=== PATIENT | female | born 1950 | race Caucasian/White ===

== ENCOUNTER 2023-02-14 08:48 | Outpatient (OUT) | payer MEDICARE, SELFPAY ==
[2023-02-14 09:42] LABS: Basophils Absolute Auto 0.1 10^3/uL (0.0-0.1); Basophils Percent Auto 0.6 % (0.2-2.0); Eosinophils Absolute Auto 0.3 10^3/uL (0.0-0.7); Eosinophils Percent Auto 3.2 % (0.9-7.0); Hematocrit 39.9 % (36.0-48.0); Hemoglobin 12.3 g/dL (12.0-16.0); Immature Granulocytes Abs Auto 0.12 10^3/uL (0.00-0.03); Immature Granulocytes Pct Auto 1.1 % (0.0-0.5); Lymphocytes Absolute Auto 2.1 10^3/uL (1.2-3.8); Lymphocytes Percent Auto 19.8 % (20.5-60.0); Mean Corpuscular HGB Conc 30.8 g/dL (29.9-35.2); Mean Corpuscular Volume 87.7 fL (81.0-99.0); Mean Platelet Volume 9.2 fL (9.5-13.5); Monocytes Percent Auto 9.7 % (1.7-12.0); Neutrophils Percent Auto 65.6 % (43.0-75.0); Platelet Count 302 10^3/uL (150-450); Red Blood Count 4.55 10^6/uL (4.20-5.40); Red Cell Distribution Width 14.4 % (11.0-15.0); White Blood Count 10.6 10^3/uL (4.0-11.0)
[2023-02-14 09:51] LABS: Estimated Average Glucose 117 mg/dL; Glycohemoglobin A1C 5.7 % (4.5-6.2)
[2023-02-14 10:31] LABS: Alanine Aminotransferase 22 U/L (14-59); Albumin Level 3.4 g/dL (3.4-5.0); Alkaline Phosphatase 57 U/L (46-116); Anion Gap 12.5; Aspartate Amino Transferase 16 U/L (15-37); BUN Creatinine Ratio 20.4; Bilirubin Total 0.2 mg/dL (0.2-1.0); Calcium 9.9 mg/dL (8.5-10.1); Chloride 100 mmol/L (98-107); Chol HDL Ratio 2.1; Cholesterol 283 mg/dL (<=200); Estimated GFR (African America >60 (>=60); Estimated GFR (Non-African Ame 59 (>=60); Free T3 2.28 pg/mL (2.18-3.98); Globulin 3.5 g/dL; Glucose 88 mg/dL (74-106); HDL Cholesterol 134 mg/dL (40-60); Potassium 3.5 mmol/L (3.5-5.1); Sodium 140 mmol/L (136-145); Total Protein 6.9 g/dL (6.4-8.2); Triglycerides 190 mg/dL (<=150)
== END 2023-02-14 08:49 | disposition home or self-care (01) ==
PROVIDERS: PCP Family Medicine; Visit Provider Family Medicine
DX: E55.9 Vitamin D deficiency, unspecified (principal); R73.9 Hyperglycemia, unspecified; E03.9 Hypothyroidism, unspecified; G47.00 Insomnia, unspecified; R03.0 Elevated blood-pressure reading, without diagnosis of hypertension; J44.9 Chronic obstructive pulmonary disease, unspecified
CPT/HCPCS: 36415; 80053; 80061; 83036; 84436; 84443; 84481; 85025

== ENCOUNTER 2023-06-13 12:41 | Day surgery (SDC) | payer OTHER, SELFPAY ==
[2023-06-13] VITALS (15 sets, daily range): BP systolic 105–158; BP diastolic 64–84; PULSE 87–120; TEMP 36.3–36.6; O2SAT 95–100; BMI 21.1; BMI 21.3
--- NOTE | 2023-06-13 | HP_ITS ---
Date: 06/13/2023 CHIEF COMPLAINT: Food impaction. HISTORY OF PRESENT ILLNESS: Patient is a 72-year-old female with history of COPD, hypothyroidism, macular degeneration, depression, gastroesophageal reflux disease, who presented to the emergency room this afternoon with complaint of food impaction. She reports that she was eating chicken late yesterday afternoon and felt that it lodged in her upper esophagus. She has had this happen several other times in the past, but always was able to bring it up or swallow it down. She did try multiple tricks and was unable to get it to dislodge. She is unable to eat or drink and has been spitting up some of her saliva as well. In the emergency room, she had normal laboratory evaluation. Did have Glucagon with no results. She did have a normal EGD approximately two years ago, which was done for gastroesophageal reflux disease. She does take PPIs intermittently, just [id number]. She denies aspirin, nonsteroidal anti-inflammatory drugs. Only abdominal surgery has been a cholecystectomy. PAST SURGICAL HISTORY: Significant for the cholecystectomy, bilateral cataract extraction, previous EGD and colonoscopy in 2021. SOCIAL HISTORY: She is a former smoker. Rare alcohol use. No illicit drug use. FAMILY HISTORY: Noncontributory. ALLERGIES: Patient has no known drug allergies. HOME MEDICATIONS: Include albuterol inhaler, amitriptyline and levothyroxine, as well as [id number] proton pump inhibitor. REVIEW OF SYSTEMS: Ten system review of systems is negative for recent weight loss or weight gain. She denies increased fatigue or light-headedness. Has had no earache or tinnitus. No sinus congestion. No sore throat or hoarseness. No chest pain, palpitations or syncope. No chronic cough, shortness of breath or hemoptysis. No abdominal pain, nausea or vomiting. No diarrhea, constipation or decreased caliber of the stool. No melena, hematochezia or bright red blood per rectum. No dysuria, frequency, urgency or hematuria. No headaches, seizures or tremors. No easy bruising or bleeding. No heat or cold intolerance. No polydipsia, polyphagia or polyuria. PHYSICAL EXAM: VITAL SIGNS: Patient is afebrile. Blood pressure is 136/74. Heart rate is 104 and regular. Respiratory rate is 16. O2 saturation is 96% on room air. GENERAL: In general, she is an elderly, white female in no acute distress. HEENT: Normocephalic, atraumatic. Sclerae anicteric. Conjunctiva not injected. Oral mucosa is moist without lesions. NECK: Supple. No adenopathy, thyromegaly or JVD. LUNGS: Clear bilaterally. CARDIAC EXAM: Regular rhythm and rate without appreciable murmurs, rubs or gallops. ABDOMEN: Soft, non-tender, non-distended. There are normal bowel sounds. No masses, hepatosplenomegaly or hernias. No CVA tenderness. SKIN: Warm and dry without lesions, rashes or ulcers. NEURO EXAM: Non-focal. Non-lateralizing. Patient is awake, alert, oriented with appropriate affect. MUSCULOSKELETAL EXAM: Reveals normal muscle strength, mass and tone. ASSESSMENT: A 72-year-old female with evidence of food impaction, long history of gastroesophageal reflux disease. PLAN: The plan is to proceed with EGD under general anesthesia for possible reduction or removal of food bolus. Indications, risks, benefits, alternatives of proceeding were explained extensively to the patient, including risks of bleeding, aspiration, esophageal/gastric/duodenal perforation or anesthetic complications. All of her questions were answered. Informed consent was obtained. CC: Patient?s family physician GLORIA
--- NOTE | 2023-06-13 | OP_ITS ---
OPERATION DATE: 06/13/2023 PREOPERATIVE DIAGNOSIS: Food impaction. POSTOPERATIVE DIAGNOSIS: Food impaction in the upper esophagus and small hiatal hernia. PROCEDURE: EGD with removal and reduction of food bolus. SURGEON: Italo Mark M.D. ANESTHESIA: General endotracheal. ESTIMATED BLOOD LOSS: Zero. INDICATIONS AND CONSENT: Patient is a 72-year-old female with an approximately 24 hour history of a food impaction of the upper esophagus. She was unable to eat or drink or swallow most of her saliva. Indications, risks, benefits, alternatives of proceeding with EGD with removal/reduction of food bolus were explained extensively to the patient, including the risks of bleeding, aspiration, esophageal/gastric/duodenal perforation or anesthetic complications. All of her questions were answered. Informed consent was obtained. PROCEDURE: Patient brought to the operating room, placed in the supine position. General anesthesia was induced. She was then placed in the left lateral decubitus position. Bite block was placed in the patient?s mouth. Scope was inserted into the oropharynx. Under direct visualization, it was advanced. In the upper esophagus, right at the area of the cricopharyngeus, there was noted to be a food bolus consisting of chicken that was obstructing the esophagus. With the graspers, I was able to break up several chunks of the chicken and pull this out through the scope. This allowed it to then be dislodged and went down the esophagus into the stomach. The scope was advanced. There was no irritation of bleeding. There was some liquid within the stomach, no other food, no other gastric mucosal abnormalities. The scope was retroflexed. There was noted to be a sliding type, small hiatal hernia. The GE junction was noted at approximately 37 cm. There was some mild distal esophagitis without Mendiola?s changes. Within the upper esophagus, there was noted to be an inlet patch, as well as some irritation from where the food bolus was sitting, but no ulceration or bleeding. The scope was then withdrawn. Patient tolerated procedure well, was extubated, sent to recovery room in good condition. CC: Masoud Taylor M.D. [facility]ITALLouie
--- NOTE | 2023-06-13 13:04 | ED.GENADUL1 ---
HPI HPI - General Adult General Chief complaint: Skin/Abscess/Foreign Body Stated complaint: DIFFICULTY SWALLOWING Time Seen by Provider: 06/13/23 13:04 Source: patient Mode of arrival: walk-in Limitations: no limitations History of Present Illness HPI narrative: This patient is here for probable esophageal foreign body. She states that she was eating some boiled chicken last night and a piece of chicken got stuck. She has not been able to eat or drink anything since that time. She says it happened several times previously but it always passed without therapeutic intervention. She said that Dr. Sims did an upper endoscopy on her several years ago and it was normal. Related Data Home Medications ?Medication ?Instructions ?Recorded ?Confirmed albuterol sulfate 90 mcg/actuation inhalation 06/13/23 aerosol inhaler amitriptyline 150 mg tablet mg 06/13/23 fluticasone 100 mcg-salmeterol 50 inhalation 06/13/23 mcg/dose blistr powdr for inhalation levothyroxine 88 mcg tablet mcg 06/13/23 Allergies Allergy/AdvReac Type Severity Reaction Status Date / Time No Known Drug Allergies Allergy Verified 06/13/23 12:45 Opioid HPI Opioid Management Most Recent Opioid Data: No Data to Display Exam Narrative Exam Narrative: Patient well-hydrated well-nourished comes to us with basin for salivary secretions. Her voice is normal. There is no stridor there is no respiratory distress she is not particularly anxious. Skin is warm and dry mucous membranes are moist and pink she does not appear when I asked her to drink an ounce of water she immediately regurgitates it. Her lungs are clear with no wheeze rales or rhonchi. Heart sounds are normal. Skin and integument are normal. Constitutional Vital Signs, click to edit/add: Last Vital Signs Temp 97.8 F 06/13/23 12:45 Pulse 120 H 06/13/23 12:45 Resp 18 06/13/23 12:45 BP 158/74 H 06/13/23 12:45 Pulse Ox 98 06/13/23 12:45 O2 Del Method Room Air 06/13/23 12:45 Course Vital Signs Vital signs: Vital Signs Temperature 97.8 F 06/13/23 12:45 Pulse Rate 120 H 06/13/23 12:45 Respiratory Rate 18 06/13/23 12:45 Blood Pressure 158/74 H 06/13/23 12:45 Pulse Oximetry 98 06/13/23 12:45 Oxygen Delivery Method Room Air 06/13/23 12:45 Temperature 97.8 F 06/13/23 12:45 Pulse Rate 120 H 06/13/23 12:45 Respiratory Rate 18 06/13/23 12:45 Blood Pressure 158/74 H 06/13/23 12:45 Pulse Oximetry 98 06/13/23 12:45 Oxygen Delivery Method Room Air 06/13/23 12:45 Medical Decision Making MDM Narrative Medical decision making narrative: Patient has a piece of esophageal foreign body which is probably food product from yesterday. She has passed the spontaneously in the past but did not have any success today before she arrived here and the glucagon was not helpful. We will page Dr. Sims on-call surgery Lab Data Labs: Lab Results 06/13/23 Range/Units 13:15 WBC 8.3 (4.0-11.0) 10^3/uL RBC 4.74 (4.20-5.40) 10^6/uL Hgb 12.6 (12.0-16.0) g/dL Hct 40.5 (36.0-48.0) % MCV 85.4 (81.0-99.0) fL MCH 26.6 L (26.7-34.0) pg MCHC 31.1 (29.9-35.2) g/dL RDW 14.0 (11.0-15.0) % Plt Count 294 (150-450) 10^3/uL MPV 9.5 (9.5-13.5) fL Neut % (Auto) 74.4 (43.0-75.0) % Lymph % (Auto) 12.0 L (20.5-60.0) % [place] % (Auto) 9.4 (1.7-12.0) % Eos % (Auto) 3.5 (0.9-7.0) % Baso % (Auto) 0.5 (0.2-2.0) % Neut # (Auto) 6.2 (1.4-6.5) 10^3/uL Lymph # (Auto) 1.0 L (1.2-3.8) 10^3/uL [place] # (Auto) 0.8 (0.3-0.8) 10^3/uL Eos # (Auto) 0.3 (0.0-0.7) 10^3/uL Baso # (Auto) 0.0 (0.0-0.1) 10^3/uL Abs Immat Gran (auto) 0.02 (0.00-0.03) 10^3/uL Imm/Tot Granulo (auto) 0.2 (0.0-0.5) % Discharge Plan Discharge Chief Complaint: Skin/Abscess/Foreign Body Clinical Impression: Acute esophageal obstruction Patient Disposition: Admitted as Observation Time of Disposition Decision: 13:39 Prescriptions / Home Meds: No Action levothyroxine 88 mcg tablet fluticasone propion-salmeterol 100-50 mcg/dose blister with device INHALATION albuterol sulfate 90 mcg/actuation HFA aerosol inhaler INHALATION amitriptyline 150 mg tablet Print Language: Italian Referrals: Masoud Taylro MD [Primary Care Provider] - 1 week
--- NOTE | 2023-06-13 13:08 | ECG_ITS ---
[facility] Test Date: 2023-06-13 Pat Name: JESSICA KIRKPATRICK Department: Room: - Gender: Female Investigative Agent: : [id number] Requested By: SUMANTH PEARCE Order Number: [id number] Reading MD: ROSEY AGUILLON Measurements Intervals [place] Rate: 105 P: 61 WI: 132 QRS: 53 QRSD: 72 T: 58 QT: 336 QTc: 397 Interpretive Statements 1120 Sinus tachycardia 9140 abnormal rhythm ECG No previous ECG available for comparison Electronically Signed On 06-18-2023 22:29:18 EDT by ROSEY AGUILLON
[2023-06-13] MEDS: GLUCAGON 1 MG/ML VIAL IV (13:15)
[2023-06-13 13:23] LABS: Basophils Percent Auto 0.5 % (0.2-2.0); Eosinophils Absolute Auto 0.3 10^3/uL (0.0-0.7); Eosinophils Percent Auto 3.5 % (0.9-7.0); Hematocrit 40.5 % (36.0-48.0); Hemoglobin 12.6 g/dL (12.0-16.0); Immature Granulocytes Abs Auto 0.02 10^3/uL (0.00-0.03); Immature Granulocytes Pct Auto 0.2 % (0.0-0.5); Mean Corpuscular HGB Conc 31.1 g/dL (29.9-35.2); Mean Corpuscular Hemoglobin 26.6 pg (26.7-34.0); Mean Corpuscular Volume 85.4 fL (81.0-99.0); Mean Platelet Volume 9.5 fL (9.5-13.5); Monocytes Absolute Auto 0.8 10^3/uL (0.3-0.8); Monocytes Percent Auto 9.4 % (1.7-12.0); Neutrophils Absolute Auto 6.2 10^3/uL (1.4-6.5); Neutrophils Percent Auto 74.4 % (43.0-75.0); Platelet Count 294 10^3/uL (150-450); Red Blood Count 4.74 10^6/uL (4.20-5.40); White Blood Count 8.3 10^3/uL (4.0-11.0)
[2023-06-13 13:40] LABS: Alanine Aminotransferase 19 U/L (14-59); Albumin Level 3.7 g/dL (3.4-5.0); Alkaline Phosphatase 94 U/L (46-116); Aspartate Amino Transferase 20 U/L (15-37); BUN Creatinine Ratio 20.3; Bilirubin Total 0.4 mg/dL (0.2-1.0); Calcium 9.8 mg/dL (8.5-10.1); Carbon Dioxide 25.4 mmol/L (21.0-32.0); Chloride 104 mmol/L (98-107); Estimated GFR (African America >60 (>=60); Estimated GFR (Non-African Ame >60 (>=60); Globulin 3.7 g/dL; Glucose 93 mg/dL (74-106); Potassium 3.4 mmol/L (3.5-5.1); Sodium 143 mmol/L (136-145); Total Protein 7.4 g/dL (6.4-8.2)
--- OUTSIDE RECORDS SUMMARY | 2023-06-13 17:02 | XMS_ITS | CCD ---
Author Organization [facility] Care Team Providers Care Rfid Manager Name Role Phone Sumanth Taylor Primary Care Physician RAMSES ., DR JULIO Admitting Unavailable HOY ., DR JULIO Attending Unavailable HOY ., DR JULIO Primary Care Unavailable HOY ., DR JULIO Consulting Unavailable HOY ., DR JULIO Admitting Unavailable HOY ., DR JULIO Attending Unavailable HOY ., DR JULIO Primary Care Unavailable HOY ., DR JULIO Consulting Unavailable HOY ., DR JULIO Admitting Unavailable HOY ., DR JULIO Attending Unavailable HOY ., DR JULIO Primary Care Unavailable HOY ., DR JULIO Consulting Unavailable ZIEBER, DR YENY Ferrera Consulting Unavailable NILL ., DR DAVID Admitting Unavailable NILL ., DR DAVID Attending Unavailable HOY ., DR JULIO Primary Care Unavailable ZIEBER, DR YENY Ferrera Consulting Unavailable NILL ., DR DAVID Consulting Unavailable AGUBOSIM, PRIYANK Consulting Unavailable MARK, EUSEBIO Consulting Unavailable HOY ., DR JULIO Admitting Unavailable HOY ., DR JULIO Attending Unavailable HOY ., DR JULIO Primary Care Unavailable HOY ., DR JULIO Consulting Unavailable HOY ., DR SUMANTH Tinsleyitting Unavailable HOY ., DR JULIO Attending Unavailable HOY ., DR JULIO Primary Care Unavailable HOY ., DR JULIO Consulting Unavailable Medications Current Medications Medication Drug Class(es) Dates Sig (Normalized) Sig (Original) albuterol HFA 90 mcg/inh MDI (1 source) Start: 06-19-2021 take 2 puff(s) by inhalation four times daily as needed for wheezing albuterol HFA 90 mcg/inh MDI 2 puff(s), Inhalation, QID as needed for wheezing, Refill(s) 0 Start Date: 06/19/21 Status: Ordered amitriptyline hydrochloride 100 mg oral tablet (1 source) Tricyclic Antidepressant Start: 06-19-2021 take 1 tablet by mouth once daily at bedtime amitriptyline 100 mg oral tablet 100 mg = 1 tab(s), Oral, Once a day (at bedtime), Refills(s) 0 Start Date: 06/19/21 Status: Ordered cholecalciferol 0.05 mg oral capsule (1 source) Vitamin D Start: 06-19-2021 take 1 tablet by mouth once daily Vitamin D3 2000 intl units oral Tab = 1 tab(s), Oral, Daily, tab(s), Refills(s) 0 Start Date: 06/19/21 Status: Ordered ferrous sulfate 325 mg delayed release oral tablet (1 source) Start: 06-21-2021 take 1 tablet by mouth twice daily ferrous sulfate 325 mg oral enteric coated tablet 325 mg = 1 tab(s), Oral, BID, Refills(s) 0 Start Date: 06/21/21 Status: Ordered levothyroxine sodium 0.088 mg oral tablet (1 source) l-Thyroxine Start: 06-19-2021 take 1 tablet by mouth once daily levothyroxine 88 mcg (0.088 mg) Tab 88 mcg = 1 tab(s), Oral, Daily, Refills(s) 0 Start Date: 06/19/21 Status: Ordered omeprazole 20 mg Cap-DR (1 source) Start: 06-19-2021 take 1 capsule by mouth once daily omeprazole 20 mg Cap-DR 20 mg = 1 cap(s), Oral, Daily, Refills(s) 0 Start Date: 06/19/21 Status: Ordered Symbicort 80/4.5 inhalation aerosol with adapter (1 source) Start: 06-19-2021 take 2 puff(s) by inhalation twice daily Symbicort 80/4.5 inhalation aerosol with adapter 2 puff(s), Inhalation, BID, Refill(s) 0 Start Date: 06/19/21 Status: Ordered Problems Active Problems Problem Classification Problem Date Documented Da te Episodic/Chronic Asthma (1 source) Asthma 06-19-2021 Chronic Chronic obstructive pulmonary disease and bronchiectasis (2 sources) Chronic obstructive lung disease; Translations: [Chronic obstructive pulmonary disease, unspecified] Onset: 2 06-19-2021 Chronic Deficiency and other anemia (2 sources) Iron deficiency anemia; Translations: [Iron deficiency anemia, unspecified] Onset: 2 Episodic Disorders of lipid metabolism (1 source) Hyperlipidemia, unspecified; Translations: [HYPERLIPIDEMIA UNSPECIFIED] Onset: 2 Chronic Diverticulosis and diverticulitis (5 sources) Diverticulosis of intestine, part unspecified, without perforation or abscess without bleeding; Translations: [Diverticulosis of large intestine without perforation or abscess without bleeding] Onset: 2 Chronic Esophageal disorders (3 sources) Gastroesophageal reflux disease without esophagitis; Translations: [Gastro-esophageal reflux disease without esophagitis] Onset: 2 Chronic Gastroduodenal ulcer (except hemorrhage) (1 source) Peptic ulcer 06-19-2021 Chronic Menopausal disorders (4 sources) Other primary ovarian failure; Translations: [OTHER PRIMARY OVARIAN FAILURE] Onset: 3 Chronic Mood disorders (1 source) Depressive disorder 06-19-2021 Chronic Nutritional deficiencies (2 sources) Vitamin D deficiency; Translations: [Vitamin D deficiency, unspecified] Onset: 2 06-19-2021 Chronic Osteoporosis (6 sources) Osteoporosis; Translations: [Age-related osteoporosis without current pathological fracture] Onset: 3 06-19-2021 Chronic Other gastrointestinal disorders (1 source) Irritable bowel syndrome 06-19-2021 Chronic Other gastrointestinal disorders (1 source) Altered bowel function; Translations: [Change in bowel habit] Onset: 2 Episodic Other gastrointestinal disorders (1 source) Alteration in bowel elimination 06-21-2021 Episodic Other liver diseases (1 source) Abnormal liver function 06-19-2021 Chronic Spondylosis; intervertebral disc disorders; other back problems (1 source) Low back pain 06-19-2021 Episodic Substance-related disorders (1 source) Nicotine dependence 06-19-2021 Chronic Thyroid disorders (2 sources) Hypothyroidism; Translations: [Hypothyroidism, unspecified] Onset: 2 06-19-2021 Chronic Unclassified (1 source) Body mass index 20-24 - normal 06-21-2021 Past or Other Problems Problem Classification Problem Date Documented Da te Episodic/Chronic Deficiency and other anemia (1 source) Anemia, unspecified; Translations: [ANEMIA UNSPECIFIED] Onset: 11-01-2021 Episodic Deficiency and other anemia (4 sources) Iron deficiency anemia, unspecified; Translations: [IRON DEFICIENCY ANEMIA UNSPECIFIED] Onset: 08-02-2021 Episodic Diabetes mellitus without complication (6 sources) Hyperglycemia; Translations: [Hyperglycemia, unspecified] Onset: 06-13-2021 06-19-2021 Episodic Gastroduodenal ulcer (except hemorrhage) (3 sources) H/O: peptic ulcer; Translations: [Personal history of peptic ulcer disease] Onset: 06-21-2021 Episodic Malaise and fatigue (1 source) Other fatigue; Translations: [OTHER FATIGUE] Onset: 06-16-2021 Episodic Other gastrointestinal disorders (1 source) Change in bowel habit; Translations: [CHANGE IN BOWEL HABIT] Onset: 08-04-2021 Episodic Other screening for suspected conditions (not mental disorders or infectious disease) (5 sources) Encounter for screening for malignant neoplasm of rectum; Translations: [ENC SCREEN MALIG NEOPLASM RECTUM] Onset: 06-14-2021 Episodic Residual codes; unclassified (1 source) Acquired absence of other specified parts of digestive tract; Translations: [ACQ ABSENCE OTH PART DIGESTV TRACT] Onset: 08-04-2021 Episodic Screening and history of mental health and substance abuse codes (1 source) Personal history of nicotine dependence; Translations: [PERSONAL HISTORY OF NICOTINE DEPEND] Onset: 08-04-2021 Episodic Results Test Name Value Interpretation Reference Range Facility CALCIUMon 04-23-2022 Calcium [Mass/Vol] 8.8 mg/dL Normal 8.5-10.1 [facility] Comment on above: Performed By: #### T 4, CMP, FT3, TSH, LIPID #### [facility] [address] [address] [address] Juan M Soria CREATININEon 04-23-2022 Creatinine [Mass/Vol] 0.77 mg/dL Normal 0.55-1.02 [facility] Comment on above: Performed By: #### T 4, CMP, FT3, TSH, LIPID #### [facility] [address] [address] [address] Juan M Soria EGFR-AF PALESTINIAN >60 Normal >=60 [facility] Comment on above: Performed By: #### T 4, CMP, FT3, TSH, LIPID #### [facility] [address] [address] [address] Juan M Soria EGFR-NON AF PALESTINIAN >60 Normal >=60 [facility] Comment on above: Performed By: #### T 4, CMP, FT3, TSH, LIPID #### [facility] [address] [address] [address] Juan M Soria XR DEXA BONE DENSITYon 04-17 XR DEXA BONE DENSITY EXAMINATION: XR DEX A BONE DENSITY, 04/17/2022 10:19 AM EST HISTORY: Primary ovarian failure COMPARISON: DEXA bone densitometry 06/11/2016 TECHNIQUE: Dual-energy X-ray absorptiometry (DEXA) bone density study performed for the axial skeleton. FINDINGS: SPINE ANALYSIS: Average bone mineral density is 1.009 g/cm2. T-score (standard deviation relative to young adult mean): -1.4 . -5.5% change since prior study. HIP ANALYSIS: Lowest bone mineral density is within the left femoral trochanter, 0.537 g/cm2. T-score (standard deviation relative to young adult mean): -2.7 . -6.1% change since prior study. IMPRESSION: World [employer] Organization Classification: Osteoporosis - High Fracture Risk Electronically authenticated by: YENY PEARCE Date: 2022-04-17 12:02 Normal [facility] CBC AUTO DIFFon 10-31-2021 BASO # 0.1 103/ul Normal 0.0-0.1 [facility] Comment on above: Performed By: #### C BC #### [facility] [address] [address] [address] Juan M Soria Basophils/100 WBC (Bld) 0.8 % Normal 0.2-2.0 [facility] Comment on above: Performed By: #### C BC #### [facility] [address] [address] [address] Juan M Soria EO # 0.2 103/ul Normal 0.0-0.7 [facility] Comment on above: Performed By: #### C BC #### [facility] [address] [address] [address] Juan M Soria Eosinophils/100 WBC (Bld) 3.6 % Normal 0.9-7.0 [facility] Comment on above: Performed By: #### C BC #### [facility] [address] [place] [address] Dr. Juan M Soria Erythrocyte distribution width (RBC) [Ratio] 14.9 % Normal 11.0-15.0 [facility] Comment on above: Performed By: #### C BC #### [facility] [address] [place] [address] Dr. Juan M Soria Hematocrit (Bld) [Volume fraction] 39.7 % Normal 36.0-48.0 [facility] Comment on above: Performed By: #### C BC #### [facility] [address] [place] [address] Dr. Juan M Soria Hemoglobin (Bld) [Mass/Vol] 12.7 g/dL Normal 12.0-16.0 [facility] Comment on above: Performed By: #### C BC #### [facility] [address] [place] [address] Dr. Juan M Soria IG # 0.01 10e3/ul Normal 0.00-0.03 [facility] Comment on above: Performed By: #### C BC #### [facility] [address] [place] [address] Dr. Juan M Soria IG % 0.2 % Normal 0.0-0.5 [facility] Comment on above: Performed By: #### C BC #### [facility] [address] [place] [address] Dr. Juan M Soria LYMPH # 1.2 103/ul Normal 1.2-3.8 [facility] Comment on above: Performed By: #### C BC #### [facility] [address] [place] [address] Dr. Juan M Soria Lymphocytes/100 WBC (Bld) 19.8 % Critically low 20.5-60.0 [facility] Comment on above: Performed By: #### C BC #### [facility] [address] [place] [address] Dr. Juan M Soria MANUAL DIFF REQ NO Normal [facility] Comment on above: Performed By: #### C BC #### [facility] [address] [place] [address] Dr. Juan M Soria MCH (RBC) [Entitic mass] 27.0 pg Normal 26.7-34.0 [facility] Comment on above: Performed By: #### C BC #### [facility] [address] [place] [address] Dr. Juan M Soria MCHC (RBC) [Mass/Vol] 32.0 g/dL Normal 29.9-35.2 [facility] Comment on above: Performed By: #### C BC #### [facility] [address] [place] [address] Dr. Juan M Soria MCV (RBC) [Entitic vol] 84.3 fL Normal 81.0-99.0 [facility] Comment on above: Performed By: #### C BC #### [facility] [address] [place] [address] Dr. Juan M Soria MONO # 0.5 103/ul Normal 0.3-0.8 [facility] Comment on above: Performed By: #### C BC #### [facility] [address] [place] [address] Dr. Juan M Soria Monocytes/100 WBC (Bld) 8.1 % Normal 1.7-12.0 [facility] Comment on above: Performed By: #### C BC #### [facility] [address] [place] [address] Dr. Juan M Soria NEUT # 4.0 103/ul Normal 1.4-6.5 [facility] Comment on above: Performed By: #### C BC #### [facility] [address] [place] [address] Dr. Juan M Soria Neutrophils/100 WBC (Bld) 67.5 % Normal 43.0-75.0 [facility] Comment on above: Performed By: #### C BC #### [facility] [address] [place] [address] Dr. Juan M Soria Platelet mean volume (Bld) [Entitic vol] 9.3 fL Critically low 9.5-13.5 [facility] Comment on above: Performed By: #### C BC #### [facility] [address] [address] [address] Juan M Soria PLT 245 103/ul Normal 150-450 [facility] Comment on above: Performed By: #### C BC #### [facility] [address] [address] [address] Juan M Soria RBC 4.71 106/ul Normal 4.20-5.40 [facility] Comment on above: Performed By: #### C BC #### [facility] [address] [address] [address] Juan M Soria WBC 5.9 103/ul Normal 4.0-11.0 [facility] Comment on above: Performed By: #### C BC #### [facility] [address] [place] [address] Dr. Juan M Soria FERRITINon 10-31-2021 Ferritin [Mass/Vol] 47.0 ng/mL Normal 8.0-252.0 [facility] Comment on above: Performed By: #### T 4, CMP, FT3, TSH, LIPID #### [facility] [address] [address] [address] Juan M Soria IRONon 10-31-2021 Iron [Mass/Vol] 81.0 ug/dL Normal 50.0-170.0 [facility] Comment on above: Performed By: #### I CORINA, FERR #### [facility] [address] [place] [address] Dr. Juan M Soria Outside Colonoscopyon 2021 Outside Colonoscopy [id number] 00CD:127 Normal [facility] RAD - MISCon 08-04-2021 RAD - MISC [id number] 00CD:127 Normal [facility] Reminderson 08-04-2021 Reminders - From: Mica Paredes LPN To: [facility] - Clinical; Sent: 08/04/2021 08:26:24 EDT Show up: 07/03/2031 07:00:00 EDT Subject: colonoscopy recall Due Date/Time: 08/03/2031 07:00:00 EDT Reminder/Recall Patient is due for screening colonoscopy 08/03/2031. Normal [facility] XR COLONon 08-02-2021 XR COLON EXAMINATION: XR COLO N AIR CONTR., XR COLON HISTORY: Iron deficiency anemia COMPARISON: No relevant comparison available. FLUOROSCOPY TIME: Fluoro time measures 3.9 minutes and 22 images were obtained. TECHNIQUE: An air contrast barium enema examination was performed in the usual manner. No salesperson meats abdominal radiograph was performed. Standard level fluoroscopic mode of operation utilized. FINDINGS: COLON: Small diverticula scattered along the length of colon, most frequent involving the sigmoid colon. No mass, stricture, or appreciable mucosal irregularity. OTHER: Negative. IMPRESSION: 1. Long, redundant colon without appreciable mass, stricture, or suspicious findings. 2. Mild diverticulosis. Electronically authenticated by: YENY PEARCE Date: 2021-08-02 15:06 Normal [facility] Consent for Procedure/Surger yon 06-22-2021 Consent for Procedure/Surgery [id number]:127 Normal [facility] Ambulatory Visit Summaryon 0 06-21-2021 Ambulatory Visit Summary JESSICA KIRKPATRICK :1950 Visit Date:06/21/2021 Ambulatory Visit Instructions Your Care Team Attending Physician - HERBERT CONKLIN, Joann Ferrera Primary Care Physician - Sumanth Taylor MD Referring Physician - Sumanth Taylor MD This Is Your Medications List Contact prescribing physician if questions or concerns albuterol (albuterol HFA 90 mcg/inh MDI) amitriptyline (amitriptyline 100 mg oral tablet) budesonide-formoterol (Symbicort 80/4.5 inhalation aerosol with adapter) cholecalciferol (Vitamin D3 2000 intl units oral Tab) ferrous sulfate (ferrous sulfate 325 mg oral enteric coated tablet) levothyroxine (levothyroxine 88 mcg (0.088 mg) Tab) omeprazole (omeprazole 20 mg Cap-DR) Procedures Performed Cholecystectomy, Closed fracture of left little finger, History of - L cataract extraction, History of - R cataract extraction, Kyphoplasty of fracture of spine using fluoroscopic guidance. Discharge Vitals Heart Rate (Peripheral) 96 Respiratory Rate 16 Blood Pressure 120/66 Height 154.9 cm Height 154.9 cm Weight 54.9 kg Weight 54.9 kg BMI 22.88 Medications What How Much When Instructions Unchanged albuterol (albuterol HFA 90 mcg/ inh MDI) 2 Puffs Inhalation 4 times a day as needed for as needed for wheezing Contact prescribing physician if questions or concerns Unchanged amitriptyline (amitriptyline 100 mg oral tablet) 1 Tablets By Mouth Once a day (at bedtime) Contact prescribing physician if questions or concerns Unchanged budesonide-formoterol (Symbicort 80/ 4.5 inhalation aerosol with adapter) 2 Puffs Inhalation 2 times a day Contact prescribing physician if questions or concerns Unchanged cholecalciferol (Vitamin D3 2000 intl units oral Tab) 1 Tablets By Mouth Every day Contact prescribing physician if questions or concerns Unchanged ferrous sulfate (ferrous sulfate 325 mg oral enteric coated tablet) 1 Tablets By Mouth 2 times a day Contact prescribing physician if questions or concerns Unchanged levothyroxine (levothyroxine 88 mcg (0.088 mg) Tab) 1 Tablets By Mouth Every day Contact prescribing physician if questions or concerns Unchanged omeprazole (omeprazole 20 mg Cap-DR) 1 Capsules By Mouth Every day Contact prescribing physician if questions or concerns Allergies No Known Allergies No Known Medication Allergies Problems Ongoing - Any problem that you are currently receiving treatment for. Abnormal liver function Asthma BMI 22.0-22.9, adult Chronic obstructive pulmonary disease Depression GERD (gastroesophageal reflux disease) Hyperglycemia Hypothyroidism IBS (irritable bowel syndrome) Low back pain syndrome Nicotine addiction Osteoporosis PUD (peptic ulcer disease) Vitamin D deficiency Normal [facility] Physician Referralon 022 Physician Referral [id number]:127 Normal [facility] OCC BLD IMMUNO SCREENon OCCULT BLOOD Negative Normal NEGATIVE [facility] Comment on above: Performed By: #### T 4, CMP, FT3, TSH, LIPID #### [facility] [address] [place] [address] Dr. Juan M Soria CBC AUTO DIFFon 06-13-2021 BASO # 0.0 103/ul Normal 0.0-0.1 [facility] Comment on above: Performed By: #### T 4, CMP, FT3, TSH, LIPID #### [facility] [address] [place] [address] Dr. Juan M Soria Basophils/100 WBC (Bld) 0.6 % Normal 0.2-2.0 [facility] Comment on above: Performed By: #### T 4, CMP, FT3, TSH, LIPID #### [facility] [address] [place] [address] Dr. Juan M Soria EO # 0.3 103/ul Normal 0.0-0.7 [facility] Comment on above: Performed By: #### T 4, CMP, FT3, TSH, LIPID #### [facility] [address] [place] [address] Dr. Juan M Soria Eosinophils/100 WBC (Bld) 3.8 % Normal 0.9-7.0 [facility] Comment on above: Performed By: #### T 4, CMP, FT3, TSH, LIPID #### [facility] [address] [place] [address] Dr. Juan M Soria Erythrocyte distribution width (RBC) [Ratio] 16.6 % Critically high 11.0-15.0 [facility] Comment on above: Performed By: #### T 4, CMP, FT3, TSH, LIPID #### [facility] [address] [place] [address] Dr. Juan M Soria Hematocrit (Bld) [Volume fraction] 30.7 % Critically low 36.0-48.0 [facility] Comment on above: Performed By: #### T 4, CMP, FT3, TSH, LIPID #### [facility] [address] [place] [address] Dr. Juan M Soria Hemoglobin (Bld) [Mass/Vol] 9.1 g/dL Critically low 12.0-16.0 [facility] Comment on above: Performed By: #### T 4, CMP, FT3, TSH, LIPID #### [facility] [address] [address] [address] Juan M Soria IG # 0.03 10e3/ul Normal 0.00-0.03 [facility] Comment on above: Performed By: #### T 4, CMP, FT3, TSH, LIPID #### [facility] [address] [place] [address] Dr. Juan M Soria IG % 0.5 % Normal 0.0-0.5 [facility] Comment on above: Performed By: #### T 4, CMP, FT3, TSH, LIPID #### [facility] [address] [place] [address] Dr. Juan M Soria LYMPH # 1.1 103/ul Critically low 1.2-3.8 [facility] Comment on above: Performed By: #### T 4, CMP, FT3, TSH, LIPID #### [facility] [address] [place] [address] Dr. Juan M Soria Lymphocytes/100 WBC (Bld) 16.8 % Critically low 20.5-60.0 [facility] Comment on above: Performed By: #### T 4, CMP, FT3, TSH, LIPID #### [facility] [address] [place] [address] Dr. Juan M Soria MANUAL DIFF REQ NO Normal [facility] Comment on above: Performed By: #### T 4, CMP, FT3, TSH, LIPID #### [facility] [address] [place] [address] Dr. Juan M Soria MCH (RBC) [Entitic mass] 22.4 pg Critically low 26.7-34.0 [facility] Comment on above: Performed By: #### T 4, CMP, FT3, TSH, LIPID #### [facility] [address] [place] [address] Dr. Juan M Soria MCHC (RBC) [Mass/Vol] 29.6 g/dL Critically low 29.9-35.2 [facility] Comment on above: Performed By: #### T 4, CMP, FT3, TSH, LIPID #### [facility] [address] [place] [address] Dr. Juan M Soria MCV (RBC) [Entitic vol] 75.4 fL Critically low 81.0-99.0 [facility] Comment on above: Performed By: #### T 4, CMP, FT3, TSH, LIPID #### [facility] [address] [place] [address] Dr. Juan M Soria MONO # 0.4 103/ul Normal 0.3-0.8 [facility] Comment on above: Performed By: #### T 4, CMP, FT3, TSH, LIPID #### [facility] [address] [place] [address] Dr. Juan M Soria Monocytes/100 WBC (Bld) 5.9 % Normal 1.7-12.0 [facility] Comment on above: Performed By: #### T 4, CMP, FT3, TSH, LIPID #### [facility] [address] [place] [address] Dr. Juan M Soria NEUT # 4.8 103/ul Normal 1.4-6.5 [facility] Comment on above: Performed By: #### T 4, CMP, FT3, TSH, LIPID #### [facility] [address] [place] [address] Dr. Juan M Soria Neutrophils/100 WBC (Bld) 72.4 % Normal 43.0-75.0 [facility] Comment on above: Performed By: #### T 4, CMP, FT3, TSH, LIPID #### [facility] [address] [place] [address] Dr. Juan M Soria Platelet mean volume (Bld) [Entitic vol] 9.1 fL Critically low 9.5-13.5 [facility] Comment on above: Performed By: #### T 4, CMP, FT3, TSH, LIPID #### [facility] [address] [place] [address] Dr. Juan M Soria PLT 289 103/ul Normal 150-450 [facility] Comment on above: Performed By: #### T 4, CMP, FT3, TSH, LIPID #### [facility] [address] [place] [address] Dr. Juan M Soria RBC 4.07 106/ul Critically low 4.20-5.40 [facility] Comment on above: Performed By: #### T 4, CMP, FT3, TSH, LIPID #### [facility] [address] [address] [address] Juan M Soria WBC 6.7 103/ul Normal 4.0-11.0 [facility] Comment on above: Performed By: #### T 4, CMP, FT3, TSH, LIPID #### [facility] [address] [address] [address] Juan M Soria FREE T3on 06-13-2021 FREE T3 2.54 pg/mlL Normal 2.18-3.98 [facility] Comment on above: Performed By: #### T 4, CMP, FT3, TSH, LIPID #### [facility] [address] [place] [address] Dr. Juan M Soria GLYCOHEMOGLOBIN A1Con 2021 ADA RECOMMENDATION SEE BELOW Normal [facility] Comment on above: Result Comment: ADA RECOMMENDED LIMIT 4.0 - 6.0 ADA THERAPEUTIC TARGET < 7.0 ACTION SUGGESTED > 7.0 Performed By: #### T 4, CMP, FT3, TSH, LIPID #### [facility] [address] [place] [address] Dr. Juan M Soria Glucose [Mass/Vol] 123 mg/dL Normal [facility] Comment on above: Performed By: #### T 4, CMP, FT3, TSH, LIPID #### [facility] [address] [place] [address] Dr. Juan M Soria HbA1c (Bld) [Mass fraction] 5.9 % Normal 4.5-6.2 [facility] Comment on above: Performed By: #### T 4, CMP, FT3, TSH, LIPID #### [facility] [address] [place] [address] Dr. Juan M Soria LIPID PROFILEon 06-13-2021 CHOL-HDL RATIO NORM SEE BELOW Normal [facility] Comment on above: Result Comment: 3.3 - 4.4 LOW RISK 4.4 - 7.1 AVERAGE RISK 7.1 - 11.0 MODERATE RISK >11.0 HIGH RISK Performed By: #### T 4, CMP, FT3, TSH, LIPID #### [facility] [address] [address] [address] Juan M Soria Cholesterol [Mass/Vol] 249 mg/dL Critically high <=200 [facility] Comment on above: Performed By: #### T 4, CMP, FT3, TSH, LIPID #### [facility] [address] [address] [address] Juna M Soria Cholesterol in HDL [Mass/Vol] 132 mg/dL Critically high 40-60 [facility] Comment on above: Performed By: #### T 4, CMP, FT3, TSH, LIPID #### [facility] [address] [place] [address] Dr. Juan M Soria Cholesterol in LDL [Mass/Vol] 108.4 mg/dL Normal [facility] Comment on above: Performed By: #### T 4, CMP, FT3, TSH, LIPID #### [facility] [address] [place] [address] Dr. Juan M Soria Cholesterol.total/Cho lesterol in HDL [Mass ratio] 1.9 {ratio} Normal [facility] Comment on above: Performed By: #### T 4, CMP, FT3, TSH, LIPID #### [facility] [address] [place] [address] Dr. Juan M Soria HDL NORMAL > or = 60 mg/dl - LO W CARDIOVASCULAR RISK <40 mg/dl - HIGH CARDIOVASCULAR RISK Normal [facility] Comment on above: Performed By: #### T 4, CMP, FT3, TSH, LIPID #### [facility] [address] [place] [address] Dr. Juan M Soria LDL CALC NORMAL SEE BELOW Normal [facility] Comment on above: Result Comment: <100 mg/dl OPTIMAL 100 - 129 mg/dl NEAR OR ABOVE OPTIMAL 130 - 159 mg/dl BORDERLINE HIGH 160 - 189 mg/dl HIGH >190 mg/dl VERY HIGH Performed By: #### T 4, CMP, FT3, TSH, LIPID #### [facility] [address] [place] [address] Dr. Juan M Soria Triglyceride [Mass/Vol] 43 mg/dL Normal <=150 [facility] Comment on above: Performed By: #### T 4, CMP, FT3, TSH, LIPID #### [facility] [address] [address] [address] Juan M Soria VLDL CALC 8.6 mg/dL Normal [facility] Comment on above: Performed By: #### T 4, CMP, FT3, TSH, LIPID #### [facility] [address] [address] [address] Juan M Soria PROF 14(COMP METB)on 022 Albumin [Mass/Vol] 3.6 g/dL Normal 3.4-5.0 [facility] Comment on above: Performed By: #### T 4, CMP, FT3, TSH, LIPID #### [facility] [address] [place] [address] Dr. Juan M Soria Albumin/Globulin [Mass ratio] 0.9 {ratio} Normal [facility] Comment on above: Performed By: #### T 4, CMP, FT3, TSH, LIPID #### [facility] [address] [address] [address] Juan M Soria ALP [Catalytic activity/Vol] 106 U/L Normal 46-116 [facility] Comment on above: Performed By: #### T 4, CMP, FT3, TSH, LIPID #### [facility] [address] [address] [address] Juan M Soria ALT [Catalytic activity/Vol] 24 U/L Normal 14-59 [facility] Comment on above: Performed By: #### T 4, CMP, FT3, TSH, LIPID #### [facility] [address] [address] [address] Juan M Soria Anion gap [Moles/Vol] 10.9 mmol/L Normal [facility] Comment on above: Performed By: #### T 4, CMP, FT3, TSH, LIPID #### [facility] [address] [address] [address] Juan M Soria AST [Catalytic activity/Vol] 18 U/L Normal 15-37 [facility] Comment on above: Performed By: #### T 4, CMP, FT3, TSH, LIPID #### [facility] [address] [address] [address] Juan M Soria Bilirubin [Mass/Vol] 0.2 mg/dL Normal 0.2-1.0 [facility] Comment on above: Performed By: #### T 4, CMP, FT3, TSH, LIPID #### [facility] [address] [place] [address] Dr. Juan M Soria Calcium [Mass/Vol] 8.7 mg/dL Normal 8.5-10.1 [facility] Comment on above: Performed By: #### T 4, CMP, FT3, TSH, LIPID #### [facility] [address] [place] [address] Dr. Juan M Soria Chloride [Moles/Vol] 101 mmol/L Normal 98-107 [facility] Comment on above: Performed By: #### T 4, CMP, FT3, TSH, LIPID #### [facility] [address] [place] [address] Dr. Juan M Soria CO2 [Moles/Vol] 25.9 mmol/L Normal 21.0-32.0 [facility] Comment on above: Performed By: #### T 4, CMP, FT3, TSH, LIPID #### [facility] [address] [place] [address] Dr. Juan M Soria Creatinine [Mass/Vol] 0.83 mg/dL Normal 0.55-1.02 [facility] Comment on above: Performed By: #### T 4, CMP, FT3, TSH, LIPID #### [facility] [address] [place] [address] Dr. Juan M Soria EGFR-AF PALESTINIAN >60 Normal >=60 [facility] Comment on above: Performed By: #### T 4, CMP, FT3, TSH, LIPID #### [facility] [address] [place] [address] Dr. Juan M Soria EGFR-NON AF PALESTINIAN >60 Normal >=60 [facility] Comment on above: Performed By: #### T 4, CMP, FT3, TSH, LIPID #### [facility] [address] [place] [address] Dr. Juan M Soria Globulin (S) [Mass/Vol] 4.2 g/dL Normal [facility] Comment on above: Performed By: #### T 4, CMP, FT3, TSH, LIPID #### [facility] [address] [place] [address] Dr. Juan M Soria Glucose [Mass/Vol] 92 mg/dL Normal 74-106 [facility] Comment on above: Performed By: #### T 4, CMP, FT3, TSH, LIPID #### [facility] [address] [place] [address] Dr. Juan M Soria Potassium [Moles/Vol] 3.8 mmol/L Normal 3.5-5.1 [facility] Comment on above: Performed By: #### T 4, CMP, FT3, TSH, LIPID #### [facility] [address] [place] [address] Dr. Juan M Soria Protein [Mass/Vol] 7.8 g/dL Normal 6.1-8.2 [facility] Comment on above: Performed By: #### T 4, CMP, FT3, TSH, LIPID #### [facility] [address] [place] [address] Dr. Juan M Soria Sodium [Moles/Vol] 134 mmol/L Critically low 136-145 [facility] Comment on above: Performed By: #### T 4, CMP, FT3, TSH, LIPID #### [facility] [address] [place] [address] Dr. Juan M Soria Urea nitrogen [Mass/Vol] 10.0 mg/dL Normal 7.0-18.0 [facility] Comment on above: Performed By: #### T 4, CMP, FT3, TSH, LIPID #### [facility] [address] [place] [address] Dr. Juan M Soria Urea nitrogen/Creatinine [Mass ratio] 12.0 mg/mg Normal [facility] Comment on above: Performed By: #### T 4, CMP, FT3, TSH, LIPID #### [facility] [address] [place] [address] Dr. Juan M Soria T4on 06-13-2021 T4 [Mass/Vol] 10.10 ug/dL Normal 4.80-13.90 [facility] Comment on above: Performed By: #### T 4, CMP, FT3, TSH, LIPID #### [facility] [address] [place] [address] Dr. Juan M Soria TSHon 06-13-2021 TSH Qn m[IU]/L Critically low 0.470-4.680 [facility] Comment on above: Performed By: #### T 4, CMP, FT3, TSH, LIPID #### [facility] [address] [place] [address] Dr. Juan M Soria TSH RANGE SEE BELOW Normal [facility] Comment on above: Result Comment: <0.3 4 UIU/ml HYPERTHYROID 0.34-5.60 UIU/ml EUTHYROID >5.60 UIU/ml HYPOTHYROID Performed By: #### T 4, CMP, FT3, TSH, LIPID #### [facility] [address] [place] [address] Dr. Juan M Soria VITAMIN D 25 OHon 06-13-2021 VIT D 25-OH 42.1 ng/mL Normal [facility] Comment on above: Performed By: #### T 4, CMP, FT3, TSH, LIPID #### [facility] [address] [place] [address] Dr. Juan M Soria VIT D RANGES SEE BELOW Normal [facility] Comment on above: Result Comment: <20 ng/mL Vit D deficient 20 - <30 ng/mL Vit D insufficient 30 - 100 ng/mL Vit D sufficient >100 ng/mL Potential Toxicity Performed By: #### T 4, CMP, FT3, TSH, LIPID #### [facility] [address] [place] [address] Dr. Juan M Soria Vital Signs Date Time Vital Sign Value Performing Clinician Amy swanson 06-21-2021 15:25-0400 Blood Pressure Location Joann MARK [facility] [place] 06-21-2021 15:25-0400 Diastolic blood pressure 66 mm[Hg] Joann BERUMENL [facility] 06-21-2021 15:25-0400 Heart rate 96 /min Joann NILL [facility] [place] 06-21-2021 15:25-0400 Respiratory rate 16 /min Joann BERUMENL [facility] 06-21-2021 15:25-0400 Systolic blood pressure 120 mm[Hg] Joann BERUMENL [facility] Encounters Encounter Date Encounter Type Care Provider Facility Start: 04-23-2022 End: 04-23-[address] SUMANTH TAYLOR . Facility:[facility] Start: 04-17-2022 End: 04-18-[address] SUMANTH TAYLOR . Facility:[facility] Start: 10-31-2021 End: 11-01-[address] SUMANTH TAYLOR . Facility:[facility] Start: 08-02-2021 End: 08-02-[address] JOANN MARK . Facility:[facility] Start: 06-21-2021 End: 06-21-2021 Patient encounter procedure Joann Maisha JAMAICASrikanth [facility] Start: 06-15-2021 End: 06-15-[address] SUMANTH TAYLOR . Facility:[facility] Start: 06-13-2021 End: 06-14-[address] SUMANTH TAYLOR . Facility:[facility] Procedures Date Procedure Procedure Detail Performing Clinician Cholecystectomy Joann BERUMENSrikanth Closed fracture of p halanx of left little finger (disorder) Joann JAMAICAL H/O: L cataract extraction M cinthia JAMAICAL H/O: R cataract extraction M cinthia NILL Kyphoplasty of fract ure of spine using fluoroscopic guidance Joann MARK Payers Date Payer Category Payer Medicare [id number] 1959 Unknown [id number] 1950 Unknown [id number] 2.16.84 [id number] 1950 Unknown [id number] 2.16.84 [id number] 1950 Unknown [id number] 2.16.84 [id number] 1950 Unknown [id number] 2.16.84 [id number] 1950 Unknown [id number] 2.16.84 [id number] 1950 Unknown [id number] 2.16.84 [id number] Social History Date Type Detail Facility Start: 06-21-2021 Tobacco smoking status Ex-smoker (fi nding) [facility] [place] [facility] Tobacco smoking status Smokeless tobacco user within last 30 days [facility] Sex Assigned At Female Gen[facility] [place] [facility] Clinical Note 08-02-2021 Note Date & Type Note Facility 08-02-2021 Note OPERATIVE NOTE OPERATION DATE: 08/02/2021 PREOPERATIVE DIAGNOSIS: Iron deficiency anemia, gastroesophageal reflux disease, change in bowel habits, history of peptic ulcer disease. POSTOPERATIVE DIAGNOSIS: Normal EGD and colonoscopy to 60 cm with severe diverticulosis. SURGEON: Joann Mark M.D. ANESTHESIA: Monitored anesthesia care. ESTIMATED BLOOD LOSS: Zero. INDICATIONS AND CONSENT: Patient is a 70-year-old female with history of bowel changes, mild iron deficiency anemia, as well as history of GERD and history of peptic ulcer disease. Indications, risks, benefits, alternatives of proceeding with EGD and colonoscopy were explained extensively to the patient, including the risks of bleeding, aspiration, esophageal/gastric/duodenal or colonic perforation or anesthetic complications. All of her questions were answered. Informed consent was obtained. PROCEDURE: Patient was brought to the operating room, placed in the left lateral decubitus position. Monitored anesthesia care was provided. A bite block was placed in the patient's mouth. Scope was inserted into the oropharynx. Under direct visualization, it was advanced into the esophagus, past the cricopharyngeus, down into the stomach. The stomach was insufflated with air. The pylorus was traversed down to the descending portion of the duodenum. There was no evidence of blood, mass or ulceration. There was no scarring within the pyloric channel. Scope was pulled back into the stomach and retroflexed. There was no significant hiatal hernia, no gastric mucosal abnormalities. The GE junction was noted at approximately 35 cm. There was no distal esophagitis or Mendiola's changes. Remainder of the esophagus was unremarkable. The scope was then withdrawn. The patient was then positioned for colonoscopy. Rectal exam was performed which showed no masses or blood. Scope was inserted into the anal canal. Under direct visualization was advanced. With the aid of abdominal compression and positional changes, it was only able to be advanced to 60 cm. There was noted to be severe diverticulosis as well as a tight band at 60 cm that could not be navigated. Upon withdrawal of the scope, mucosal surfaces were carefully examined. There were no mass lesions or inflammatory changes. No polyps noted. The scope was retroflexed in the anal canal. There was noted to be no significant hemorrhoidal disease. The scope was then withdrawn. Patient tolerated procedure well, was sent to recovery room in good condition. Will be sent for barium enema for further evaluation. Follow up colonoscopy will be determined by barium enema results. CC: Sumanth Taylor M.D. [facility] Signed and Approved by: DR JOANN MARK . 08/03/2021 14:01:00 [facility] Clinical Note 06-21-2021 Note Date & Type Note Facility 06-21-2021 Note Chief Complaint consultation for anemia HPI Staff 70 year old female presents on consultation from Dr. Taylor for anemia. Labs completed 06/13 with HGB 9.1 and HCT 30.7. Denies abdominal or rectal pain. No rectal bleeding. Reports one week history of dark stools. Chronic constipation. Denies nausea or vomiting. No unexplained weight loss. Denies dizziness, lightheadedness or SOB. Last colonoscopy greater than 10 years ago, reported normal per patient. No known family history of colon cancer. History of Present Illness 70 yo female with h/o COPD, asthma, hypothyroidism, GERD, depression, osteoporosis; referred for iron-deficiency anemia; reports dark/black stools, formed for several months, prior to starting Iron therapy; hb 9.1; no abdominal pain, no N/V; no hematochezia or rectal bleeding; some abdominal bloating; patient reports remote h/o ulcer disease; remote EGD and colonoscopy over 25 years ago; only abdominal operation cholecystectomy; h/o asa and ibuprofen use for arthritis; no SBE prophylaxis; no fmhx of GI malignancy or IBD; h/o smoking, quit 2 years ago. Review of Systems PHQ Score Initial Depression Screen Score: 0 ROS - Provider Constitutional: no fever, no sweats, no weight loss. Eyes: no glasses, no blurred vision, no visual loss. ENMT: no dentures, no hoarseness, no swallowing difficulties, no hearing loss, no ear infection(s), no nose bleeds. Cardiovascular: normal blood pressure, no chest pain, regular heartbeat, no heart murmur. Respiratory: no shortness of breath, no cough, no asthma, no wheezing. Gastrointestinal: no nausea, no vomiting, no diarrhea, no constipation, no blood in stool, no change in bowel habits, no abdominal pain, no hepatitis. Genitourinary: no kidney stones, no urine infection, no dysuria. Musculoskeletal: no pain, no weakness. Skin: no changing moles, no rash, no skin lumps. Neurologic: no seizures, no epilepsy, no headache. Psychiatric: no emotional or psychiatric problem. Heme/Lymph: no bleeding problems, no anemia, no blood clots, no transfusions. Allergy/Immunologic: no swollen lymph nodes/glands, no IV drug abuse. Other: Additional ROS info: Except as noted in the above Review of Systems and in the History of Present Illness, all other systems have been reviewed and are negative or noncontributory. Physical Exam Vitals & Measurements HR: 96(Peripheral) RR: 16 BP: 120/66 HT: 154.9 cm HT: 154.9 cm WT: 54.9 kg WT: 54.9 kg BMI: 22.88 HEENT: normal conjunctiva, sclera clear, no scleral icterus, EOM intact, PERRLA, oral mucosa moist without lesions. Neck: trachea midline, no mass, symmetric, no thyromegaly or nodules, no adenopathy Respiratory: lungs CTA, respirations non labored. Cardiovascular: regular rate and rhythm, increased rate, no murmur, no pedal edema or varicosities. Gastrointestinal: soft, non distended, no tenderness, no masses, no palpable hernias, diastasis recti no, no hepatosplenomegaly; normal bs Lymphatic: no cervical adenopathy, Musculoskeletal: normal gait, digits and nails without infection, nodes, cyanosis, clubbing. kyphosis Skin: no rashes, no lesions, no ulcers, no subcutaneous nodules, induration. Psychiatric/Neuro: oriented to time, place, person, judgement normal, affect appropriate for age, insight intact, no focal deficits. Tests: labs reviewed,review of old records completed, Discussed surgical options, risks, and possible complications with patient. Assessment/Plan 1. Change in bowel habits (R19.4: Change in bowel habit) plan EGD and colonoscopy under anesthesia, informed consent obtained. 2. Iron deficiency anemia (D50.9: Iron deficiency anemia, unspecified) see # 1 3. GERD (gastroesophageal reflux disease) (K21.9: Gastro-esophageal reflux disease without esophagitis) see # 1 4. History of peptic ulcer disease (Z87.11: Personal history of peptic ulcer disease) see # 1 Follow-up No qualifying data available Problem List/Past Medical History Ongoing Abnormal liver function Asthma BMI 22.0-22.9, adult Change in bowel habits Chronic obstructive pulmonary disease Depression GERD (gastroesophageal reflux disease) History of peptic ulcer disease Hyperglycemia Hypothyroidism IBS (irritable bowel syndrome) Iron deficiency anemia Low back pain syndrome Nicotine addiction Osteoporosis PUD (peptic ulcer disease) Vitamin D deficiency Historical No qualifying data Procedure/Surgical History Cholecystectomy, Closed fracture of left little finger, History of - L cataract extraction, History of - R cataract extraction, Kyphoplasty of fracture of spine using fluoroscopic guidance. Medications albuterol HFA 90 mcg/inh MDI, 2 puff(s), Inhalation, QID, PRN amitriptyline 100 mg oral tablet, 100 mg= 1 tab(s), Oral, Once a day (at bedtime) ferrous sulfate 325 mg oral enteric coated tablet, 325 mg= 1 tab(s), Oral, BID levothyroxine 88 mcg (0.088 mg) Tab, 88 mcg= 1 tab(s), Oral, Daily omeprazole 20 mg Cap-D (more content not included)... [facility] Comment on above: Result Comment: Elec tronically Signed By: HERBERT CONKLIN, Joann Mittal\Date and Time Signed: 06/21/21 17:29 EDT Evaluation + Plan note Note Date & Type Note Facility Evaluation + Plan note No data available for this section [facility] [place] [facility] Discharge instructions Note Date & Type Note Facility Hospital Discharge instructions No data available for this section [facility] [place] Summary Purpose Family History No Family History Records FoundNo Family History Records Found Advance Directives No Advanced Directives Records FoundNo Advanced Directives Records Found Additional Source Comments INFORMATION SOURCE (unrecogn ized section and content) DATE CREATED AUTHOR 08/10/2021 [facility] DATE CREATED AUTHOR AUTHOR'S ORGANIZ ATION 04/23/2022 [facility]ORDS PERTAINING TO PATIENTS WHO ARE OR HAVE BEEN ENROLLED IN A CHEMICAL DEPENDENCY/SUBSTANCEABUSE PROGRAM, SOME INFORMATION MAY BE OMITTED. This clinical summary was aggregated from multiple sources. Caution should be exercised in using it in the provision of clinical care. This summary normalizes information from multiple sources, and as a consequence, information in this document may materially change the coding, format and clinical context of patient data. In addition, data may be omitted in some cases. CLINICAL DECISIONS SHOULD BE BASED ON THE PRIMARY CLINICAL RECORDS. [employer] [facility]. provides no warranty or guarantee of the accuracy or completeness of information in this document.
--- NOTE | 2023-06-17 09:21 | SWNOTE1 ---
SW was consulted in regards to inhaler and pt needs assistance with paying for it. Pt was not admitted to floor and SW did not see pt.
== END 2023-06-13 18:05 | disposition home or self-care (01) ==
LOC: ER 13:56 → SURGOUT 16:58
PROVIDERS: Emergency Provider Emergency Medicine Emergency Medical Services; PCP Family Medicine; Visit Provider Surgery
PROC: (CPT 731; principal; 2023-06-13 16:00)
DX: T18.128A Food in esophagus causing other injury, initial encounter (principal); W44.F3XA Food entering into or through a natural orifice, initial encounter; J44.9 Chronic obstructive pulmonary disease, unspecified; E03.9 Hypothyroidism, unspecified; Z90.49 Acquired absence of other specified parts of digestive tract; Z98.42 Cataract extraction status, left eye; Z98.41 Cataract extraction status, right eye; Z87.891 Personal history of nicotine dependence; K21.00 Gastro-esophageal reflux disease with esophagitis, without bleeding; K44.9 Diaphragmatic hernia without obstruction or gangrene
CPT/HCPCS: 43247; 36415; 80053; 85025; 93005; 96374; 99285; J1094; J1610; J2704

== ENCOUNTER 2023-10-05 06:44 | Outpatient (OUT) | payer OTHER, SELFPAY ==
--- OUTSIDE RECORDS SUMMARY | 2023-10-05 06:50 | XMS_ITS | CCD ---
Author Organization [facility] Care Team Providers Care Maxillofacial Surgeon Name Role Phone Sumanth Pearce Primary Care Physician RAMSES ., DR JULIO [...] Unavailable HOY ., DR JULIO Consulting Unavailable NILL, Joann R Attending Unavailable NILL, Joann Ferrera Attending Unavailable Allergies Allergy Classification Reported Allergen(s) Allergy Type Date of Onset Reaction(s) Facility Unclassified (1 source) No Known Medication Allergies; Translations: [No Known Medication Allergies] Propensity to adverse reactions (disorder) [facility] Medications Current Medications Medication Drug Class(es) Dates Sig (Normalized) Sig (Original) albuterol HFA 90 mcg/inh MDI (2 sources) Start: 06-19-2021 take 2 puff(s) by inhalation four times daily as needed for wheezing albuterol HFA 90 mcg/inh MDI 2 puff(s), Inhalation, QID as needed for wheezing, Refill(s) 0 Start Date: 06/19/21 Status: Ordered amitriptyline hydrochloride 100 mg oral tablet (2 sources) Tricyclic Antidepressant Start: 06-19-2021 amitriptyline 100 mg oral tablet 150 mg = 1.5 tab(s), Oral, Once a day (at bedtime), Refills(s) 0 Start Date: 06/19/21 Status: Ordered Start: 06-19-2021 take 1 tablet by alfie th once daily at bedtime amitriptyline 100 mg [...] Ordered levothyroxine sodium 0.088 mg oral tablet (2 sources) l-Thyroxine Start: 06-19-2021 take 1 tablet by mouth once daily levothyroxine 88 mcg (0.088 mg) Tab 88 mcg = 1 tab(s), Oral, Daily, Refills(s) 0 Start Date: 06/19/21 Status: Ordered Start: 06-19-2021 take 1 tablet by alfie th once daily levothyroxine 88 mcg (0.088 mg) Tab 88 mcg = 1 tab(s), Oral, Daily, Refills(s) 0 Start Date: 06/19/21 Status: Ordered omeprazole 20 mg Cap-DR (1 source) Start: 06-19-2021 take 1 capsule by mouth once daily omeprazole 20 mg Cap-DR 20 mg = 1 cap(s), Oral, Daily, Refills(s) 0 Start Date: 06/19/21 Status: Ordered pantoprazole 40 mg delayed release oral tablet (1 source) Proton Pump Inhibitor Start: 06-25-2023 take 1 tablet by mouth once daily Pantoprazole [address] Tab 40 mg = 1 tab(s), Oral, Daily, Refills(s) 0 Start Date: 06/25/23 Status: Ordered Symbicort 80/4.5 inhalation aerosol with adapter (1 source) Start: 06-19-2021 take 2 puff(s) by inhalation twice daily Symbicort 80/4.5 inhalation aerosol with adapter 2 puff(s), Inhalation, BID, Refill(s) 0 Start Date: 06/19/21 Status: Ordered Trelegy Ellipta (1 source) Start: 06-25-2023 take 1 puff(s) by inhalation once daily Trelegy Ellipta 1 puff, Inhalation, Daily, Refills(s) 0 Start Date: 06/25/23 Status: Ordered Vitamin D3 2000 intl units oral Tab (1 source) Start: 06-19-2021 take 1 tablet by mouth once daily Vitamin D3 2000 intl units oral Tab = 1 tab(s), Oral, Daily, tab(s), Refills(s) 0 Start Date: 06/19/21 Status: Ordered Problems Active Problems Problem Classification Problem Date Documented Da te Episodic/Chronic Asthma (2 sources) Asthma 06-19-2021 Chronic Chronic obstructive pulmonary disease and bronchiectasis (3 sources) Chronic obstructive lung disease; Translations: [Chronic obstructive pulmonary disease, unspecified] Onset: 2 06-19-2021 Chronic Deficiency and other anemia (3 sources) Iron deficiency anemia; Translations: [Iron deficiency anemia, unspecified] Onset: 2 Episodic Diabetes mellitus without complication (7 sources) Hyperglycemia; Translations: [Hyperglycemia, unspecified] Onset: 2 06-19-2021 Episodic Disorders of lipid metabolism (1 source) Hyperlipidemia, unspecified; Translations: [HYPERLIPIDEMIA UNSPECIFIED] Onset: 2 Chronic Diverticulosis and diverticulitis (5 sources) Diverticulosis of intestine, part unspecified, without perforation or abscess without bleeding; Translations: [Diverticulosis of large intestine without perforation or abscess without bleeding] Onset: 2 Chronic Esophageal disorders (4 sources) Gastroesophageal reflux disease without esophagitis; Translations: [Gastro-esophageal reflux disease without esophagitis] Onset: 2 Chronic Gastroduodenal ulcer (except hemorrhage) (2 sources) Peptic ulcer 06-19-2021 Chronic Gastroduodenal ulcer (except hemorrhage) (4 sources) H/O: peptic ulcer; Translations: [Personal history of peptic ulcer disease] Onset: 2 Episodic Menopausal disorders (4 sources) Other primary ovarian failure; Translations: [OTHER PRIMARY OVARIAN FAILURE] Onset: 3 Chronic Mood disorders (2 sources) Depressive disorder 06-19-2021 Chronic Nutritional deficiencies (3 sources) Vitamin D deficiency; Translations: [Vitamin D deficiency, unspecified] Onset: 2 06-19-2021 Chronic Osteoporosis (7 sources) Osteoporosis; Translations: [Age-related osteoporosis without current pathological fracture] Onset: 3 06-19-2021 Chronic Other gastrointestinal disorders (2 sources) Irritable bowel syndrome 06-19-2021 Chronic Other gastrointestinal disorders (1 source) Altered bowel function; Translations: [Change in bowel habit] Onset: 2 Episodic Other gastrointestinal disorders (2 sources) Alteration in bowel elimination 06-21-2021 Episodic Other liver diseases (2 sources) Abnormal liver function 06-19-2021 Chronic Spondylosis; intervertebral disc disorders; other back problems (2 sources) Low back pain 06-19-2021 Episodic Substance-related disorders (2 sources) Nicotine dependence 06-19-2021 Chronic Thyroid disorders (3 sources) Hypothyroidism; Translations: [Hypothyroidism, unspecified] Onset: 2 06-19-2021 Chronic Unclassified (2 sources) Body mass index 20-24 - normal 06-21-2021 Past or Other Problems Problem Classification Problem Date Documented Da te Episodic/Chronic Deficiency and other anemia (1 source) Anemia, unspecified; Translations: [ANEMIA UNSPECIFIED] Onset: 11-01-2021 Episodic Deficiency and other anemia (4 sources) Iron deficiency anemia, unspecified; Translations: [IRON DEFICIENCY ANEMIA UNSPECIFIED] Onset: 08-02-2021 Episodic Malaise and fatigue (1 source) Other [...] Test Name Value Interpretation Reference Range Facility General Surgery Office/Clini c Noteon 06-27-2023 General Surgery Office/Clinic Note Chief Complaint follow up EGD HPI Staff 12 day post operative follow up post EGD with reduction of food bolus. History of Present Illness 72 yo female with h/o COPD/asthma; GERD, hypothyroidism, s/p emergent EGD for upper esophageal food impaction; EGD with small hiatal hernia and esophageal inlet patch; patient placed on Protonix; denies GERD, no problems with swallowing; eating normally. Review of Systems PHQ Score Initial Depression Screen Score: 0 SCORE ROS - Provider Constitutional: no fever, no [...] been reviewed and are negative or noncontributory. Assessment/Plan 1. Food impaction of esophagus (T18.128A: Food in esophagus causing other injury, initial encounter) continue Protonix daily; chew food well; call with problems/questions. 2. Hiatal hernia with GERD (K44.9: Diaphragmatic hernia without obstruction or gangrene) see # 1 Food entering into or through a natural orifice, initial encounter (W44.F3XA: Food entering into or through a natural orifice, initial encounter) Gastro-esophageal reflux disease without esophagitis (K21.9: Gastro-esophageal reflux disease without esophagitis) Follow-up No qualifying data available Problem List/Past Medical History Ongoing Abnormal liver function Asthma BMI 22.0-22.9, adult Change in bowel habits Chronic obstructive pulmonary disease Depression Food impaction of esophagus GERD (gastroesophageal reflux disease) Hiatal hernia with GERD History of peptic ulcer disease Hyperglycemia Hypothyroidism IBS (irritable bowel syndrome) Iron deficiency anemia Low back pain syndrome Nicotine addiction Osteoporosis PUD (peptic ulcer disease) Vitamin D deficiency Historical No qualifying data Procedure/Surgical History EGD - esophagogastroduodenoscopy (06/13/2023), Colonoscopy (08/02/2021), EGD - esophagogastroduodenoscopy (08/02/2021), Cholecystectomy, Closed fracture of left little finger, History of - L cataract extraction, History of - R cataract extraction, Kyphoplasty of fracture of spine using fluoroscopic guidance. Medications albuterol HFA 90 mcg/inh MDI, 2 puff(s), Inhalation, QID, PRN amitriptyline 100 mg oral tablet, 150 mg= 1.5 tab(s), Oral, Once a day (at bedtime) levothyroxine 88 mcg (0.088 mg) Tab, 88 mcg= 1 tab(s), Oral, Daily Pantoprazole [address] Tab, 40 mg= 1 tab(s), Oral, Daily Trelegy Ellipta, 1 puff, Inhalation, Daily Vitamin D3 2000 intl units oral Tab, 1 tab(s), Oral, Daily Allergies No Known Allergies No Known Medication Allergies Social History Alcohol - Denies Alcohol Use, 06/21/2021 Substance Abuse - Denies Substance Abuse, 06/21/2021 Tobacco Former smoker, quit more than 30 days ago Tobacco Use:. Smokeless tobacco user within last 30 days Smokeless Tobacco Use:. Cigarettes, Vaping, Started age 19.0 Years. Stopped age 68 Years. Yes, 06/25/2023 Family History Cardiac arrest: Father. Diabetes mellitus type 2: Mother. Heart disease: Brother. Ovarian cancer: Mother. [facility] Comment on above: Result Comment: Elec tronically Signed By: JAS CONKLIN, Joann Ferrera\.br\Date and Time Signed: 06/27/23 14:41 EDT Formson 06-26-2023 Forms [id number] [facility] Ambulatory Visit Summaryon 0 06-25-2023 Ambulatory Visit Summary JESSICA KIRKPATRICK :1950 Visit Date:06/25/2023 Ambulatory Visit Instructions Your Care Team Attending Physician - JAS CONKLIN, Joann Ferrera Primary Care Physician - Sumanth Pearce MD This Is Your Medications List albuterol (albuterol HFA 90 mcg/inh MDI) amitriptyline (amitriptyline 100 mg oral tablet) cholecalciferol (Vitamin D3 2000 intl units oral Tab) fluticasone/umeclidinium/ashlyn nterol (Trelegy Ellipta) levothyroxine (levothyroxine 88 mcg (0.088 mg) Tab) pantoprazole (Pantoprazole [address] Tab) Procedures Performed EGD - esophagogastroduodenoscopy (06/13/2023), Colonoscopy (08/02/2021), EGD - esophagogastroduodenoscopy (08/02/2021), Cholecystectomy, Closed fracture of left little finger, History of - L cataract extraction, History of - R cataract extraction, Kyphoplasty of fracture of spine using fluoroscopic guidance. Medications What How Much When Instructions Unchanged albuterol (albuterol HFA 90 mcg/ inh MDI) 2 Puffs Inhalation 4 times a day as needed for as needed for wheezing Unchanged amitriptyline (amitriptyline 100 mg oral tablet) 1.5 Tablets By Mouth Once a day (at bedtime) Unchanged cholecalciferol (Vitamin D3 2000 intl units oral Tab) 1 Tablets By Mouth Every day Unchanged fluticasone/ umeclidinium/ vilanterol (Trelegy Ellipta) 1 puff Inhalation Every day Unchanged levothyroxine (levothyroxine 88 mcg (0.088 mg) Tab) 1 Tablets By Mouth Every day Unchanged pantoprazole (Pantoprazole [address] Tab) 1 Tablets By Mouth Every day Allergies No Known Allergies No Known Medication [...] PUD (peptic ulcer disease) Vitamin D deficiency Patient Survey You may receive a survey via text or e-mail asking about your office visit. Please share your experience with us by completing your survey. We appreciate your feedback and thank you for choosing us for your care. Normal [facility] Operative Reporton 4 Operative Report [id number] Normal [facility] CALCIUMon 04-23-2022 Calcium [Mass/Vol] 8.8 mg/dL Normal 8.5-10.1 [facility] Comment on above: Performed By: #### T 4, CMP, FT3, TSH, LIPID #### [facility] [address] [address] [address] Juan M Soria CREATININEon 04-23-2022 Creatinine [Mass/Vol] 0.77 mg/dL Normal 0.55-1.02 [facility] Comment on above: Performed By: #### T 4, CMP, FT3, TSH, LIPID #### [facility] [address] [address] [address] Juan M Soria EGFR-AF YEMENI >60 Normal >=60 [facility] Comment on above: Performed By: #### T 4, CMP, FT3, TSH, LIPID #### [facility] [address] [address] [address] Juan M Soria EGFR-NON AF YEMENI >60 Normal >=60 [facility] Comment on above: Performed By: #### T 4, CMP, FT3, TSH, LIPID #### [facility] [address] [address] [address] Juan M Soria XR DEXA BONE DENSITYon 04-17 XR DEXA BONE DENSITY EXAMINATION: XR DEXA BONE DENSITY, 04/17/2022 10:19 AM EST HISTORY: [...] YENY PEARCE Date: 2022-04-17 12:02 Normal [facility] CBC AUTO DIFFon 10-31-2021 BASO # 0.1 103/ul Normal 0.0-0.1 [facility] Comment on above: Performed By: #### C BC #### [facility] [address] [address] [address] Juan M Soria Basophils/100 WBC (Bld) 0.8 % Normal 0.2-2.0 [facility] Comment on above: Performed By: #### C BC #### [facility] [id number] Juan M Soria EO # 0.2 103/ul Normal 0.0-0.7 [facility] Comment on above: Performed By: #### C BC #### [facility] [address] [address] [address] Juan M Soria Eosinophils/100 WBC (Bld) 3.6 % Normal 0.9-7.0 [facility] Comment on above: Performed By: #### C BC #### [facility] [address] [place] [address] Dr. Juan M Soria Erythrocyte distribution width (RBC) [Ratio] 14.9 % Normal 11.0-15.0 [facility] Comment on above: Performed By: #### C BC #### [facility] [address] [place] [address] Dr. Juan M Soria Hematocrit (Bld) [Volume fraction] 39.7 % Normal 36.0-48.0 [facility] Comment on above: Performed By: #### C BC #### [facility] [address] [place] [address] Dr. Juan M Soria Hemoglobin (Bld) [Mass/Vol] 12.7 g/dL Normal 12.0-16.0 [facility] Comment on above: Performed By: #### C BC #### [facility] [address] [place] [address] Dr. Juan M Soria IG # 0.01 10e3/ul Normal 0.00-0.03 [facility] Comment on above: Performed By: #### C BC #### [facility] [address] [place] [address] Dr. Juan M Soria IG % 0.2 % Normal 0.0-0.5 [facility] Comment on above: Performed By: #### C BC #### [facility] [address] [place] [address] Dr. Juan M Soria LYMPH # 1.2 103/ul Normal 1.2-3.8 [facility] Comment on above: Performed By: #### C BC #### [facility] [address] [place] [address] Dr. Juan M Soria Lymphocytes/100 WBC (Bld) 19.8 % Critically low 20.5-60.0 [facility] Comment on above: Performed By: #### C BC #### [facility] [address] [place] [address] Dr. Juan M Soria MANUAL DIFF REQ NO Normal [facility] Comment on above: Performed By: #### C BC #### [facility] [address] [address] [address] Juan M Soria MCH (RBC) [Entitic mass] 27.0 pg Normal 26.7-34.0 [facility] Comment on above: Performed By: #### C BC #### [facility] [address] [place] [address] Dr. Juan M Soria MCHC (RBC) [Mass/Vol] 32.0 g/dL Normal 29.9-35.2 [facility] Comment on above: Performed By: #### C BC #### [facility] [address] [place] [address] Dr. Juan M Soria MCV (RBC) [Entitic vol] 84.3 fL Normal 81.0-99.0 [facility] Comment on above: Performed By: #### C BC #### [facility] [address] [place] [address] Dr. Juan M Soria MONO # 0.5 103/ul Normal 0.3-0.8 [facility] Comment on above: Performed By: #### C BC #### [facility] [address] [place] [address] Dr. Juan M Soria Monocytes/100 WBC (Bld) 8.1 % Normal 1.7-12.0 [facility] Comment on above: Performed By: #### C BC #### [facility] [address] [place] [address] Dr. Juan M Soria NEUT # 4.0 103/ul Normal 1.4-6.5 [facility] Comment on above: Performed By: #### C BC #### [facility] [address] [place] [address] Dr. Juan M Soria Neutrophils/100 WBC (Bld) 67.5 % Normal 43.0-75.0 [facility] Comment on above: Performed By: #### C BC #### [facility] [address] [place] [address] Dr. Juan M Soria Platelet mean volume (Bld) [Entitic vol] 9.3 fL Critically low 9.5-13.5 [facility] Comment on above: Performed By: #### C BC #### [facility] [address] [address] [address] Juan M Soria PLT 245 103/ul Normal 150-450 [facility] Comment on above: Performed By: #### C BC #### [facility] [address] [place] [address] Dr. Juan M Soria RBC 4.71 106/ul Normal 4.20-5.40 [facility] Comment on above: Performed By: #### C BC #### [facility] [address] [place] [address] Dr. Juan M Soria WBC 5.9 103/ul Normal 4.0-11.0 [facility] Comment on above: Performed By: #### C BC #### [facility] [address] [place] [address] Dr. Juan M Soria FERRITINon 10-31-2021 Ferritin [Mass/Vol] 47.0 ng/mL Normal 8.0-252.0 [facility] Comment on above: Performed By: #### T 4, CMP, FT3, TSH, LIPID #### [facility] [address] [place] [address] Dr. Juan M Soria IRONon 10-31-2021 Iron [Mass/Vol] 81.0 ug/dL Normal 50.0-170.0 [facility] Comment on above: Performed By: #### I CORINA, FERR #### [facility] [address] [place] [address] Dr. Juan M Soria XR COLONon 08-02-2021 XR COLON EXAMINATION: XR COLO N AIR CONTR., XR COLON HISTORY: Iron deficiency anemia COMPARISON: No relevant comparison available. FLUOROSCOPY TIME: Fluoro time measures 3.9 minutes and 22 images were obtained. TECHNIQUE: An air contrast barium enema examination was performed in the usual manner. No vp revenue cycle abdominal radiograph was performed. Standard level fluoroscopic mode of operation utilized. FINDINGS: COLON: Small diverticula scattered along the length of colon, most frequent involving the sigmoid colon. No mass, stricture, or appreciable mucosal irregularity. OTHER: Negative. IMPRESSION: 1. Long, redundant colon without appreciable mass, stricture, or suspicious findings. 2. Mild diverticulosis. Electronically authenticated by: YENY PEARCE Date: 2021-08-02 15:06 Normal [facility] OCC BLD IMMUNO SCREENon OCCULT BLOOD Negative Normal NEGATIVE [facility] Comment on above: Performed By: #### T 4, CMP, FT3, TSH, LIPID #### [facility] [address] [place] [address] Dr. Juan M Soria CBC AUTO DIFFon 06-13-2021 BASO # 0.0 103/ul Normal 0.0-0.1 [facility] Comment on above: Performed By: #### T 4, CMP, FT3, TSH, LIPID #### [facility] [address] [place] [address] Dr. Juan M Soria Basophils/100 WBC (Bld) 0.6 % Normal 0.2-2.0 [facility] Comment on above: Performed By: #### T 4, CMP, FT3, TSH, LIPID #### [facility] [address] [place] [address] Dr. Juan M Soria EO # 0.3 103/ul Normal 0.0-0.7 [facility] Comment on above: Performed By: #### T 4, CMP, FT3, TSH, LIPID #### [facility] [address] [place] [address] Dr. Juan M Soria Eosinophils/100 WBC (Bld) 3.8 % Normal 0.9-7.0 [facility] Comment on above: Performed By: #### T 4, CMP, FT3, TSH, LIPID #### [facility] [address] [place] [address] Dr. Juan M Soria Erythrocyte distribution width (RBC) [Ratio] 16.6 % Critically high 11.0-15.0 [facility] Comment on above: Performed By: #### T 4, CMP, FT3, TSH, LIPID #### [facility] [address] [place] [address] Dr. Juan M Soria Hematocrit (Bld) [Volume fraction] 30.7 % Critically low 36.0-48.0 [facility] Comment on above: Performed By: #### T 4, CMP, FT3, TSH, LIPID #### [facility] [address] [place] [address] Dr. Juan M Soria Hemoglobin (Bld) [Mass/Vol] 9.1 g/dL Critically low 12.0-16.0 [facility] Comment on above: Performed By: #### T 4, CMP, FT3, TSH, LIPID #### [facility] [address] [place] [address] Dr. Juan M Soria IG # 0.03 10e3/ul Normal 0.00-0.03 [facility] Comment on above: Performed By: #### T 4, CMP, FT3, TSH, LIPID #### [facility] [address] [place] [address] Dr. Juan M Soria IG % 0.5 % Normal 0.0-0.5 [facility] Comment on above: Performed By: #### T 4, CMP, FT3, TSH, LIPID #### [facility] [address] [place] [address] Dr. Juan M Soria LYMPH # 1.1 103/ul Critically low 1.2-3.8 [facility] Comment on above: Performed By: #### T 4, CMP, FT3, TSH, LIPID #### [facility] [address] [place] [address] Dr. Juan M Soria Lymphocytes/100 WBC (Bld) 16.8 % Critically low 20.5-60.0 [facility] Comment on above: Performed By: #### T 4, CMP, FT3, TSH, LIPID #### [facility] [address] [place] [address] Dr. Juan M Soria MANUAL DIFF REQ NO Normal [facility] Comment on above: Performed By: #### T 4, CMP, FT3, TSH, LIPID #### [facility] [address] [place] [address] Dr. Juan M Soria MCH (RBC) [Entitic mass] 22.4 pg Critically low 26.7-34.0 [facility] Comment on above: Performed By: #### T 4, CMP, FT3, TSH, LIPID #### [facility] [address] [place] [address] Dr. Juan M Soria MCHC (RBC) [Mass/Vol] 29.6 g/dL Critically low 29.9-35.2 [facility] Comment on above: Performed By: #### T 4, CMP, FT3, TSH, LIPID #### [facility] [address] [place] [address] Dr. Juan M Soria MCV (RBC) [Entitic vol] 75.4 fL Critically low 81.0-99.0 [facility] Comment on above: Performed By: #### T 4, CMP, FT3, TSH, LIPID #### [facility] [address] [place] [address] Dr. Juan M Soria MONO # 0.4 103/ul Normal 0.3-0.8 [facility] Comment on above: Performed By: #### T 4, CMP, FT3, TSH, LIPID #### [facility] [address] [place] [address] Dr. Juan M Soria Monocytes/100 WBC (Bld) 5.9 % Normal 1.7-12.0 [facility] Comment on above: Performed By: #### T 4, CMP, FT3, TSH, LIPID #### [facility] [address] [place] [address] Dr. Juan M Soria NEUT # 4.8 103/ul Normal 1.4-6.5 [facility] Comment on above: Performed By: #### T 4, CMP, FT3, TSH, LIPID #### [facility] [address] [place] [address] Dr. Juan M Soria Neutrophils/100 WBC (Bld) 72.4 % Normal 43.0-75.0 [facility] Comment on above: Performed By: #### T 4, CMP, FT3, TSH, LIPID #### [facility] [address] [place] [address] Dr. Juan M Soria Platelet mean volume (Bld) [Entitic vol] 9.1 fL Critically low 9.5-13.5 [facility] Comment on above: Performed By: #### T 4, CMP, FT3, TSH, LIPID #### [facility] [address] [place] [address] Dr. Juan M Soria PLT 289 103/ul Normal 150-450 [facility] Comment on above: Performed By: #### T 4, CMP, FT3, TSH, LIPID #### [facility] [address] [place] [address] Dr. Juan M Soria RBC 4.07 106/ul Critically low 4.20-5.40 [facility] Comment on above: Performed By: #### T 4, CMP, FT3, TSH, LIPID #### [facility] [address] [place] [address] Dr. Juan M Soria WBC 6.7 103/ul Normal 4.0-11.0 [facility] Comment on above: Performed By: #### T 4, CMP, FT3, TSH, LIPID #### [facility] [address] [place] [address] Dr. Juan M Soria FREE T3on 06-13-2021 FREE T3 2.54 pg/mlL Normal 2.18-3.98 [facility] Comment on above: Performed By: #### T 4, CMP, FT3, TSH, LIPID #### [facility] [address] [place] [address] Dr. Juan M Soria GLYCOHEMOGLOBIN A1Con 2021 ADA RECOMMENDATION SEE BELOW Normal [facility] Comment on above: Result Comment: ADA RECOMMENDED LIMIT 4.0 - 6.0 ADA THERAPEUTIC TARGET < 7.0 ACTION SUGGESTED > 7.0 Performed By: #### T 4, CMP, FT3, TSH, LIPID #### [facility] [address] [place] [address] Dr. Juan M Soria Glucose [Mass/Vol] 123 mg/dL Normal [facility] Comment on above: Performed By: #### T 4, CMP, FT3, TSH, LIPID #### [facility] [address] [place] [address] Dr. Juan M Soria HbA1c (Bld) [Mass fraction] 5.9 % Normal 4.5-6.2 [facility] Comment on above: Performed By: #### T 4, CMP, FT3, TSH, LIPID #### [facility] [address] [address] [address] Juan M Soria LIPID PROFILEon 06-13-2021 CHOL-HDL RATIO NORM SEE BELOW Normal [facility] Comment on above: Result Comment: 3.3 - 4.4 LOW RISK 4.4 - 7.1 AVERAGE RISK 7.1 - 11.0 MODERATE RISK >11.0 HIGH RISK Performed By: #### T 4, CMP, FT3, TSH, LIPID #### [facility] [address] [address] [address] Juan M Soria Cholesterol [Mass/Vol] 249 mg/dL Critically high <=200 [facility] Comment on above: Performed By: #### T 4, CMP, FT3, TSH, LIPID #### [facility] [address] [address] [address] Juan M Soria Cholesterol in HDL [Mass/Vol] 132 mg/dL Critically high 40-60 [facility] Comment on above: Performed By: #### T 4, CMP, FT3, TSH, LIPID #### [facility] [address] [address] [address] Juan M Soria Cholesterol in LDL [Mass/Vol] 108.4 mg/dL Normal [facility] Comment on above: Performed By: #### T 4, CMP, FT3, TSH, LIPID #### [facility] [address] [address] [address] Juan M Soria Cholesterol.total/ Cholesterol in HDL [Mass ratio] 1.9 {ratio} Normal [facility] Comment on above: Performed By: #### T 4, CMP, FT3, TSH, LIPID #### [facility] [address] [address] [address] Juan M Soria HDL NORMAL > or = 60 mg/dl - LO W CARDIOVASCULAR RISK <40 mg/dl - HIGH CARDIOVASCULAR RISK Normal [facility] Comment on above: Performed By: #### T 4, CMP, FT3, TSH, LIPID #### [facility] [address] [place] [address] Dr. Juan M Soria LDL CALC NORMAL SEE BELOW Normal [facility] Comment on above: Result Comment: <100 mg/dl OPTIMAL 100 - 129 mg/dl NEAR OR ABOVE OPTIMAL 130 - 159 mg/dl BORDERLINE HIGH 160 - 189 mg/dl HIGH >190 mg/dl VERY HIGH Performed By: #### T 4, CMP, FT3, TSH, LIPID #### [facility] [address] [place] [address] Dr. Juan M Soria Triglyceride [Mass/Vol] 43 mg/dL Normal <=150 [facility] Comment on above: Performed By: #### T 4, CMP, FT3, TSH, LIPID #### [facility] [address] [address] [address] Juan M Soria VLDL CALC 8.6 mg/dL Normal [facility] Comment on above: Performed By: #### T 4, CMP, FT3, TSH, LIPID #### [facility] [address] [place] [address] Dr. Juan M Soria PROF 14(COMP METB)on 022 Albumin [Mass/Vol] 3.6 g/dL Normal 3.4-5.0 [facility] Comment on above: Performed By: #### T 4, CMP, FT3, TSH, LIPID #### [facility] [address] [place] [address] Dr. Juan M Soria Albumin/Globulin [Mass ratio] 0.9 {ratio} Normal [facility] Comment on above: Performed By: #### T 4, CMP, FT3, TSH, LIPID #### [facility] [address] [place] [address] Dr. Juan M Soria ALP [Catalytic activity/Vol] 106 U/L Normal 46-116 [facility] Comment on above: Performed By: #### T 4, CMP, FT3, TSH, LIPID #### [facility] [address] [place] [address] Dr. Juan M Soria ALT [Catalytic activity/Vol] 24 U/L Normal 14-59 [facility] Comment on above: Performed By: #### T 4, CMP, FT3, TSH, LIPID #### [facility] [address] [place] [address] Dr. Juan M Soria Anion gap [Moles/Vol] 10.9 mmol/L Normal [facility] Comment on above: Performed By: #### T 4, CMP, FT3, TSH, LIPID #### [facility] [address] [place] [address] Dr. Juan M Soria AST [Catalytic activity/Vol] 18 U/L Normal 15-37 [facility] Comment on above: Performed By: #### T 4, CMP, FT3, TSH, LIPID #### [facility] [address] [place] [address] Dr. Juan M Soria Bilirubin [Mass/Vol] 0.2 mg/dL Normal 0.2-1.0 [facility] Comment on above: Performed By: #### T 4, CMP, FT3, TSH, LIPID #### [facility] [address] [place] [address] Dr. Juan M Soria Calcium [Mass/Vol] 8.7 mg/dL Normal 8.5-10.1 [facility] Comment on above: Performed By: #### T 4, CMP, FT3, TSH, LIPID #### [facility] [address] [place] [address] Dr. Juan M Soria Chloride [Moles/Vol] 101 mmol/L Normal 98-107 [facility] Comment on above: Performed By: #### T 4, CMP, FT3, TSH, LIPID #### [facility] [address] [place] [address] Dr. Juan M Soria CO2 [Moles/Vol] 25.9 mmol/L Normal 21.0-32.0 [facility] Comment on above: Performed By: #### T 4, CMP, FT3, TSH, LIPID #### [facility] [address] [place] [address] Dr. Juan M Sorai Creatinine [Mass/Vol] 0.83 mg/dL Normal 0.55-1.02 [facility] Comment on above: Performed By: #### T 4, CMP, FT3, TSH, LIPID #### [facility] [address] [place] [address] Dr. Juan M Soria EGFR-AF YEMENI >60 Normal >=60 [facility] Comment on above: Performed By: #### T 4, CMP, FT3, TSH, LIPID #### [facility] [address] [place] [address] Dr. Juan M Soria EGFR-NON AF YEMENI >60 Normal >=60 [facility] Comment on above: Performed By: #### T 4, CMP, FT3, TSH, LIPID #### [facility] [address] [place] [address] Dr. Juan M Soria Globulin (S) [Mass/Vol] 4.2 g/dL Normal [facility] Comment on above: Performed By: #### T 4, CMP, FT3, TSH, LIPID #### [facility] [address] [place] [address] Dr. Juan M Soria Glucose [Mass/Vol] 92 mg/dL Normal 74-106 [facility] Comment on above: Performed By: #### T 4, CMP, FT3, TSH, LIPID #### [facility] [address] [place] [address] Dr. Juan M Soria Potassium [Moles/Vol] 3.8 mmol/L Normal 3.5-5.1 [facility] Comment on above: Performed By: #### T 4, CMP, FT3, TSH, LIPID #### [facility] [address] [place] [address] Dr. Juan M Soria Protein [Mass/Vol] 7.8 g/dL Normal 6.1-8.2 [facility] Comment on above: Performed By: #### T 4, CMP, FT3, TSH, LIPID #### [facility] [address] [place] [address] Dr. Juan M Soria Sodium [Moles/Vol] 134 mmol/L Critically low 136-145 [facility] Comment on above: Performed By: #### T 4, CMP, FT3, TSH, LIPID #### [facility] [address] [place] [address] Dr. Juan M Soria Urea nitrogen [Mass/Vol] 10.0 mg/dL Normal 7.0-18.0 [facility] Comment on above: Performed By: #### T 4, CMP, FT3, TSH, LIPID #### [facility] [address] [place] [address] Dr. Juan M Soria Urea nitrogen/Creatinin e [Mass ratio] 12.0 mg/mg Normal [facility] Comment on above: Performed By: #### T 4, CMP, FT3, TSH, LIPID #### [facility] [address] [place] [address] Dr. Juan M Soria T4on 06-13-2021 T4 [Mass/Vol] 10.10 ug/dL Normal 4.80-13.90 [facility] Comment on above: Performed By: #### T 4, CMP, FT3, TSH, LIPID #### [facility] [address] [place] [address] Dr. Juan M Soria TSHon 06-13-2021 TSH Qn m[IU]/L Critically low 0.470-4.680 [facility] Comment on above: Performed By: #### T 4, CMP, FT3, TSH, LIPID #### [facility] [address] [place] [address] Dr. Juan M Soria TSH RANGE SEE BELOW Normal [facility] Comment on above: Result Comment: <0.3 4 UIU/ml HYPERTHYROID 0.34-5.60 UIU/ml EUTHYROID >5.60 UIU/ml HYPOTHYROID Performed By: #### T 4, CMP, FT3, TSH, LIPID #### [facility] [address] [place] [address] Dr. Juan M Soria VITAMIN D 25 OHon 06-13-2021 VIT D 25-OH 42.1 ng/mL Normal [facility] Comment on above: Performed By: #### T 4, CMP, FT3, TSH, LIPID #### [facility] [address] [place] [address] Dr. Juan M Soria VIT D RANGES SEE BELOW Normal [facility] Comment on above: Result Comment: <20 ng/mL Vit D deficient 20 - <30 ng/mL Vit D insufficient 30 - 100 ng/mL Vit D sufficient >100 ng/mL Potential Toxicity Performed By: #### T 4, CMP, FT3, TSH, LIPID #### [facility] [address] [address] [address] Juan M Soria Vital Signs Date Time Vital Sign Value Performing Clinician Amy swanson 06-21-2021 15:25-0400 Blood Pressure Location Joann JAMAICAL [facility] 06-21-2021 15:25-0400 Diastolic blood pressure 66 mm[Hg] Joann JAMAICAL [facility] [place] 06-21-2021 15:25-0400 Heart rate 96 /min Joann NILL [facility] 06-21-2021 15:25-0400 Respiratory rate 16 /min Joann BERUMENL [facility] [place] 06-21-2021 15:25-0400 Systolic blood pressure 120 mm[Hg] Joann NILL [facility] [email or web address] Encounters Encounter Date Encounter Type Care Provider Facility Start: 06-25-2023 End: 06-25-2023 ambulatory Joann MARK Facility:[facility] Start: 06-25-2023 End: 06-25-2023 Patient encounter procedure Joann MARK [facility] [place] Start: 06-12-2023 End: 06-12-2023 ambulatory Joann MARK Facility:CD:[id number] Start: 04-23-2022 End: 04-23-[address] SUMANTH PEARCE . Facility:[facility] Start: 04-17-2022 End: 04-18-[address] SUMANTH PEARCE . Facility:[facility] Start: 10-31-2021 End: 11-01-[address] SUMANTH PEARCE . Facility:[facility] Start: 08-02-2021 End: 08-02-[address] JOANN MARK . Facility: Start: 06-21-2021 End: 06-21-2021 Patient encounter procedure Joann MARK [facility] Start: 06-15-2021 End: 06-15-[address] SUMANTH PEARCE . Facility:[facility] Start: 06-13-2021 End: 06-14-[address] SUMANTH PEARCE . Facility: Procedures Date Procedure Procedure Detail Performing Clinician Start: 06-13-2023 Esophagogastroduodenoscopy Joann MARK Start: 08-02-2021 Colonoscopy Joann MARK Start: 08-02-2021 Esophagogastroduodenoscopy Joann MARK Cholecystectomy Joann MARK Closed fracture of p halanx of left little finger (disorder) Joann BERUMENL H/O: L cataract extraction M cinthia NILL H/O: R cataract extraction M ichmaribel NILL Kyphoplasty of fract ure of spine using fluoroscopic guidance Joann MARK Payers Date Payer Category Payer Medicare [id number] 2023 Medicare [id number] 1959 Medicare [id number] 1959 Unknown [id number] 1950 Unknown [id number] 2.16.84 [id number] 1950 Unknown [id number] 2.16.84 [id number] 1950 Unknown [id number] 2.16.84 [id number] 1950 Unknown [id number] 2.16.84 [id number] 1950 Unknown [id number] 2.16.84 [id number] 1950 Unknown [id number] 2.16.84 [id number] 1950 Unknown [id number] 2.16.8 [id number] 1950 Unknown [id number] 2.16.8 [id number] Social History Date Type Detail Facility Start: 06-21-2021 End: 06-25-2023 Tobacco smoking status Ex-smoker (finding) [facility] [place] Tobacco smoking status Smokeless tobacco user within last 30 days [facility] [place] Sex Assigned At Female [facility] [place] Functional Status Date Assessment Result Facility 06-25-2023 Functional Status N/A [facility] History and physical note 06-14-2023 Note Date & Type Note Facility 06-14-2023 Note [id number] #1.00TIFF [facility] Clinical Note 08-02-2021 Note Date & Type [...] be determined by barium enema results. CC: Smuanth Pearce M.D. [facility] Signed and Approved by: DR JOANN MARK . 08/03/2021 14:01:00 [facility] Evaluation + Plan note Note Date & Type Note Facility Evaluation + Plan note No data available for this section [facility] [place] [facility] Discharge instructions Note Date & Type Note Facility Hospital Discharge instructions No data available for this section [facility] [place] Progress note Note Date & Type Note Facility Progress note No data available for this section [facility] [place] Summary Purpose Family History No Family History Records Found No data available for this section No Family History Records Found Advance Directives No Advanced Directives Records FoundNo Advanced Directives Records Found Additional Source Comments INFORMATION SOURCE (unrecogn ized section and content) DATE CREATED AUTHOR 04/23/2022 [facility] DATE CREATED AUTHOR AUTHOR'S ORGANIZ ATION 08/03/2023 Darvin Castanon [facility] Patient Care team informatio n (unrecognized section and content) Personnel Name: Sumanth Pearce MD Address: Address: [address] [place] [address] FOR RECORDS PERTAINING TO PATIENTS WHO ARE [...] BE BASED ON THE PRIMARY CLINICAL RECORDS. [facility] [employer] provides no warranty or guarantee of the accuracy or completeness of information in this document.
[2023-10-05 08:01] LABS: Estimated Average Glucose 108 mg/dL; Glycohemoglobin A1C 5.4 % (4.5-6.2)
[2023-10-05 08:38] LABS: Alanine Aminotransferase 24 U/L (14-59); Albumin Globulin Ratio 1.1; Albumin Level 3.6 g/dL (3.4-5.0); Alkaline Phosphatase 79 U/L (46-116); Anion Gap 13.1; Aspartate Amino Transferase 19 U/L (15-37); BUN Creatinine Ratio 14.8; Basophils Absolute Auto 0.1 10^3/uL (0.0-0.1); Basophils Percent Auto 1.1 % (0.2-2.0); Bilirubin Total 0.3 mg/dL (0.2-1.0); Calcium 9.3 mg/dL (8.5-10.1); Carbon Dioxide 28.9 mmol/L (21.0-32.0); Chloride 102 mmol/L (98-107); Chol HDL Ratio 2.5; Cholesterol 257 mg/dL (<=200); Eosinophils Absolute Auto 0.8 10^3/uL (0.0-0.7); Eosinophils Percent Auto 11.7 % (0.9-7.0); Estimated GFR (African America >60 (>=60); Estimated GFR (Non-African Ame >60 (>=60); Free T3 2.39 pg/mL (2.18-3.98); Globulin 3.3 g/dL; Glucose 90 mg/dL (74-106); HDL Cholesterol 104 mg/dL (40-60); Hematocrit 39.4 % (36.0-48.0); Hemoglobin 12.4 g/dL (12.0-16.0); Immature Granulocytes Abs Auto 0.03 10^3/uL (0.00-0.03); Immature Granulocytes Pct Auto 0.4 % (0.0-0.5); Lymphocytes Absolute Auto 1.2 10^3/uL (1.2-3.8); Lymphocytes Percent Auto 16.7 % (20.5-60.0); Mean Corpuscular HGB Conc 31.5 g/dL (29.9-35.2); Mean Corpuscular Hemoglobin 26.7 pg (26.7-34.0); Mean Corpuscular Volume 84.9 fL (81.0-99.0); Mean Platelet Volume 9.5 fL (9.5-13.5); Monocytes Absolute Auto 0.8 10^3/uL (0.3-0.8); Monocytes Percent Auto 10.6 % (1.7-12.0); Neutrophils Absolute Auto 4.3 10^3/uL (1.4-6.5); Neutrophils Percent Auto 59.5 % (43.0-75.0); Platelet Count 290 10^3/uL (150-450); Red Blood Count 4.64 10^6/uL (4.20-5.40); Red Cell Distribution Width 15.7 % (11.0-15.0); Sodium 140 mmol/L (136-145); Total Protein 6.9 g/dL (6.4-8.2); Triglycerides 114 mg/dL (<=150); VLDL CHOLESTEROL 22.8 mg/dL; White Blood Count 7.2 10^3/uL (4.0-11.0)
[2023-10-05 08:44] LABS: Thyroid Stimulating Hormone 0.007 uIU/mL (0.358-3.740)
== END 2023-10-05 06:45 | disposition home or self-care (01) ==
LOC: LAB 06:49
PROVIDERS: PCP Family Medicine; Visit Provider Family Medicine
DX: K21.9 Gastro-esophageal reflux disease without esophagitis (principal); J45.909 Unspecified asthma, uncomplicated; J44.9 Chronic obstructive pulmonary disease, unspecified; E03.9 Hypothyroidism, unspecified; R03.0 Elevated blood-pressure reading, without diagnosis of hypertension; R42 Dizziness and giddiness; E78.5 Hyperlipidemia, unspecified; R73.09 Other abnormal glucose; D64.9 Anemia, unspecified
CPT/HCPCS: 36415; 80053; 80061; 83036; 83540; 84436; 84443; 84481; 85025

== ENCOUNTER 2023-10-16 12:57 | Outpatient (OUT) | payer OTHER, SELFPAY ==
--- NOTE | 2023-10-16 13:04 | MM_ITS ---
Patient Name: JESSICA KIRKPATRICK MR#: [id number] : 1950 Exam Date: 10/16/2023 Ordering Doctor: DR Masoud Taylor . RADIOLOGY REPORT PROCEDURE: MM TOMOSYNTHESIS SCREENING BI COMPARISON: MG MAMM SCREEN KARTHIK W CAD, 06/11/2016. MG MAMM LT UNI W CAD DIG, 07/07/2013. MG STEREO CORE NDL W CLIP LT, 01/21/2013. MG MAMM KARTHIK SCRN W CAD DIG, 01/05/2013. INDICATIONS: Screening for malignant neoplasm Calculator Name NCI Breast Cancer Risk Assessment Tool 5 Year Breast Cancer Risk 2.40% Lifetime Breast Cancer Risk 6.10% Personal Breast Cancer No Personal Ovarian Cancer No Treatments None Family Cancers Mother with ovarian cancer at age 44. LOCATION: [facility] BREAST COMPOSITION: The breasts are heterogeneously dense,which may obscure small masses. FINDINGS: DIAGNOSTIC CATEGORY 2--BENIGN FINDING: RIGHT BREAST: No significant suspicious finding. Scattered benign-appearing calcifications are present. No significant change has occurred. LEFT BREAST: No significant suspicious finding. Scattered benign-appearing calcifications are present. No significant change has occurred. Stable biopsy marker clip. RECOMMENDATIONS: ROUTINE MAMMOGRAM AND CLINICAL EVALUATION IN 12 MONTHS. PLEASE NOTE: A NORMAL MAMMOGRAM DOES NOT EXCLUDE THE POSSIBILITY OF BREAST CANCER. A CLINICALLY SUSPICIOUS PALPABLE LUMP SHOULD BE BIOPSIED. Dictated by: Duy Bhatt M.D. on 10/18/2023 at 13:41 Approved by: Duy Bhatt M.D. on 10/18/2023 at 13:46
== END 2023-10-16 12:58 | disposition home or self-care (01) ==
LOC: MAMMO 12:57
PROVIDERS: PCP Family Medicine; Visit Provider Family Medicine
DX: Z12.31 Encounter for screening mammogram for malignant neoplasm of breast (principal); Z80.41 Family history of malignant neoplasm of ovary
CPT/HCPCS: 77063; 77067

== ENCOUNTER 2024-02-17 13:31 | Inpatient (IN) | payer MEDICARE, SELFPAY ==
[2024-02-17] VITALS (11 sets, daily range): BP systolic 113–129; BP diastolic 57–70; PULSE 110–123; TEMP 35.7–37.1; O2SAT 86–96; BMI 20.1; BMI 20.2
--- NOTE | 2024-02-17 13:36 | ECG_ITS ---
The [facility] Test Date: 2024-02-17 Pat Name: JESSICA KIRKPATRICK Department: Room: - Gender: Female [employer] Operator: : 1950 Requested By: [id number] Order Number: [id number] Reading MD: SUMANTH PEARCE Measurements Intervals [place] Rate: 120 P: 75 MT: 142 QRS: 56 QRSD: 82 T: 194 QT: 292 QTc: 363 Interpretive Statements 1120 Sinus tachycardia [address] depression 9150 abnormal ECG Compared to ECG 06/13/2023 13:22:32 ST (T wave) deviation now present Possible ischemia now present Electronically Signed On 02-19-2024 6:11:21 EST by SUMANTH PEARCE
--- NOTE | 2024-02-17 13:36 | CT_ITS ---
The [address] [address] Patient Name: JESSICA KIRKPATRICK MRN: [id number] date: 1950 Sex: F Assigned Patient Location: ER Current Patient Location: ER Accession/Order Number: [id number] Exam Date: 02/17/2024 14:31 Report Date: 02/17/2024 15:11 At the request of: FAWAD HERNÁNDEZ Procedure: CT cervical spine wo con CT CERVICAL SPINE WITHOUT IV CONTRAST. CLINICAL HISTORY: fall, weakness COMPARISON: There are no prior studies available for comparison. TECHNIQUE: CT of the cervical spine without contrast. Orthogonal sagittal and coronal multiplanar reformatted images were created. . FINDINGS: BONY ALIGNMENT: There is normal cervical lordosis. No spondylolisthesis. VERTEBRAL BODY: No acute fracture of the cervical spine. Intervertebral disc spaces are intact. CENTRAL CANAL/NEURAL FORAMINA: No high-grade central canal or neuroforaminal stenosis. SOFT TISSUE: There is thickening of the proximal esophagus.. UPPER LUNGS: No acute findings. CT/CT cervical spine wo con IMPRESSION: No acute cervical spinal fracture. Thickening of the proximal esophagus. Correlate for esophagitis. Electronically authenticated by: LINNETTE VALLEJO Date: 02/17/2024 15:11
--- NOTE | 2024-02-17 13:36 | CT_ITS ---
The [address] [address] Patient Name: JESSICA KIRKPATRICK MRN: [id number] date: 1950 Sex: F Assigned Patient Location: ER Current Patient Location: ER Accession/Order Number: [id number] Exam Date: 02/17/2024 14:31 Report Date: 02/17/2024 15:09 At the request of: FAWAD HERNÁNDEZ Procedure: CT head/brain wo con CT HEAD WITHOUT CONTRAST. CLINICAL HISTORY: weakness, fall COMPARISON: None available for comparison TECHNIQUE: Axial CT head images from the skull base to the vertex without IV contrast were acquired. Coronal and sagittal reformats were also obtained. FINDINGS: EXTRA-AXIAL SPACE: Age-appropriate ventricles. No acute extra-axial collection. No extra-axial mass. No midline shift. CEREBRUM: There are areas of periventricular and deep white matter low-attenuation, which is nonspecific but likely reflective of chronic microvascular ischemic disease.. There are bilateral basal ganglia calcifications. No CT evidence of acute large territorial cortical infarct, hemorrhage or mass effect. CEREBELLUM: No focal abnormality. No CT evidence of acute infarct, hemorrhage or mass effect. BRAINSTEM: No focal abnormality. No CT evidence of acute infarct, hemorrhage or mass effect. EXTRACRANIAL STRUCTURES. There is mild fluid in the right maxillary sinus. Mastoid air cells are clear. Orbits are unremarkable. No discrete pituitary mass. Intact calvarium. CT/CT head/brain wo con IMPRESSION: No acute intracranial abnormality. Electronically authenticated by: LINNETTE VLALEJO Date: 02/17/2024 15:09
--- NOTE | 2024-02-17 13:39 | ED_ITS ---
HPI HPI - General Adult General Chief complaint: Fall Stated complaint: fall Time Seen by Provider: 02/17/24 13:36 History of Present Illness HPI narrative: Patient is a 73-year-old female brought to the emergency department by ambulance after EMS found her down in her home, potentially laying on the floor for the last 5 days. Her sister called 911 for a welfare check as she had not heard from the patient. Patient is awake and alert, she denies any areas of pain or injury. She states she falls frequently. She remembers watching the ball drop on TV for [place] so EMS believes that she had been on the floor for 5 days. She is noted to have bruising in various stages of healing over her left shoulder, back. She denies any areas of pain at this time. She denies any recent illness. She is not anticoagulated. She told EMS that she did hit her head but does not remember the events of the injury, EMS found a lamp on top of her and they believe that she pulled the lamp down when she fell. Related Data Home Medications ?Medication ?Instructions ?Recorded ?Confirmed albuterol sulfate 90 mcg/actuation 2 inh inhalation Q4H PRN shortness 06/13/23 06/13/23 aerosol inhaler of breath or wheezing amitriptyline 150 mg tablet 150 mg PO .qhs depression 06/13/23 06/13/23 levothyroxine 88 mcg tablet 88 mcg PO QAM hypothyroidism 06/13/23 06/13/23 Previous Rx's ?Medication ?Instructions ?Recorded pantoprazole 40 mg tablet,delayed 40 mg PO DAILY 6 weeks #42 tabs 06/13/23 release (Protonix) Allergies Allergy/AdvReac Type Severity Reaction Status Date / Time No Known Drug Allergies Allergy Verified 06/13/23 12:45 Opioid HPI Opioid Management Most Recent Opioid Data: Last ORT Total Score 1 06/13/23 14:50 06/13/23 Last ORT Risk Category Low Risk 06/13/23 14:50 06/13/23 Review of Systems ROS Constitutional Denies: fever or chills Ears, nose, mouth, and throat Denies: throat pain or nasal congestion Cardiovascular Denies: chest pain Respiratory Denies: shortness of breath Gastrointestinal Denies: nausea or vomiting Integumentary/Breast Denies: rash Neurological Denies: numbness in extremities or weakness in extremities Hematologic/Lymphatic Denies: easy bruising or easy bleeding PFSH PFSH Medical History (Updated 02/17/24 @ 15:55 by MISHA Zimmer) COPD (chronic obstructive pulmonary disease) ?J44.9 - Chronic obstructive pulmonary disease, unspecified (ICD-10) Macular degeneration of both eyes ?H35.30 - Unspecified macular degeneration (ICD-10) Depression ?F32.A - Depression, unspecified (ICD-10) Hypothyroidism ?E03.9 - Hypothyroidism, unspecified (ICD-10) Surgical History (Updated 06/13/23 @ 15:48 by dAele Mitchell) History of esophagogastroduodenoscopy (EGD) ?Z98.890 - Other specified postprocedural states (ICD-10) History of colonoscopy ?Z98.890 - Other specified postprocedural states (ICD-10) History of bilateral cataract extraction ?Z98.41 - Cataract extraction status, right eye (ICD-10) ?Z98.42 - Cataract extraction status, left eye (ICD-10) Hx of cholecystectomy ?Z90.49 - Acquired absence of other specified parts of digestive tract (ICD- 10) Family History (Updated 06/13/23 @ 15:42 by Adele Mitchell) Father Alzheimer disease Other Family history of cancer Family history of diabetes mellitus Social History Within the past year, how often did you have a drink containing alcohol: never Score interpretation: A score less than 3 is consistent with normal alcohol consumption. Smoking status: Former smoker Non-prescribed substance use: denies use Highest level of school completed/degree received: Associate degree: occupational, technical, vocational program Little interest or pleasure in doing things: not at all Feeling down, depressed, or hopeless: not at all Gender Identity: female Exam Narrative Exam Narrative: Gen.: Awake, alert, in no distress, shivering Head: Normocephalic, atraumatic ENT: Moist mucous membranes Respiratory: No respiratory distress, lungs clear bilaterally; posterior chest wall with ecchymosis, nontender Cardio: Tachycardic Gastrointestinal: Abdomen is soft, nondistended and nontender to palpation Back: No bony tenderness of the T-spine or L-spine Extremities: Moves extremities equally, ecchymosis noted to the left shoulder posteriorly at the glenohumeral joint, nontender. Pelvis is stable Psych: Normal mood and affect Neuro: No focal neuro deficit Skin: Warm, dry, intact Constitutional Vital Signs, click to edit/add: Last Vital Signs Temp 98.2 F 02/17/24 14:50 Pulse 111 H 02/17/24 14:50 Resp 20 02/17/24 14:50 BP 119/57 02/17/24 13:34 Pulse Ox 96 02/17/24 15:05 O2 Del Method Nasal Cannula 02/17/24 15:05 O2 Flow Rate 2 02/17/24 15:05 Course Vital Signs Vital signs: Vital Signs Temperature 96.2 F L 02/17/24 13:34 Pulse Rate 120 H 02/17/24 13:34 Respiratory Rate 24 H 02/17/24 13:34 Blood Pressure 119/57 02/17/24 13:34 Pulse Oximetry 86 L 02/17/24 13:34 Oxygen Delivery Method Room Air 02/17/24 13:34 Temperature 98.2 F 02/17/24 14:50 Pulse Rate 111 H 02/17/24 14:50 Respiratory Rate 20 02/17/24 14:50 Blood Pressure 119/57 02/17/24 13:34 Pulse Oximetry 96 02/17/24 15:05 Oxygen Delivery Method Nasal Cannula 02/17/24 15:05 Oxygen Delivery Flow Rate 2 02/17/24 15:05 Medical Decision Making MDM Narrative Medical decision making narrative: Patient was sent for CTs of the head, C-spine, chest/abdomen/pelvis. These were done without contrast as the patient's creatinine is too high to allow for IV contrast injection. She was also noted to be hypothermic with an initial rectal temperature of 96.2 Fahrenheit. She was given warm blankets and placed on a Aric hugger with improvement. Laboratory studies including blood cultures were obtained showing the patient has significant leukocytosis, mild anemia, hypernatremia, acute kidney injury. Straight catheter was performed for urine specimen, however CT shows the patient still has urinary bladder distention so Alberts catheter was placed. She was given IV Zosyn for antibiotic coverage as CT of the chest shows she has multiple small areas of infiltrate consistent with groundglass opacities. She remains tachycardic, borderline hypoxic on room air, however due to her hypothermia we had difficulty obtaining a good waveform. She was placed on nasal cannula with improvement and after warming, she is more comfortable and awake. She remains alert with no altered mental status in the ER. She will be admitted to Dr. Taylor for further evaluation and treatment. SHARED APC VISIT, PHYSICIAN ATTESTATION: [id number] I performed a substantive part of the MDM during the patient?s E/M visit. I personally evaluated and examined the patient. I personally made or approved the documented management plan and acknowledge its risk of complications. Medical Records Medical records reviewed: Yes I reviewed the patient's medical records Lab Data Lab results reviewed: Yes I reviewed the patient's lab results Labs: Lab Results 02/17/24 02/17/24 02/17/24 Range/Units 13:48 13:51 13:59 WBC 28.7 H (4.0-11.0) 10^3/uL RBC 3.76 L (4.20-5.40) 10^6/uL Hgb 9.5 L (12.0-16.0) g/dL Hct 29.8 L (36.0-48.0) % MCV 79.3 L (81.0-99.0) fL MCH 25.3 L (26.7-34.0) pg MCHC 31.9 (29.9-35.2) g/dL RDW 15.9 H (11.0-15.0) % Plt Count 558 H (150-450) 10^3/uL MPV 10.1 (9.5-13.5) fL Seg Neuts % (Manual) 91.0 H (43.0-75.0) Band Neutrophils % 5.0 (0-5) % Lymphocytes % (Manual) 2.0 L (20.5-60.0) % Monocytes % (Manual) 0.0 L (1.7-12.0) % Eosinophils % (Manual) 0.0 L (0.9-7.0) % Basophils % (Manual) 0.0 L (0.2-2.0) % Metamyelocytes % 2.0 Neutrophils # (Manual) 26.11 H (1.4-6.5) 10^3/uL Band Neutrophils # 1.4 H (0.0-0.3) 10^3/uL Lymphocytes # (Manual) 0.57 L (1.20-3.80) 10^3/uL Monocytes # (Manual) 0.00 L (0.30-0.80) 10^3/uL Eosinophils # (Manual) 0.00 (0.00-0.70) 10^3/uL Basophils # (Manual) 0.00 (0.00-0.10) 10^3/uL Metamyelocytes # 0.57 Anisocytosis 1+ Target Cells 1+ Ovalocytes 1+ PT 12.0 H (9.0-11.6) sec INR 1.15 VBG pH 7.328 L (7.330-7.430) VBG pCO2 29.2 L (40.0-52.0) mmHg Sodium 156 H (136-145) mmol/L Potassium 3.2 L (3.5-5.1) mmol/L Chloride 117 H (98-107) mmol/L Carbon Dioxide 19.3 L (21.0-32.0) mmol/L Anion Gap 22.9 BUN 90.0 H* (7.0-18.0) mg/dL Creatinine 2.00 H (0.55-1.02) mg/dL Est GFR ( Amer) 30 L (>=60 mL/min/1.73m^2) Est GFR (Non-Af Amer) 24 L (>=60 mL/min/1.73m^2) BUN/Creatinine Ratio 45.0 Glucose 163 H (74-106) mg/dL Lactate 1.8 (0.4-2.0) mmol/L Calcium 9.8 (8.5-10.1) mg/dL Total Bilirubin 0.3 (0.2-1.0) mg/dL AST 80 H (15-37) U/L ALT 80 H (14-59) U/L Alkaline Phosphatase 176 H (46-116) U/L Total Creatine Kinase 1259 H* (26-192) U/L CK-MB (CK-2) 30.70 H* (<=3.60) ng/mL Myoglobin 3388 H* (9-82) ng/mL Troponin I High Sens 14.0 (4.0-51.3) pg/mL Total Protein 6.8 (6.4-8.2) g/dL Albumin 2.3 L (3.4-5.0) g/dL Globulin 4.5 g/dL Albumin/Globulin Ratio 0.5 TSH 0.027 L (0.358-3.740) uIU/mL Free T4 1.18 (0.76-1.46) ng/dL Free T3 1.55 L (2.18-3.98) pg/mL Urine Color Yellow (YELLOW) Urine Clarity Clear (CLEAR) Urine pH 6.0 (5.0-9.0) Ur Specific [place] 1.015 (1.005-1.025) Urine Protein Trace (NEG/TRACE) mg/dL Urine Glucose (UA) Negative (NEGATIVE) mg/dL Urine Ketones 15 A (NEGATIVE) mg/dL Urine Occult Blood Small A (NEGATIVE) Urine Nitrite Negative (NEGATIVE) Urine Bilirubin Small A (NEGATIVE) Urine Urobilinogen 0.2 (0.2-1.0) EU/dL Ur Leukocyte Esterase Negative (NEGATIVE) Urine RBC 0-2 (0-2) #/HPF Urine WBC 0-2 A (NONE SEEN) #/HPF Ur Squamous Epith Cells Few A (NONE/RARE) #/LPF Ur Renal Epithelial Cell Few A (NONE SEEN) #/LPF Urine Crystals None seen (None Seen) #/HPF Urine Bacteria Trace A (NONE SEEN) #/HPF Urine Casts Seen A (NONE SEEN) #/LPF Hyaline Casts Few Urine Mucus Small A (NONE SEEN) Imaging Data CT scan - head: Attestation: I have reviewed the pertinent imaging results. Radiologist's impression: ITS Impressions Cervical Spine CT 02/17/24 13:36 IMPRESSION: No acute cervical spinal fracture. Thickening of the proximal esophagus. Correlate for esophagitis. Electronically authenticated by: LINNETTE VALLEJO Date: 02/17/2024 15:[address] 02/17/24 13:36 IMPRESSION: No acute intracranial abnormality. Electronically authenticated by: LINNETTE VALLEJO Date: 02/17/2024 15:09 Abdomen/Pelvis CT 02/17/24 14:25 IMPRESSION: Moderate to marked distention of the urinary bladder. No acute traumatic abnormality Electronically authenticated by: MICHELLE RIOC Date: 02/17/2024 15:[address] 02/17/24 14:25 IMPRESSION: 1. No acute traumatic injury in the chest. 2. Mild patchy bilateral peripheral ground glass opacities which may be infectious or inflammatory. 3. Mild centrilobular emphysema. 4. Diffuse esophageal thickening. Correlate for esophagitis. 5. Moderate size hiatal hernia. Electronically authenticated by: LINNETTE VALLEJO Date: 02/17/2024 15:18 ECG Data Attestation: I personally reviewed and interpreted this ECG as follows: (Sinus tachycardia at a rate of 120, no acute ST elevation or ectopy. EKG reviewed by the attending physician) Discharge Plan Discharge Chief Complaint: Fall Patient Disposition: Admitted As Inpatient Time of Disposition Decision: 15:54 Prescriptions / Home Meds: No Action levothyroxine 88 mcg tablet 88 mcg PO QAM albuterol sulfate 90 mcg/actuation HFA aerosol inhaler 2 inh INHALATION Q4H PRN (Reason: shortness of breath or wheezing) amitriptyline 150 mg tablet 150 mg PO .qhs pantoprazole [Protonix] 40 mg tablet,delayed release (DR/EC) 40 mg PO DAILY 42 Days Qty: 42 0RF Print Language: Cam[place]onian Referrals: Masoud Taylor MD [Primary Care Provider] - 1 week
[2024-02-17 13:57] LABS: PCO2 VBG 29.2 mmHg (40.0-52.0); pH VBG 7.328 (7.330-7.430)
[2024-02-17 13:59] LABS: Hematocrit 29.8 % (36.0-48.0); Hemoglobin 9.5 g/dL (12.0-16.0); Mean Corpuscular HGB Conc 31.9 g/dL (29.9-35.2); Mean Corpuscular Hemoglobin 25.3 pg (26.7-34.0); Mean Corpuscular Volume 79.3 fL (81.0-99.0); Mean Platelet Volume 10.1 fL (9.5-13.5); Platelet Count 558 10^3/uL (150-450); Red Blood Count 3.76 10^6/uL (4.20-5.40); Red Cell Distribution Width 15.9 % (11.0-15.0); White Blood Count 28.7 10^3/uL (4.0-11.0)
[2024-02-17] MEDS: 0.9 % SODIUM CHLORIDE 1,000 ML 999 ML IV (14:02)
[2024-02-17 14:13] LABS: Bilirubin Urine SMALL (NEGATIVE); Blood Urine SMALL (NEGATIVE); Clarity Urine CLEAR (CLEAR); Color Urine YELLOW (YELLOW); Glucose Urine UA NEGATIVE (NEGATIVE); Ketones Urine 15 mg/dL (NEGATIVE); Leukocyte Esterase Urine NEGATIVE (NEGATIVE); Nitrite Urine NEGATIVE (NEGATIVE); Protein Urine TRACE mg/dL (NEG/TRACE); Specific Gravity Urine 1.015 (1.005-1.025); Urobilinogen Urine 0.2 EU/dL (0.2-1.0)
[2024-02-17 14:15] LABS: Band Neutrophils Absolute 1.4 10^3/uL (0.0-0.3); Lymphocytes Absolute Manual 0.57 10^3/uL (1.20-3.80); Metamyelocytes Absolute Manual 0.57; Segmented Neut Absolute Manual 26.11 10^3/uL (1.4-6.5)
[2024-02-17 14:16] LABS: Anisocytosis 1+; Lactate/Lactic Acid 1.8 mmol/L (0.4-2.0); Ovalocytes 1+; Target Cells 1+
[2024-02-17 14:17] LABS: Urine Microscopic Indicated YES
[2024-02-17 14:20] LABS: WBC Urine 0-2 #/HPF (NONE SEEN)
[2024-02-17 14:21] LABS: Bacteria Urine TRACE #/HPF (NONE SEEN); Cast Seen? SEEN #/LPF (NONE SEEN); Crystals Seen? None Seen #/HPF (None Seen); Hyaline Casts Urine FEW; Mucus Urine SMALL (NONE SEEN); RBC Urine 0-2 #/HPF (0-2); Renal Epithelial Cells Urine FEW #/LPF (NONE SEEN); Squamous Epithelial Cell Urine FEW #/LPF (NONE/RARE)
[2024-02-17 14:23] LABS: Alanine Aminotransferase 80 U/L (14-59); Albumin Globulin Ratio 0.5; Albumin Level 2.3 g/dL (3.4-5.0); Alkaline Phosphatase 176 U/L (46-116); Anion Gap 22.9; Aspartate Amino Transferase 80 U/L (15-37); Bilirubin Total 0.3 mg/dL (0.2-1.0); Calcium 9.8 mg/dL (8.5-10.1); Carbon Dioxide 19.3 mmol/L (21.0-32.0); Chloride 117 mmol/L (98-107); Estimated GFR (African America 30 (>=60 mL/min/1.73m^2); Estimated GFR (Non-African Ame 24 (>=60 mL/min/1.73m^2); Globulin 4.5 g/dL; Glucose 163 mg/dL (74-106); Potassium 3.2 mmol/L (3.5-5.1); Sodium 156 mmol/L (136-145); Total Protein 6.8 g/dL (6.4-8.2)
--- NOTE | 2024-02-17 14:25 | CT_ITS ---
[address] [address] Patient Name: JESSICA KIRKPATRICK MRN: [id number] date: 1950 Sex: F Assigned Patient Location: ER Current Patient Location: Accession/Order Number: [id number] Exam Date: 02/17/2024 14:31 Report Date: 02/17/2024 15:21 At the request of: FAWAD HERNÁNDEZ Procedure: CT abdomen pelvis wo con EXAMINATION: CT abdomen pelvis wo con HISTORY: fall, weakness COMPARISON: No relevant comparison available. TECHNIQUE: Axial, Coronal, and Sagittal images were created without IV contrast. Dose reduction techniques were achieved by using automated exposure control and/or adjustment of mA and/or kV according to patient size and/or use of iterative reconstruction technique. FINDINGS: LUNG BASES: Bibasilar atelectasis. Moderate hiatal hernia LIVER: No enlargement, atrophy, abnormal density, or significant focal lesion. BILIARY: Surgical clips from cholecystectomy PANCREAS: Moderate diffuse atrophy SPLEEN: No enlargement or focal lesion. ADRENALS: No mass or enlargement. KIDNEYS: No mass, obstruction, or calcification. BOWEL/MESENTERY: Moderate colonic diverticulosis without evidence of acute diverticulitis. Nonobstructive bowel gas pattern. Normal appendix. AORTA/VASCULAR: No aortic aneurysm. Moderate calcific atherosclerosis RETROPERITONEUM: No mass or adenopathy. LYMPH NODES: No adenopathy. URINARY BLADDER: Moderate to marked distention PELVIC ORGANS: No visible mass. Pelvic organs appropriate for patient age. ABDOMINAL WALL: No mass or hernia. BONES: No bony lesion or fracture. Remote healed fracture of the left superior pubic ramus. Moderate degenerative changes of the spine and hips OTHER: Negative. CT/CT abdomen pelvis wo con IMPRESSION: Moderate to marked distention of the urinary bladder. No acute traumatic abnormality Electronically authenticated by: MICHELLE RICO Date: 02/17/2024 15:21
--- NOTE | 2024-02-17 14:25 | CT_ITS ---
The [address] [address] Patient Name: JESSICA KIRKPATRICK MRN: [facility]:[id number] date: 1950 Sex: F Assigned Patient Location: ER Current Patient Location: ER Accession/Order Number: [id number] Exam Date: 02/17/2024 14:31 Report Date: 02/17/2024 15:18 At the request of: FAWAD HERNÁNDEZ Procedure: CT chest wo con CT CHEST WITHOUT CONTRAST. HISTORY: fall, weakness COMPARISON: None. TECHNIQUE: Unenhanced chest CT including axial, sagittal and coronal reformatted images. FINDINGS: LUNGS: There is mild centrilobular emphysema. There are mild patchy bilateral peripheral groundglass opacities. There are no pleural effusions. No pneumothorax. AORTA: No aortic aneurysm. LYMPH NODES: No enlarged mediastinal lymph nodes by CT criteria. Mediastinum: There is thickening of the esophagus. HEART: Normal size. No pericardial effusion. UPPER ABDOMEN: There is a moderate size hiatal hernia. MUSCULOSKELETAL: Axial skeleton shows no acute abnormality. Status post T7 and T8 vertebroplasty. CT/CT chest wo con IMPRESSION: 1. No acute traumatic injury in the chest. 2. Mild patchy bilateral peripheral ground glass opacities which may be infectious or inflammatory. 3. Mild centrilobular emphysema. 4. Diffuse esophageal thickening. Correlate for esophagitis. 5. Moderate size hiatal hernia. Electronically authenticated by: LINNETTE VALLEJO Date: 02/17/2024 15:18
[2024-02-17 14:27] LABS: Thyroid Stimulating Hormone 0.027 uIU/mL (0.358-3.740)
[2024-02-17 14:33] LABS: INR 1.15
[2024-02-17 14:38] LABS: Creatine Kinase 1259 U/L (26-192)
[2024-02-17 14:39] LABS: Myoglobin 3388 ng/mL (9-82)
[2024-02-17 15:06] LABS: Free T4 1.18 ng/dL (0.76-1.46)
[2024-02-17 15:14] LABS: Free T3 1.55 pg/mL (2.18-3.98)
[2024-02-17] MEDS: PIPERACILLIN SODIUM/TAZOBACTAM 4.5 GM in 0.9 % SODIUM CHLORIDE 50 ML IV (16:41)
--- NOTE | 2024-02-17 18:47 | P.HP_ITS ---
HPI H&P: HPI History of Present Illness Chief complaint: WEAKNESS PNEUMONIA Narrative: Neighbor had not heard from her in quite some time, so she did a welfare check, patient was found by EMS to be on floor with a lamp on top of her, she states the last thing she remembers is [place] and the ball dropping, potentially on floor for 6 days. In the ER with tachycardia, hypothermia, respiratory distress, acute hypoxia with O2 sat of 86% and CT scan consistent with pneumonia. Opioid HPI Opioid Management Most Recent Pain and Opioid Data: Last Pain Assessment 02/17/24 17:58 Last ORT Total Score 1 02/17/24 17:15 02/17/24 Last ORT Risk Category Low Risk 02/17/24 17:15 02/17/24 PFSH PFSH Medical History (Updated 02/17/24 @ 15:55 by MISHA Zimmer) COPD (chronic obstructive pulmonary disease) ?J44.9 - Chronic obstructive pulmonary disease, unspecified (ICD-10) Macular degeneration of both eyes ?H35.30 - Unspecified macular degeneration (ICD-10) Depression ?F32.A - Depression, unspecified (ICD-10) Hypothyroidism ?E03.9 - Hypothyroidism, unspecified (ICD-10) Surgical History (Updated 06/13/23 @ 15:48 by Adele Mitchell) History of esophagogastroduodenoscopy (EGD) ?Z98.890 - Other specified postprocedural states (ICD-10) History of colonoscopy ?Z98.890 - Other specified postprocedural states (ICD-10) History of bilateral cataract extraction ?Z98.41 - Cataract extraction status, right eye (ICD-10) ?Z98.42 - Cataract extraction status, left eye (ICD-10) Hx of cholecystectomy ?Z90.49 - Acquired absence of other specified parts of digestive tract (ICD- 10) Family History (Updated 06/13/23 @ 15:42 by Adele Mitchell) Father Alzheimer disease Other Family history of cancer Family history of diabetes mellitus Social History (Updated 02/17/24 @ 17:12 by Meri Fraire) Within the past year, how often did you have a drink containing alcohol: never Score interpretation: A score less than 3 is consistent with normal alcohol consumption. Smoking status: Former smoker Non-prescribed substance use: denies use Previous occupational history: retired Highest level of school completed/degree received: Associate degree: occupational, technical, vocational program In a typical week, how many times do you talk on the telephone with family, friends, or neighbors: once per week How often do you get together with friends or relatives: once per week Little interest or pleasure in doing things: not at all Feeling down, depressed, or hopeless: not at all Feel stressed/tense/nervous/anxious/difficulty sleeping: not at all Gender Identity: female Meds Home Medications and Allergies Home Medications ?Medication ?Instructions ?Recorded ?Confirmed ?Type albuterol sulfate 90 mcg/actuation 2 inh inhalation Q4H PRN shortness 06/13/23 02/17/24 History aerosol inhaler of breath or wheezing amitriptyline 150 mg tablet 150 mg PO .qhs depression 06/13/23 02/17/24 History levothyroxine 88 mcg tablet 88 mcg PO QAM hypothyroidism 06/13/23 02/17/24 History Allergies Allergy/AdvReac Type Severity Reaction Status Date / Time No Known Drug Allergies Allergy Verified 02/17/24 16:23 Exam Constitutional Vital Signs, click to edit/add: Last Vital Signs Temp 98.0 F 02/17/24 17:15 Pulse 110 H 02/17/24 17:15 Resp 14 02/17/24 17:15 BP 113/62 02/17/24 17:15 Pulse Ox 91 L 02/17/24 17:15 O2 Del Method Nasal Cannula 02/17/24 17:15 O2 Flow Rate 2 02/17/24 17:15 Documenting provider has reviewed patient's vital signs: yes Common normals: apparent distress (Cough throughout the evaluation and conversational dyspnea and hoarseness) HENKY Mouth: oral and palatal mucosa not normal (Dry mucous membranes) Chest Common normals: inspection of chest normal (Somewhat barrel chested) Respiratory Common normals: abnormal respiratory effort (Mild to moderate conversational dyspnea, cough throughout) Auscultation: rhonchi and diminished lung sounds; no rales Cardio Common normals: regular rhythm; irregular rate Rate: tachycardic GI Common normals: Normal to inspection, nondistended, normoactive bowel sounds present and soft to palpation Extremity Common normals: abnormal to inspection (Multiple bruises in various stages of healing) Results Labs Labs: Short CBC 02/17/24 Range/Units 13:48 WBC 28.7 H (4.0-11.0) 10^3/uL Hgb 9.5 L (12.0-16.0) g/dL Hct 29.8 L (36.0-48.0) % Plt Count 558 H (150-450) 10^3/uL BMP 02/17/24 13:48 Sodium 156 H Potassium 3.2 L Chloride 117 H Carbon Dioxide 19.3 L BUN 90.0 H* Creatinine 2.00 H Glucose 163 H Calcium 9.8 Cardiac Enzymes 02/17/24 Range/Units 13:48 Total Creatine Kinase 1259 H* (26-192) U/L CK-MB (CK-2) 30.70 H* (<=3.60) ng/mL Liver Function 02/17/24 Range/Units 13:48 Total Bilirubin 0.3 (0.2-1.0) mg/dL AST 80 H (15-37) U/L ALT 80 H (14-59) U/L Alkaline Phosphatase 176 H (46-116) U/L Albumin 2.3 L (3.4-5.0) g/dL Urine 02/17/24 Range/Units 13:59 Urine Color Yellow (YELLOW) Urine Clarity Clear (CLEAR) Urine pH 6.0 (5.0-9.0) Ur Specific [place] 1.015 (1.005-1.025) Urine Protein Trace (NEG/TRACE) mg/dL Urine Glucose (UA) Negative (NEGATIVE) mg/dL ABG ABG results: 02/17/24 13:51 VBG pH 7.328 L VBG pCO2 29.2 L Assessment and Plan Assessment and Plan (1) Hypothyroidism: (2) Acute kidney injury: (3) Leukocytosis: (4) Acute urinary retention: (5) Multifocal pneumonia: (6) COPD (chronic obstructive pulmonary disease): (7) Depression: Plan Admission findings: Sinus tachycardia, respiratory distress, hypothermia, acute hypoxia with O2 sat of 86%, significant leukocytosis over 25,000, thrombocythemia, bandemia, metabolic acidosis with hypernatremia, hypokalemia and acute kidney injury stage II(baseline creatinine 0.79, creatinine admission of 2.00 is 253% above baseline) resulting in sepsis and due to multifocal pneumonia causing acute exacerbation of COPD Sepsis due to multifocal pneumonia causing acute exacerbation of COPD-fluid resuscitation, IV antibiotics, broad-spectrum, concerning for aspiration, patient found on floor for extended period of time, aerosol treatments and steroids. Dehydration resulting in acute kidney injury stage II as outlined above-this is secondary to rhabdomyolysis, IV hydration, consider ultrasound tomorrow the CT scan was unremarkable other than the bladder distention Rhabdomyolysis complicating the acute kidney injury stage II-patient is uncertain how long she has been on the floor but potentially 6 days. Serial labs and IV hydration Hypokalemia-supplement Thrombocythemia likely secondary to the sepsis as outlined above-monitor daily Hypernatremia secondary to the acute kidney injury stage II-IV hydration will use lactated Ringer's for lower sodium content Hyperglycemia-insulin sliding scale, patient not a diabetic but stress of the above may cause hyperglycemia Difficulty swallowing and hoarseness-check speech therapy Elevated liver function test-this is likely secondary to passive congestion from the significant dehydration.-Repeat labs in a.m., CT scan unremarkable for liver evaluation Hypothyroidism-T3 is low so we will increase Cytomel Iron deficiency anemia-possible acute blood loss anemia, her IV Protonix and stool for occult blood Hypokalemia-supplement Insomnia-hold off on amitriptyline for tonight, consider adding tomorrow depending on patient's mental status Admission status: Patient with acute rhabdomyolysis and metabolic acidosis secondary to multifocal pneumonia resulting in sepsis and acute kidney injury stage II, medically necessary treatment will span 2 midnights. Inpatient status. Urinary Catheter Management Urinary Catheter Management Urethral: Cath placed during this visit: yes Urethral indwelling: Yes Reason for continuing: acute urinary retention Insertion date: 02/17/24 Insertion time: 16:21
[2024-02-17 19:07] LABS: Magnesium 2.6 mg/dL (1.8-2.4)
[2024-02-17] MEDS: LEVOFLOXACIN IN DEXTROSE 5 % 750 MG/150 ML PREMIX 100 MG IV (20:11)
[2024-02-17] MEDS: ENSURE ORIGINAL 237 ML BOTTLE PO (20:11)
[2024-02-17] MEDS: LACTATED RINGER'S SOLUTION 1,000 ML 125 ML IV (20:11)
[2024-02-17] MEDS: METHYLPREDNISOLONE SOD SUCC PF 125 MG/2 ML VIAL 60 MG IVP (20:11)
[2024-02-17] MEDS: PANTOPRAZOLE SODIUM 40 MG VIAL IV (20:19)
[2024-02-17] MEDS: PROSTAT 15 GM PROTEIN/100 CAL 30 ML LIQUID PACKET PO (20:19)
[2024-02-17] MEDS: IPRATROPIUM/ALBUTEROL SULFATE 3 ML AMPUL.NEB IH (20:23)
[2024-02-17] MEDS: MAGNESIUM SULFATE IN WATER 2 GM/50 ML PREMIX IV (21:02)
[2024-02-17 21:15] LABS: Influenza Virus A Antigen Negative; Influenza Virus B Antigen Negative; Internal Control Within Normal Limits; SARS-CoV-2 Ag NEGATIVE (NEGATIVE)
[2024-02-17 21:21] LABS: Glucometer 141 mg/dL (74-106)
--- NOTE | 2024-02-17 21:25 | RESP.RT ---
Patient unable to do PEP at this time
--- NOTE | 2024-02-17 21:29 | RESP.RT ---
Patient unable to do PEP at this time
[2024-02-17] MEDS: POTASSIUM CHLORIDE IN WATER 10 MEQ/100 ML PREMIX 100 MEQ IV ×2 (22:12→23:12)
[2024-02-17] MEDS: 0.9 % SODIUM CHLORIDE 250 ML 10 ML IV (22:18)
[2024-02-18] VITALS (24 sets, daily range): BP systolic 121–146; BP diastolic 66–82; PULSE 73–129; TEMP 36.6–37; O2SAT 90–96; BMI 20.2
[2024-02-18] MEDS: POTASSIUM CHLORIDE IN WATER 10 MEQ/100 ML PREMIX 100 MEQ IV ×2 (00:25→01:40)
[2024-02-18] MEDS: METHYLPREDNISOLONE SOD SUCC PF 125 MG/2 ML VIAL 60 MG IVP ×4 (02:45→21:41)
[2024-02-18] MEDS: IPRATROPIUM/ALBUTEROL SULFATE 3 ML AMPUL.NEB IH ×4 (04:17→20:16)
[2024-02-18] MEDS: LEVOTHYROXINE SODIUM 88 MCG TABLET PO (05:20)
[2024-02-18] MEDS: LIOTHYRONINE SODIUM 5 MCG TABLET 10 MCG PO (05:20)
[2024-02-18 05:30] LABS: Basophils Absolute Auto 0.1 10^3/uL (0.0-0.1); Basophils Percent Auto 0.3 % (0.2-2.0); Hematocrit 24.7 % (36.0-48.0); Hemoglobin 7.8 g/dL (12.0-16.0); Immature Granulocytes Abs Auto 0.77 10^3/uL (0.00-0.03); Immature Granulocytes Pct Auto 3.5 % (0.0-0.5); Lymphocytes Absolute Auto 0.4 10^3/uL (1.2-3.8); Lymphocytes Percent Auto 1.8 % (20.5-60.0); Mean Corpuscular HGB Conc 31.6 g/dL (29.9-35.2); Mean Corpuscular Volume 79.2 fL (81.0-99.0); Mean Platelet Volume 9.6 fL (9.5-13.5); Monocytes Absolute Auto 0.5 10^3/uL (0.3-0.8); Monocytes Percent Auto 2.1 % (1.7-12.0); Neutrophils Absolute Auto 20.3 10^3/uL (1.4-6.5); Neutrophils Percent Auto 92.3 % (43.0-75.0); Platelet Count 420 10^3/uL (150-450); Red Blood Count 3.12 10^6/uL (4.20-5.40); Red Cell Distribution Width 15.9 % (11.0-15.0)
[2024-02-18 05:44] LABS: INR 1.21; Partial Thromboplastin Time 27.1 sec (22.3-36.2); Prothrombin Time 12.6 sec (9.0-11.6)
[2024-02-18 05:51] LABS: Ammonia <10 umol/L (11-32)
--- NOTE | 2024-02-18 06:36 | P.PN_ITS ---
Progress Note: Subjective Subjective Interval history: More awake and alert this morning. Exam Constitutional Vital Signs, click to edit/add: Last Vital Signs Temp 98.6 F 02/18/24 04:00 Pulse 100 H 02/18/24 06:00 Resp 20 02/18/24 04:17 BP 135/68 02/18/24 04:00 Pulse Ox 93 L 02/18/24 04:17 O2 Del Method Nasal Cannula 02/18/24 04:17 O2 Flow Rate 2 02/18/24 04:17 Documenting provider has reviewed patient's vital signs: yes Common normals: apparent distress (Minimal cough) HENSD Mouth: oral and palatal mucosa not normal (Dry mucous membranes) Chest Common normals: inspection of chest normal (Somewhat barrel chested) Respiratory Common normals: abnormal respiratory effort (Mild conversational dyspnea) Auscultation: rhonchi and diminished lung sounds; no rales Cardio Common normals: regular rhythm; irregular rate Rate: tachycardic GI Common normals: Normal to inspection, nondistended, normoactive bowel sounds present and soft to palpation Extremity Common normals: abnormal to inspection (Multiple bruises in various stages of healing) Progress Note: Objective Labs Labs: Short CBC 02/17/24 02/18/24 Range/Units 13:48 05:18 WBC 28.7 H 22.0 H (4.0-11.0) 10^3/uL Hgb 9.5 L 7.8 L (12.0-16.0) g/dL Hct 29.8 L 24.7 L (36.0-48.0) % Plt Count 558 H 420 (150-450) 10^3/uL BMP 02/17/24 13:48 Sodium 156 H Potassium 3.2 L Chloride 117 H Carbon Dioxide 19.3 L BUN 90.0 H* Creatinine 2.00 H Glucose 163 H Calcium 9.8 Cardiac Enzymes 02/17/24 Range/Units 13:48 Total Creatine Kinase 1259 H* (26-192) U/L CK-MB (CK-2) 30.70 H* (<=3.60) ng/mL Liver Function 02/17/24 Range/Units 13:48 Total Bilirubin 0.3 (0.2-1.0) mg/dL AST 80 H (15-37) U/L ALT 80 H (14-59) U/L Alkaline Phosphatase 176 H (46-116) U/L Albumin 2.3 L (3.4-5.0) g/dL Urine 02/17/24 Range/Units 13:59 Urine Color Yellow (YELLOW) Urine Clarity Clear (CLEAR) Urine pH 6.0 (5.0-9.0) Ur Specific [place] 1.015 (1.005-1.025) Urine Protein Trace (NEG/TRACE) mg/dL Urine Glucose (UA) Negative (NEGATIVE) mg/dL Progress Note: A&P Assessment and Plan (1) Hypothyroidism: (2) Acute kidney injury: (3) Leukocytosis: (4) Acute urinary retention: (5) Multifocal pneumonia: (6) COPD (chronic obstructive pulmonary disease): (7) Depression: Plan Admission findings: Sinus tachycardia, respiratory distress, hypothermia, acute hypoxia with O2 sat of 86%, significant leukocytosis over 25,000, thrombocythemia, bandemia, metabolic acidosis with hypernatremia, hypokalemia and acute kidney injury stage II(baseline creatinine 0.79, creatinine admission of 2.00 is 253% above baseline) resulting in sepsis and due to multifocal pneumonia causing acute exacerbation of COPD Sepsis due to multifocal pneumonia causing acute exacerbation of COPD-fluid resuscitation, IV antibiotics, broad-spectrum, concerning for aspiration, patient found on floor for extended period of time, aerosol treatments and s teroids., White blood cell count improving, bandemia resolved, continue with current antibiotics Dehydration resulting in acute kidney injury stage II as outlined above-this is secondary to rhabdomyolysis, IV hydration, consider ultrasound tomorrow the CT scan was unremarkable other than the bladder distention-repeated fluid bolus this morning Rhabdomyolysis complicating the acute kidney injury stage II-patient is uncertain how long she has been on the floor but potentially 6 days. Serial labs and IV hydration-improving Ldlwtdtepfl-zpmwcvulwc-pvdx need IV today Hypermagnesemia -track each day Thrombocythemia likely secondary to the sepsis as outlined above-monitor daily Hypernatremia secondary to the acute kidney injury stage II-IV hydration will use lactated Ringer's for lower sodium content-repeat Chem-8 later today Hyperglycemia-insulin sliding scale, patient not a diabetic but stress of the above may cause hyperglycemia Difficulty swallowing and hoarseness-check speech therapy Elevated liver function test-this is likely secondary to passive congestion from the significant dehydration.-Repeat labs in a.m., CT scan unremarkable for liver evaluation Hypothyroidism-T3 is low so we will increase Cytomel Iron deficiency anemia--hemoglobin down significantly today, not enough for transfusion, but close, repeat CBC later this morning, continue with IV Protonix Hypokalemia-supplement Insomnia-hold off on amitriptyline for tonight, consider adding tomorrow depending on patient's mental status Severe PCM - diet supplement Hoarseness, dysphagia - Speech therapy eval Admission status: Patient with acute rhabdomyolysis and metabolic acidosis secondary to multifocal pneumonia resulting in sepsis and acute kidney injury stage II, medically necessary treatment will span 2 midnights. Inpatient status. Urinary Catheter Management Urinary Catheter Management Urethral: Cath placed during this visit: yes Urethral indwelling: Yes Reason for continuing: acute urinary retention Insertion date: 02/17/24 Insertion time: 16:21
[2024-02-18] MEDS: 0.9 % SODIUM CHLORIDE 1,000 ML 250 ML IV (06:49)
[2024-02-18 07:06] LABS: Alanine Aminotransferase 73 U/L (14-59); Albumin Globulin Ratio 0.5; Albumin Level 2.1 g/dL (3.4-5.0); Alkaline Phosphatase 144 U/L (46-116); Anion Gap 19.1; Aspartate Amino Transferase 57 U/L (15-37); BUN Creatinine Ratio 44.2; Bilirubin Total 0.2 mg/dL (0.2-1.0); Carbon Dioxide 20.8 mmol/L (21.0-32.0); Estimated GFR (African America 45 (>=60 mL/min/1.73m^2); Estimated GFR (Non-African Ame 37 (>=60 mL/min/1.73m^2); Glucose 141 mg/dL (74-106); Total Protein 6.1 g/dL (6.4-8.2); Troponin I High Sensitivity 36.1 pg/mL (4.0-51.3)
[2024-02-18 07:11] LABS: Sodium 165 mmol/L (136-145)
[2024-02-18 07:12] LABS: Chloride 128 mmol/L (98-107); Creatine Kinase 775 U/L (26-192); Potassium 2.9 mmol/L (3.5-5.1)
[2024-02-18 07:13] LABS: Creatine Kinase MB 13.75 ng/mL (<=3.60); Myoglobin 1035 ng/mL (9-82)
[2024-02-18 07:38] LABS: Magnesium 2.7 mg/dL (1.8-2.4)
[2024-02-18 08:01] LABS: Glucometer 79 mg/dL (74-106)
[2024-02-18] MEDS: POTASSIUM CHLORIDE 40 MEQ in 0.9 % SODIUM CHLORIDE 250 ML 67.5 MEQ IV ×2 (08:30→18:23)
[2024-02-18] MEDS: PROSTAT 15 GM PROTEIN/100 CAL 30 ML LIQUID PACKET PO ×2 (08:31→22:29)
[2024-02-18] MEDS: ENSURE ORIGINAL 237 ML BOTTLE PO ×2 (08:31→22:29)
[2024-02-18] MEDS: PANTOPRAZOLE SODIUM 40 MG VIAL IV ×2 (08:31→22:29)
[2024-02-18] MEDS: LACTATED RINGER'S SOLUTION 1,000 ML 125 ML IV (08:31)
[2024-02-18] MEDS: BUDESONIDE 0.5 MG/2 ML AMPULE NEB IH ×2 (10:16→20:16)
--- NOTE | 2024-02-18 10:24 | RESP.RT ---
Patient getting line put in
--- NOTE | 2024-02-18 10:37 | CM.NOTE ---
Important Message From Medicare discussed with pt, pt verbalizes understanding and signs paper. Original given to pt and copy placed on pt's chart.
[2024-02-18 11:24] LABS: Mean Corpuscular HGB Conc 32.2 g/dL (29.9-35.2); Mean Corpuscular Hemoglobin 25.7 pg (26.7-34.0); Mean Corpuscular Volume 79.6 fL (81.0-99.0); Mean Platelet Volume 9.7 fL (9.5-13.5); Platelet Count 343 10^3/uL (150-450); Red Blood Count 2.69 10^6/uL (4.20-5.40); Red Cell Distribution Width 16.1 % (11.0-15.0); White Blood Count 20.8 10^3/uL (4.0-11.0)
[2024-02-18 11:27] LABS: Hematocrit 21.4 % (36.0-48.0); Hemoglobin 6.9 g/dL (12.0-16.0)
[2024-02-18 11:43] LABS: Band Neutrophils Absolute 0.2 10^3/uL (0.0-0.3); Segmented Neut Absolute Manual 19.96 10^3/uL (1.4-6.5)
[2024-02-18 11:44] LABS: Monocytes Absolute Manual 0.41 10^3/uL (0.30-0.80)
[2024-02-18 11:45] LABS: Anisocytosis 1+; Ovalocytes 1+; Target Cells 1+
[2024-02-18 11:50] LABS: Hypochromasia 1+
[2024-02-18 12:04] LABS: Glucometer 141 mg/dL (74-106)
[2024-02-18 12:24] LABS: Basophils Absolute Auto 0.1 10^3/uL (0.0-0.1); Basophils Percent Auto 0.2 % (0.2-2.0); Hemoglobin 7.4 g/dL (12.0-16.0); Immature Granulocytes Abs Auto 0.75 10^3/uL (0.00-0.03); Immature Granulocytes Pct Auto 3.3 % (0.0-0.5); Lymphocytes Absolute Auto 0.4 10^3/uL (1.2-3.8); Lymphocytes Percent Auto 1.8 % (20.5-60.0); Mean Corpuscular HGB Conc 31.4 g/dL (29.9-35.2); Mean Corpuscular Volume 79.7 fL (81.0-99.0); Mean Platelet Volume 9.7 fL (9.5-13.5); Monocytes Absolute Auto 0.5 10^3/uL (0.3-0.8); Monocytes Percent Auto 2.3 % (1.7-12.0); Neutrophils Absolute Auto 21.1 10^3/uL (1.4-6.5); Neutrophils Percent Auto 92.4 % (43.0-75.0); Platelet Count 350 10^3/uL (150-450); Red Blood Count 2.96 10^6/uL (4.20-5.40); Red Cell Distribution Width 16.2 % (11.0-15.0); White Blood Count 22.8 10^3/uL (4.0-11.0)
[2024-02-18 12:34] LABS: Anion Gap 14.3; BUN Creatinine Ratio 37.4; Carbon Dioxide 22.8 mmol/L (21.0-32.0); Estimated GFR (African America 48 (>=60 mL/min/1.73m^2); Estimated GFR (Non-African Ame 40 (>=60 mL/min/1.73m^2); Glucose 236 mg/dL (74-106); Potassium 3.1 mmol/L (3.5-5.1)
[2024-02-18 12:35] LABS: Calcium 8.6 mg/dL (8.5-10.1)
[2024-02-18 12:36] LABS: Hematocrit 23.6 % (36.0-48.0)
[2024-02-18 12:37] LABS: Chloride 131 mmol/L (98-107); Sodium 165 mmol/L (136-145)
[2024-02-18] MEDS: SODIUM CHLORIDE 0.45 % 1,000 ML 100 ML IV (13:35)
[2024-02-18] MEDS: 0.9 % SODIUM CHLORIDE 250 ML 10 ML IV (13:37)
[2024-02-18] MEDS: DIPHENHYDRAMINE HCL 50 MG/ML VIAL 25 MG IV (13:37)
--- NOTE | 2024-02-18 14:18 | SWNOTE1 ---
JOHNNIE met with pt to discuss dc needs. SW advised pt that at this time therapy is recommending SNF for strengthening before returning home. Pt is in agreement. SW did ask what her plans were after rehab since she does live home alone. Pt voiced she may apply for Medicaid and stay intermediate. SW asked where she would like to go for rehab. Pt stated [place]. JOHNNIE did advise pt that [facility] has very limited Medicaid beds for intermediate after rehab. If they do not have opening for intermediate Medicaid, they would assist pt to transition to [facility] term[facility]. Pt voiced understanding. SW did ask if she had her insurance card with her. She stated no. SW asked permission to call her sister. Pt in agreement. JOHNNIE called pt's sister about dc plans and in regards to her insurance. Pt's sister in agreement that she needs rehab. She stated that after rehab a family member may be able to take her in and help care for her, but it would be up to patient. Pt's sister also had pt's insurance policy ID number. JOHNNIE took that down for nursing facility. Referral sent to [facility]. Referral included face sheet, ED note, H&P, provider notes, case management report, wound consult, nursing notes, diagnostic imaging, med list, and PT/OT notes. [facility] called back and they do not have openings. JOHNNIE went back to speak with pt and she would like [facility]. JOHNNIE reached out to Hawa at [facility] to see if they have openings. Waiting to hear back.
--- NOTE | 2024-02-18 14:37 | SWNOTE1 ---
Hawa at [facility] will review and let SW know if they have openings. Referral sent to [facility]. Referral included face sheet, ED note, H&P, provider notes, case management report, wound consult, nursing notes, diagnostic imaging, med list, and PT/OT notes.
--- NOTE | 2024-02-18 15:13 | SWNOTE1 ---
[facility] is able to accept and starting precert.
--- NOTE | 2024-02-18 16:07 | RESP.RT ---
titrated down from 2lpm
[2024-02-18 17:57] LABS: Hematocrit 27.5 % (36.0-48.0); Hemoglobin 8.9 g/dL (12.0-16.0); Mean Corpuscular HGB Conc 32.4 g/dL (29.9-35.2); Mean Corpuscular Hemoglobin 26.3 pg (26.7-34.0); Mean Corpuscular Volume 81.1 fL (81.0-99.0); Mean Platelet Volume 9.6 fL (9.5-13.5); Platelet Count 314 10^3/uL (150-450); Red Blood Count 3.39 10^6/uL (4.20-5.40); Red Cell Distribution Width 16.8 % (11.0-15.0); White Blood Count 22.6 10^3/uL (4.0-11.0)
[2024-02-18 18:07] LABS: Anion Gap 14.9; BUN Creatinine Ratio 39.1; Calcium 8.5 mg/dL (8.5-10.1); Estimated GFR (African America 59 (>=60 mL/min/1.73m^2); Estimated GFR (Non-African Ame 49 (>=60 mL/min/1.73m^2); Glucose 140 mg/dL (74-106)
[2024-02-18 18:09] LABS: Sodium 165 mmol/L (136-145)
[2024-02-18 18:10] LABS: Chloride 131 mmol/L (98-107); Potassium 2.9 mmol/L (3.5-5.1)
[2024-02-18 18:17] LABS: Band Neutrophils Absolute 0.7 10^3/uL (0.0-0.3); Lymphocytes Absolute Manual 0.45 10^3/uL (1.20-3.80); Monocytes Absolute Manual 0.67 10^3/uL (0.30-0.80); Ovalocytes 1+; Poikilocytosis 1+; Segmented Neut Absolute Manual 20.79 10^3/uL (1.4-6.5)
--- NOTE | 2024-02-18 18:29 | DIETREC ---
Recommend increase nutritional supplements: provide 237 mL Ensure Original 4x daily; provide 30 mL PRO-stat 4x daily. Encourage PO intakes of food and fluids.
[2024-02-18] MEDS: DEXTROSE 5 % IN WATER 1,000 ML 50 ML IV (21:41)
[2024-02-18 21:47] LABS: Glucometer 165 mg/dL (74-106)
[2024-02-18] MEDS: INSULIN ASPART 300 UNIT/3 ML PEN SUBQ (22:29)
[2024-02-19] VITALS (21 sets, daily range): BP systolic 134–157; BP diastolic 74–98; PULSE 108–122; TEMP 36.4–36.8; O2SAT 87–98
[2024-02-19] MEDS: IPRATROPIUM/ALBUTEROL SULFATE 3 ML AMPUL.NEB IH ×4 (04:02→20:01)
[2024-02-19] MEDS: METHYLPREDNISOLONE SOD SUCC PF 125 MG/2 ML VIAL 60 MG IVP (04:21)
[2024-02-19] MEDS: SODIUM CHLORIDE 0.45 % 1,000 ML 50 ML IV (04:21)
[2024-02-19] MEDS: LEVOTHYROXINE SODIUM 75 MCG TABLET PO (06:14)
[2024-02-19] MEDS: LIOTHYRONINE SODIUM 5 MCG TABLET 10 MCG PO (06:14)
[2024-02-19 06:24] LABS: Basophils Absolute Auto 0.1 10^3/uL (0.0-0.1); Basophils Percent Auto 0.2 % (0.2-2.0); Hematocrit 27.2 % (36.0-48.0); Hemoglobin 8.8 g/dL (12.0-16.0); Immature Granulocytes Pct Auto 3.5 % (0.0-0.5); Lymphocytes Absolute Auto 0.4 10^3/uL (1.2-3.8); Lymphocytes Percent Auto 1.5 % (20.5-60.0); Mean Corpuscular HGB Conc 32.4 g/dL (29.9-35.2); Mean Corpuscular Hemoglobin 26.3 pg (26.7-34.0); Mean Corpuscular Volume 81.2 fL (81.0-99.0); Mean Platelet Volume 9.9 fL (9.5-13.5); Monocytes Absolute Auto 0.8 10^3/uL (0.3-0.8); Monocytes Percent Auto 2.7 % (1.7-12.0); Neutrophils Absolute Auto 26.2 10^3/uL (1.4-6.5); Neutrophils Percent Auto 92.1 % (43.0-75.0); Platelet Count 280 10^3/uL (150-450); Red Blood Count 3.35 10^6/uL (4.20-5.40); Red Cell Distribution Width 16.5 % (11.0-15.0); White Blood Count 28.5 10^3/uL (4.0-11.0)
[2024-02-19 07:03] LABS: Magnesium 2.1 mg/dL (1.8-2.4)
[2024-02-19 07:14] LABS: Alanine Aminotransferase 73 U/L (14-59); Albumin Globulin Ratio 0.6; Alkaline Phosphatase 117 U/L (46-116); Anion Gap 14.3; Aspartate Amino Transferase 46 U/L (15-37); BUN Creatinine Ratio 33.6; Bilirubin Total 0.3 mg/dL (0.2-1.0); Calcium 8.3 mg/dL (8.5-10.1); Carbon Dioxide 22.6 mmol/L (21.0-32.0); Estimated GFR (African America 59 (>=60 mL/min/1.73m^2); Estimated GFR (Non-African Ame 49 (>=60 mL/min/1.73m^2); Globulin 3.6 g/dL; Glucose 178 mg/dL (74-106); Total Protein 5.6 g/dL (6.4-8.2)
[2024-02-19 07:17] LABS: Myoglobin 614 ng/mL (9-82); Troponin I High Sensitivity 68.5 pg/mL (4.0-51.3)
[2024-02-19 07:18] LABS: Chloride 132 mmol/L (98-107); Creatine Kinase 487 U/L (26-192); Potassium 2.9 mmol/L (3.5-5.1); Sodium 166 mmol/L (136-145)
[2024-02-19 07:47] LABS: Creatine Kinase MB 9.04 ng/mL (<=3.60)
--- NOTE | 2024-02-19 08:00 | CA_ITS ---
Patient Name: JESSICA KIRKPATRICK MR#: [id number] : 1950 Exam Date: 02/19/2024 Ordering Doctor: DR Masoud Taylor . ECHOCARDIOGRAM REPORT PROCEDURE: CA ECHO DOPPLER COMPLETE INDICATIONS: elevated trop, COPD COMPARISON: None. DESCRIPTION: COMPLETE ECHOCARDIOGRAM Real-time transthoracic echocardiography with 2D, M-mode, spectral and color flow Doppler performed. QUALITY: Technical quality was good. LEFT VENTRICLE: Normal chamber size. Normal left ventricular wall thickness. Proximal septal hypertrophy (sigmoid septum). LV EF: Global left ventricular systolic function is normal; visually estimated ejection fraction is 60 to 65%. No wall motion abnormalities. DIASTOLIC: Diastolic function is indeterminate ATRIAL SEPTUM: Inadequately seen. LEFT ATRIUM: Mild dilatation. RIGHT ATRIUM: Normal chamber size. RIGHT VENTRICLE:Normal chamber size. Normal right ventricular systolic function. TRICUSPID VALVE: Normal mobility and thickness. No stenosis with mild regurgitation. Doppler studies reveal severely (>60) elevated right sided pressures. RVSP 65 mmHg MITRAL VALVE: Normal mobility and thickness. No evidence of mitral valve stenosis. Mild to moderate mitral regurgitation. AORTIC VALVE: Normal trileaflet appearance. Moderately calcified aortic valve with diminished mobility. Doppler velocity suggests mild aortic valve stenosis. No aortic regurgitation. AORTIC ROOT: Normal diameter and appearance. PULMONIC VALVE: Normal thickness and mobility. No stenosis. PERICARDIUM: No evidence of pericardial effusion. IVC: IVC is dilated (2.3 cm), does not collapse. CONCLUSION: 1. Global left ventricular systolic function is normal; visually estimated ejection fraction is 60 to 65% 2. Normal right ventricular size and systolic function 3. The left atrium is mildly dilated 4. Diastolic function is indeterminate 5. Mild tricuspid regurgitation 6. Severely elevated right ventricular systolic pressure; RVSP 65 mmHg 7. Mild to moderate mitral regurgitation 8. Mild aortic valve stenosis Adult Echocardiography Procedure Report Left Ventricle LVEDD (3.7 - 5.6 cm): 3.85 cm LVESD (2.2 - 4.0 cm): 3.01 cm LVIVS thickness (0.6 - 1.2 cm): 0.96 cm LVPW thickness (0.5 - 1.0 cm): 0.91 cm e': 0.13 m/s E - e': 8.43 LVOT Max Gradient: 6.58 mm[Hg] LVOT Area (cm2): 1.28 m/s Peak Velocity (LVOT): 1.28 m/s Mean Velocity (LVOT): 0.79 m/s LVOT Diameter 2.00 cm Left Atrium LA Volume Index (2D A2C): 41.46 ml/m2 Left Atrium Systolic Dimension: 2.52 cm Mitral Valve MV E to A Ratio: 0.76 Mitral Valve A-Wave Peak Velocity: 1.46 m/s Mitral Valve E-Wave Peak Velocity: 1.10 m/s Right Ventricle Aorta AO Root Diam: 2.96 cm Ascending Ao Diam: 2.15 cm Aortic Valve AoV Area (Peak Estuardo): 1.44 cm2, 1.44 cm2 AoV Area (VTI): 1.36 cm2, 1.36 cm2 Peak Velocity(Antegrade Flow): 2.78 m/s, 2.53 m/s Peak Gradient(Antegrade Flow): 30.85 mm[Hg], 25.57 mm[Hg] Mean Velocity(Antegrade Flow): 1.78 m/s, 1.81 m/s Mean Gradient(Antegrade Flow): 15.10 mm[Hg], 14.57 mm[Hg] Velocity Time Integral: 50.58 cm, 47.43 cm Tricuspid Valve Peak Velocity (Regurgitant Flow): 3.52 m/s Pulmonic Valve Mean Gradient: 2.37 mm[Hg] Mean Velocity: 0.72 m/s Peak Velocity: 1.11 m/s, 1.19 m/s Peak Gradient: 5.66 mm[Hg], 4.92 mm[Hg] Right Atrium Right Atrium Systolic Pressure: 25.20 ml, 25.20 ml Dictated by: Gen Ibarra M.D. on 02/21/2024 at 13:35 Approved by: Gen Ibarra M.D. on 02/21/2024 at 15:07
--- NOTE | 2024-02-19 08:01 | XR_ITS ---
The [address] [address] Patient Name: JESSICA KIRKPATRICK MRN: [facility]:[id number] date: 1950 Sex: F Assigned Patient Location: [place] Current Patient Location: Accession/Order Number: [id number] Exam Date: 02/19/2024 08:22 Report Date: 02/19/2024 08:41 At the request of: SUMANTH PEARCE Procedure: XR chest 1V EXAM: XR chest 1V HISTORY: hypoxia COMPARISON: CT chest dated 02/17/2024. TECHNIQUE: AP erect portable chest radiograph performed. FINDINGS: Right PICC with the distal tip extending to the cavoatrial junction. The trachea is midline. There is mild enlargement of the cardiac silhouette. There is mild atheromatous calcification at the aortic arch. Patchy airspace disease scattered throughout both lung [place] which in the right clinical setting is consistent with a multifocal pneumonia. Similar findings were seen on the previous CT examination. There is blunting of both posterior costophrenic angles. There is no pulmonary vascular congestion. There is no pneumothorax or acute osseous abnormality. The bony structures are osteopenic. There is slight dextroscoliosis of the thoracic spine. There are compression fractures and vertebroplasties a couple levels along the mid thoracic spine. XR/XR chest 1V IMPRESSION: Patchy airspace disease scattered throughout both lung [place] which in the right clinical setting is consistent with a multifocal pneumonia. Similar findings were seen on the previous CT examination. There is blunting of both lateral costophrenic angles. Electronically authenticated by: MONICA OTTO Date: 02/19/2024 08:41
--- NOTE | 2024-02-19 08:06 | P.PN_ITS ---
Progress Note: Subjective Subjective Interval history: Patient still lethargic this morning but awake and alert, some cough throughout the evaluation Exam Constitutional Vital Signs, click to edit/add: Last Vital Signs Temp 97.8 F 02/19/24 07:25 Pulse 121 H 02/19/24 07:47 Resp 20 02/19/24 07:25 BP 149/81 H 02/19/24 07:25 Pulse Ox 90 L 02/19/24 07:30 O2 Del Method Nasal Cannula 02/19/24 07:30 O2 Flow Rate 2 02/19/24 07:30 Documenting provider has reviewed patient's vital signs: yes Common normals: no apparent distress Chest Common normals: inspection of chest normal Respiratory Common normals: normal respiratory effort, no retractions and no use of accessory muscles Auscultation: rhonchi Cardio Common normals: regular rhythm; irregular rate Rate: tachycardic Progress Note: Objective Labs Labs: Short CBC 02/18/24 02/18/24 02/18/24 Range/Units 11:13 12:17 17:45 WBC 20.8 H 22.8 H 22.6 H (4.0-11.0) 10^3/uL Hgb 6.9 L* 7.4 L 8.9 L (12.0-16.0) g/dL Hct 21.4 L* 23.6 L* 27.5 L (36.0-48.0) % Plt Count 343 350 314 (150-450) 10^3/uL 02/19/24 Range/Units 06:09 WBC 28.5 H (4.0-11.0) 10^3/uL Hgb 8.8 L (12.0-16.0) g/dL Hct 27.2 L (36.0-48.0) % Plt Count 280 (150-450) 10^3/uL BMP 02/18/24 02/18/24 02/19/24 12:17 17:45 05:58 Sodium 165 H* 165 H* 166 H* Potassium 3.1 L 2.9 L* 2.9 L* Chloride 131 H* 131 H* 132 H* Carbon Dioxide 22.8 22.0 22.6 BUN 49.0 H 43.0 H 37.0 H Creatinine 1.31 H 1.10 H 1.10 H Glucose 236 H 140 H 178 H Calcium 8.6 8.5 8.3 L Cardiac Enzymes 02/19/24 Range/Units 05:58 Total Creatine Kinase 487 H* (26-192) U/L CK-MB (CK-2) 9.04 H* (<=3.60) ng/mL Liver Function 02/19/24 Range/Units 05:58 Total Bilirubin 0.3 (0.2-1.0) mg/dL AST 46 H (15-37) U/L ALT 73 H (14-59) U/L Alkaline Phosphatase 117 H (46-116) U/L Albumin 2.0 L (3.4-5.0) g/dL Progress Note: A&P Assessment and Plan (1) Hypothyroidism: (2) Acute kidney injury: (3) Leukocytosis: (4) Acute urinary retention: (5) Multifocal pneumonia: (6) COPD (chronic obstructive pulmonary disease): (7) Depression: Plan Admission findings: Sinus tachycardia, respiratory distress, hypothermia, acute hypoxia with O2 sat of 86%, significant leukocytosis over 25,000, thrombocythemia, coagulopathy, bandemia, metabolic acidosis with hypernatremia, hypokalemia and acute kidney injury stage II(baseline creatinine 0.79, creatinine admission of 2.00 is 253% above baseline) resulting in sepsis and due to multifocal pneumonia causing acute exacerbation of COPD Sepsis due to multifocal pneumonia causing acute exacerbation of COPD-continue current treatment plan, white blood cell count is higher could be steroid related, adding back to Zosyn. Dehydration resulting in acute kidney injury stage II as outlined above-almost back to baseline Rhabdomyolysis complicating the acute kidney injury stage II-numbers improving, troponin is elevated today, check echocardiogram Coagulopathy secondary to the sepsis-check on labs again tomorrow Xrnlmvocwwz-dchnvzmpyf-icuc need IV today Hypermagnesemia -resolved Thrombocythemia likely secondary to the sepsis as outlined above-monitor daily Hypernatremia secondary to the acute kidney injury stage II- not responding to fluids, will change patient to just D5W., Repeat labs later today Hyperglycemia-insulin sliding scale, patient not a diabetic but stress of the above may cause hyperglycemia Difficulty swallowing and hoarseness-speech therapy cleared for swallowing, thin liquids mechanical soft diet Elevated liver function test-this is likely secondary to passive congestion from the significant dehydration.-Repeat labs in a.m., CT scan unremarkable for liver evaluation Hypothyroidism-T3 is low so we will increase Cytomel Iron deficiency anemia--hemoglobin down significantly today, not enough for transfusion, but close, repeat CBC later this morning, continue with IV Protonix Insomnia-hold off on amitriptyline for tonight, consider adding tomorrow depending on patient's mental status Severe PCM - diet supplement Hoarseness, dysphagia - Speech therapy eval-see above Admission status: Patient with acute rhabdomyolysis and metabolic acidosis secondary to multifocal pneumonia resulting in sepsis and acute kidney injury stage II, medically necessary treatment will span 2 midnights. Inpatient status. Urinary Catheter Management Urinary Catheter Management Urethral: Cath placed during this visit: yes Urethral indwelling: Yes Reason for continuing: measure accurate output Insertion date: 02/17/24 Insertion time: 16:21
[2024-02-19] MEDS: WATER IV (08:40)
[2024-02-19] MEDS: POTASSIUM CHLORIDE IV (08:40)
[2024-02-19] MEDS: DEXTROSE 5% IV (08:40)
[2024-02-19] MEDS: PROSTAT 15 GM PROTEIN/100 CAL 30 ML LIQUID PACKET PO ×2 (08:52→22:30)
[2024-02-19] MEDS: ENSURE ORIGINAL 237 ML BOTTLE PO ×2 (08:52→22:30)
[2024-02-19] MEDS: PIPERACILLIN SODIUM/TAZOBACTAM 3.375 GM in 0.9 % SODIUM CHLORIDE 50 ML IV ×2 (10:14→17:11)
--- NOTE | 2024-02-19 10:34 | REH.PTDLY ---
Physical Therapy Daily Note PT Daily Note/Assess Start: 02/18/24 07:39 Freq: Status: Active Protocol: Document 02/19/24 10:26 KENDRICK (Rec: 02/19/24 10:34 KENDRICK [id number]) Physical Therapy Daily Note/Assessment Time In 10:08 Time Out 10:23 Subjective Pt awake in bed upon arrival, agreeable to therapy. Therapeutic Exercise 5 Minutes (minutes) Therapeutic Exercise 0 Units Therapeutic Exercise instructed in B LE seated exs 10x ea for improved Treatment strength with cues and demo for improved understanding. Pt performs AP, LAQ, marching, hip add squeeze and hip abd. Therapeutic Activity 10 Minutes (minutes) Therapeutic Activity 1 Units Therapeutic Activity Mod A with bed mobility. Cues with bedside sitting to Comments sit upright as pt is heavily leaning to the R side, cues for pt to hold bed rail with L UE for support, pt requires Mod A initially to keep balance and then able to maintain CGA, but still leans some to the R. Sit to stand transfers Min A. Pt still leaning to the R initially upon standing with cues to correct. Pt requires Max A x1, and min A x1 to ambulate with RW 15 feet. Directional cues needed as well for pt to push the walker to the R, pt is not strong enough to do so and needs assistance. Cues with sitting in chair to reach back for safety, requires Mod A to slowly lower into chair. Total Therapy 15 Minutes Total Physical 1 Therapy Units Daily Note Summary Pt is very weak, needs 2 assist for safety with ambulation. Pt leans heavily to the R side with cues to correct, with small improvement noted. Pt will need SNF stay at [facility] due to weakness and inability to safely transfer or ambulate on her own.
[2024-02-19] MEDS: BUDESONIDE 0.5 MG/2 ML AMPULE NEB IH ×2 (10:46→20:01)
[2024-02-19 11:17] LABS: Glucometer 257 mg/dL (74-106)
[2024-02-19] MEDS: METHYLPREDNISOLONE SOD SUCC PF 125 MG/2 ML VIAL 40 MG IVP ×2 (11:18→22:30)
[2024-02-19] MEDS: INSULIN ASPART 300 UNIT/3 ML PEN SUBQ ×2 (11:19→16:23)
--- NOTE | 2024-02-19 13:54 | SWNOTE1 ---
SW sent over updated PT/OT/ST to [facility] for precert.
[2024-02-19] MEDS: DEXTROSE 5 % IN WATER 1,000 ML 50 ML IV (14:34)
--- NOTE | 2024-02-19 15:31 | OT.DAILY ---
Occupational Therapy Daily Note OT Inpatient Daily Visit Note Start: 02/18/24 11:08 Freq: Status: Active Protocol: Document 02/19/24 15:23 [id number] (Rec: 02/19/24 15:31 [id number]) OT Visit Details Time In/Time Out Time In 11:58 Time Out 12:15 OT Treatment Plan Subjective Subjective I am feeling good Pt agreeable to participate and increase endurance. Objective Objective With 3-5 verbal cues and Min A Pt able to move supine to EOB. Pt took a break before transition to next task. Completed STS with Min A, able to maintain SUNSHINE with walker. 1-3 VCs to maintain good posture. Standing tolerance of 4x mins. Reports no pain or dizziness while standing. No SOB or LOB. Min A sitting down, VCs required for appropriate safety techniques. ORCHARD SPRAYER present during session. Assessment Assessment Pt tolerated treatment well. She is pleased with progress. Denies pain before/after session. Pt left supine in bed, call light within reach. Continue OT POC . OT Carriage Dogger Timed Codes Therapeutic activity 17 minutes (minutes) Therapeutic activity 1 units
[2024-02-19 15:39] LABS: Anion Gap 12.6; BUN Creatinine Ratio 29.4; Calcium 8.6 mg/dL (8.5-10.1); Carbon Dioxide 23.8 mmol/L (21.0-32.0); Estimated GFR (African America 54 (>=60 mL/min/1.73m^2); Estimated GFR (Non-African Ame 44 (>=60 mL/min/1.73m^2); Glucose 136 mg/dL (74-106); Potassium 3.4 mmol/L (3.5-5.1)
[2024-02-19 15:41] LABS: Chloride 130 mmol/L (98-107); Sodium 163 mmol/L (136-145)
[2024-02-19 16:03] LABS: Glucometer 183 mg/dL (74-106)
[2024-02-19] MEDS: 0.9 % SODIUM CHLORIDE 250 ML 10 ML IV (19:41)
[2024-02-19] MEDS: LEVOFLOXACIN IN DEXTROSE 5 % 750 MG/150 ML PREMIX 100 MG IV (19:42)
[2024-02-19 20:10] LABS: Glucometer 127 mg/dL (74-106)
[2024-02-19] MEDS: PANTOPRAZOLE SODIUM 40 MG VIAL IV (22:30)
[2024-02-20] VITALS (19 sets, daily range): BP systolic 130–148; BP diastolic 75–84; PULSE 13–130; TEMP 36.6–37.2; O2SAT 90–98
[2024-02-20] MEDS: PIPERACILLIN SODIUM/TAZOBACTAM 3.375 GM in 0.9 % SODIUM CHLORIDE 50 ML IV (01:59)
[2024-02-20] MEDS: IPRATROPIUM/ALBUTEROL SULFATE 3 ML AMPUL.NEB IH ×4 (04:09→20:00)
[2024-02-20] MEDS: METHYLPREDNISOLONE SOD SUCC PF 125 MG/2 ML VIAL 40 MG IVP ×2 (04:22→15:57)
[2024-02-20 05:26] LABS: Hematocrit 26.6 % (36.0-48.0); Hemoglobin 8.5 g/dL (12.0-16.0); Mean Corpuscular Hemoglobin 26.1 pg (26.7-34.0); Mean Corpuscular Volume 81.6 fL (81.0-99.0); Platelet Count 219 10^3/uL (150-450); Red Blood Count 3.26 10^6/uL (4.20-5.40); Red Cell Distribution Width 16.8 % (11.0-15.0); White Blood Count 28.6 10^3/uL (4.0-11.0)
[2024-02-20 05:50] LABS: Alanine Aminotransferase 76 U/L (14-59); Albumin Globulin Ratio 0.6; Albumin Level 1.9 g/dL (3.4-5.0); Alkaline Phosphatase 118 U/L (46-116); Anion Gap 12.9; Aspartate Amino Transferase 46 U/L (15-37); BUN Creatinine Ratio 27.2; Bilirubin Total 0.4 mg/dL (0.2-1.0); Calcium 8.1 mg/dL (8.5-10.1); Carbon Dioxide 25.1 mmol/L (21.0-32.0); Estimated GFR (African America 57 (>=60 mL/min/1.73m^2); Estimated GFR (Non-African Ame 47 (>=60 mL/min/1.73m^2); Globulin 3.3 g/dL; Glucose 137 mg/dL (74-106); Total Protein 5.2 g/dL (6.4-8.2)
[2024-02-20 05:52] LABS: Sodium 161 mmol/L (136-145)
[2024-02-20 05:53] LABS: Chloride 126 mmol/L (98-107)
[2024-02-20 05:54] LABS: Creatine Kinase 324 U/L (26-192); Creatine Kinase MB 6.69 ng/mL (<=3.60); Myoglobin 538 ng/mL (9-82); Troponin I High Sensitivity 99.3 pg/mL (4.0-51.3)
[2024-02-20] MEDS: LIOTHYRONINE SODIUM 5 MCG TABLET 10 MCG PO (06:02)
[2024-02-20] MEDS: LEVOTHYROXINE SODIUM 75 MCG TABLET PO (06:02)
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
[2024-02-20 06:10] LABS: Band Neutrophils Absolute 0.6 10^3/uL (0.0-0.3); Lymphocytes Absolute Manual 0.28 10^3/uL (1.20-3.80); Monocytes Absolute Manual 0.57 10^3/uL (0.30-0.80); Segmented Neut Absolute Manual 27.17 10^3/uL (1.4-6.5)
[2024-02-20 06:12] LABS: Ovalocytes 1+
[2024-02-20 06:48] LABS: INR 1.31; Partial Thromboplastin Time 24.5 sec (22.3-36.2); Prothrombin Time 13.5 sec (9.0-11.6)
--- NOTE | 2024-02-20 07:46 | P.PN_ITS ---
Progress Note: Subjective Subjective Interval history: Patient still confusion overnight time barely slept last night. Becoming more agitated with staff Exam Constitutional Vital Signs, click to edit/add: Last Vital Signs Temp 98.7 F 02/20/24 07:25 Pulse 118 H 02/20/24 07:25 Resp 20 02/20/24 07:25 BP 141/80 02/20/24 07:25 Pulse Ox 90 L 02/20/24 07:25 O2 Del Method Room Air 02/20/24 07:25 O2 Flow Rate 1 02/19/24 16:11 Documenting provider has reviewed patient's vital signs: yes Common normals: no apparent distress (Definitely seems more frustrated today) Chest Common normals: inspection of chest normal Respiratory Common normals: normal respiratory effort, no retractions and no use of accessory muscles Auscultation: rhonchi (Unchanged) Cardio Common normals: regular rhythm; irregular rate Rate: tachycardic Progress Note: Objective Labs Labs: Short CBC 02/20/24 Range/Units 04:59 WBC 28.6 H (4.0-11.0) 10^3/uL Hgb 8.5 L (12.0-16.0) g/dL Hct 26.6 L (36.0-48.0) % Plt Count 219 (150-450) 10^3/uL BMP 02/19/24 02/20/24 15:10 04:59 Sodium 163 H* 161 H* Potassium 3.4 L 3.0 L Chloride 130 H* 126 H* Carbon Dioxide 23.8 25.1 BUN 35.0 H 31.0 H Creatinine 1.19 H 1.14 H Glucose 136 H 137 H Calcium 8.6 8.1 L Cardiac Enzymes 02/19/24 02/20/24 Range/Units 05:58 04:59 Total Creatine Kinase 324 H* (26-192) U/L CK-MB (CK-2) 9.04 H* 6.69 H* (<=3.60) ng/mL Liver Function 02/20/24 Range/Units 04:59 Total Bilirubin 0.4 (0.2-1.0) mg/dL AST 46 H (15-37) U/L ALT 76 H (14-59) U/L Alkaline Phosphatase 118 H (46-116) U/L Albumin 1.9 L (3.4-5.0) g/dL Progress Note: A&P Assessment and Plan (1) Hypothyroidism: (2) Acute kidney injury: (3) Leukocytosis: (4) Acute urinary retention: (5) Multifocal pneumonia: (6) COPD (chronic obstructive pulmonary disease): (7) Depression: Plan Admission findings: Sinus tachycardia, respiratory distress, hypothermia, acute hypoxia with O2 sat of 86%, significant leukocytosis over 25,000, thrombocythemia, coagulopathy, bandemia, metabolic acidosis with hypernatremia, hypokalemia and acute kidney injury stage II(baseline creatinine 0.79, creatinine admission of 2.00 is 253% above baseline) resulting in sepsis and due to multifocal pneumonia causing acute exacerbation of COPD Sepsis due to multifocal pneumonia causing acute exacerbation of COPD-continue to taper steroids, white blood cell count higher than previous day despite decreasing steroids, also will change antibiotics, 4 tablets for gram-negative including Pseudomonas, Flagyl for anaerobes and linezolid for MRSA Dehydration resulting in acute kidney injury stage II as outlined above- creatinines been pretty stable, needs to continue with D5W for hypernatremia Altered mental status-Adipex half a dose during the morning and 5 mg at nighttime Elevated troponin-EKG without acute changes, may be strain pattern, checking on echocardiogram Rhabdomyolysis complicating the acute kidney injury stage II-numbers are continuing to improve, will hold off on further testing except troponin Coagulopathy secondary to the sepsis-check on labs Kdbmobiiiop-knehnrrthj-yfgh need IV today, repeating IV and oral today Hypermagnesemia -resolved Thrombocythemia likely secondary to the sepsis as outlined above-monitor daily Hypernatremia secondary to the acute kidney injury stage II-finally responding to D5W and sugars are fairly stable, will maintain that Hyperglycemia-insulin sliding scale, fairly stable Difficulty swallowing and hoarseness-speech therapy cleared for swallowing, thin liquids mechanical soft diet Elevated liver function test-this is likely secondary to passive congestion from the significant dehydration.-Repeat labs in a.m., CT scan unremarkable for liver evaluation Hypothyroidism-T3 is low so we will increase Cytomel Iron deficiency anemia--hemoglobin down significantly today, not enough for transfusion, but close, repeat CBC later this morning, continue with IV Protonix Insomnia-restart amitriptyline and add Zyprexa Severe PCM - diet supplement Hoarseness, dysphagia - Speech therapy massimo-jaquan above Altered mental status and generalized weakness-patient is in need of rehab. Possibly tomorrow more likely 2-3 more days based on changes in white blood cell count and improvement in her sodium L Admission status: Patient with acute rhabdomyolysis and metabolic acidosis secondary to multifocal pneumonia resulting in sepsis and acute kidney injury stage II, medically necessary treatment will span 2 midnights. Inpatient status. Urinary Catheter Management Urinary Catheter Management Urethral: Cath placed during this visit: yes Urethral indwelling: Yes Reason for continuing: urinary obstruction Insertion date: 02/17/24 Insertion time: 16:21
[2024-02-20] MEDS: CEFTAZIDIME 2,000 MG in 0.9 % SODIUM CHLORIDE 100 ML 200 MG IV ×2 (08:35→21:09)
[2024-02-20] MEDS: PROSTAT 15 GM PROTEIN/100 CAL 30 ML LIQUID PACKET PO ×2 (08:41→21:09)
[2024-02-20] MEDS: ENSURE ORIGINAL 237 ML BOTTLE PO (08:41)
[2024-02-20] MEDS: L. ACIDOPHILUS/L.BULGARICUS 1 PACKET GRAN.PACK PO ×2 (08:42→21:08)
[2024-02-20] MEDS: POTASSIUM CHLORIDE 10 MEQ ER TABLET 20 MEQ PO ×2 (08:42→21:08)
[2024-02-20] MEDS: OLANZapine 5 MG TABLET 2.5 MG PO (08:42)
[2024-02-20] MEDS: METOPROLOL TARTRATE 25 MG TABLET PO ×2 (08:42→21:09)
--- NOTE | 2024-02-20 09:33 | SWNOTE1 ---
JOHNNIE had message from Hawa at [facility] and pt did get approved. JOHNNIE checked with doctor, but pt is not medically stable for discharge. JOHNNIE let Hawa at [facility] know that no discharge today. JOHNNIE did ask how long approval is good for, waiting to hear back.
[2024-02-20] MEDS: METRONIDAZOLE/SODIUM CHLORIDE 500 MG/100 ML PREMIX 100 MG IV ×3 (09:51→21:55)
[2024-02-20] MEDS: DEXTROSE 5 % IN WATER 1,000 ML 50 ML IV (09:51)
[2024-02-20] MEDS: LINEZOLID IN DEXTROSE 5% 600 MG/300 ML PIGGYBACK 300 MG IV ×2 (11:00→23:00)
[2024-02-20 11:11] LABS: Glucometer 153 mg/dL (74-106)
[2024-02-20] MEDS: BUDESONIDE 0.5 MG/2 ML AMPULE NEB IH ×2 (11:33→20:00)
--- NOTE | 2024-02-20 12:28 | REH.PTDLY ---
Physical Therapy Daily Note PT Daily Note/Assess Start: 02/18/24 07:39 Freq: Status: Active Protocol: Document 02/20/24 12:22 KENDRICK (Rec: 02/20/24 12:28 [id number] Physical Therapy Daily Note/Assessment Time In 10:38 Time Out 10:51 Subjective Pt up in chair upon arrival, agreeable to therapy. Therapeutic Exercise 5 Minutes (minutes) Therapeutic Exercise 0 Units Therapeutic Exercise Instructed in seated exs with demo 12x ea for improved Treatment strength with cues to keep pt on task Therapeutic Activity 8 Minutes (minutes) Therapeutic Activity 1 Units Therapeutic Activity Sit to stand transfer from chair CGA. Gait training Comments with RW Min A to steer RW at times and cues for directional changes. Pt ambulated 40 feet x2 with fatigue noted. Pt denies any pain. Pt returns to chair with cues for turning and chair alarm on for safety. Total Therapy 13 Minutes Total Physical 1 Therapy Units Daily Note Summary Improved gait distance today, but still requires Min A to maneuver RW and fatigue noted. Pt confused during conversation, talks about a child being under a pillow and it's her sister. Pt will need SNF stay at [facility] to improve safety awareness and strength with gait and transfers.
--- NOTE | 2024-02-20 12:54 | SWNOTE1 ---
Pt's approval is good through 02/23. SW notified doctor.
--- NOTE | 2024-02-20 13:51 | SWNOTE1 ---
JOHNNIE had message from doctor as pt was telling him that pt could go live with her sister. JOHNNIE had spoke to pt's sister earlier in week and her sister has stairs and pt would not be safe to live there, but someone in family was going to try to take patient in. SW to call sister and check on this. JOHNNIE spoke to sister, Hannah. Hannah again expressed that due to the stairs at her home pt can't come live with her. She stated her step mom and step sister were talking about taking patient in. She stated her step mom is 90 and step sister is 70. But at least they could try to help each other and pt would not have to be alone. Hannah voiced pt can't be alone. JOHNNIE did let Hannah know that pt did do better with therapy and ambulated with walker, but yes pt would need to be with someone, not home alone. Hannah voiced she tried to talk to patient last night, but pt having some confusion. Hannah was here earlier, but pt sleeping. JOHNNIE advised Raeganmalena to talk with pt later today and see what she would like to do and then SW will reach back out in morning. JOHNNIE also asked if pt's step mom and sister would be ready for her to come live with her? She voiced she will reach out.
[2024-02-20 15:58] LABS: Glucometer 133 mg/dL (74-106)
[2024-02-20 21:01] LABS: Glucometer 161 mg/dL (74-106)
[2024-02-20] MEDS: OLANZapine 5 MG TABLET PO (21:09)
[2024-02-20] MEDS: PANTOPRAZOLE SODIUM 40 MG VIAL IV (21:55)
[2024-02-20] MEDS: INSULIN ASPART 300 UNIT/3 ML PEN SUBQ (21:55)
[2024-02-21] VITALS (15 sets, daily range): BP systolic 110–139; BP diastolic 70–78; PULSE 82–128; TEMP 36.7; O2SAT 92–96
[2024-02-21] MEDS: METRONIDAZOLE/SODIUM CHLORIDE 500 MG/100 ML PREMIX 100 MG IV ×2 (03:21→11:07)
--- NOTE | 2024-02-21 03:53 | PC.NURSE ---
large loose stool
[2024-02-21] MEDS: IPRATROPIUM/ALBUTEROL SULFATE 3 ML AMPUL.NEB IH ×3 (04:02→15:54)
[2024-02-21 04:07] LABS: Internal Control Within Normal Limits; Occult Blood Negative
[2024-02-21] MEDS: METHYLPREDNISOLONE SOD SUCC PF 125 MG/2 ML VIAL 40 MG IVP (04:08)
[2024-02-21 05:06] LABS: Hematocrit 26.5 % (36.0-48.0); Hemoglobin 8.6 g/dL (12.0-16.0); Mean Corpuscular HGB Conc 32.5 g/dL (29.9-35.2); Mean Corpuscular Hemoglobin 26.6 pg (26.7-34.0); Mean Platelet Volume 10.6 fL (9.5-13.5); Platelet Count 190 10^3/uL (150-450); Red Blood Count 3.23 10^6/uL (4.20-5.40); Red Cell Distribution Width 17.2 % (11.0-15.0); White Blood Count 22.5 10^3/uL (4.0-11.0)
[2024-02-21 05:29] LABS: Band Neutrophils Absolute 0.2 10^3/uL (0.0-0.3); Monocytes Absolute Manual 1.12 10^3/uL (0.30-0.80); Segmented Neut Absolute Manual 20.25 10^3/uL (1.4-6.5)
[2024-02-21 05:30] LABS: Alanine Aminotransferase 74 U/L (14-59); Albumin Globulin Ratio 0.6; Albumin Level 1.9 g/dL (3.4-5.0); Alkaline Phosphatase 109 U/L (46-116); Aspartate Amino Transferase 36 U/L (15-37); BUN Creatinine Ratio 26.4; Bilirubin Total 0.3 mg/dL (0.2-1.0); Calcium 7.7 mg/dL (8.5-10.1); Carbon Dioxide 25.7 mmol/L (21.0-32.0); Chloride 119 mmol/L (98-107); Estimated GFR (African America >60 (>=60 mL/min/1.73m^2); Estimated GFR (Non-African Ame 51 (>=60 mL/min/1.73m^2); Glucose 119 mg/dL (74-106); Total Protein 4.9 g/dL (6.4-8.2)
[2024-02-21 05:34] LABS: Potassium 2.7 mmol/L (3.5-5.1)
[2024-02-21 05:35] LABS: Sodium 153 mmol/L (136-145)
[2024-02-21 05:37] LABS: Troponin I High Sensitivity 57.4 pg/mL (4.0-51.3)
[2024-02-21] MEDS: LIOTHYRONINE SODIUM 5 MCG TABLET 10 MCG PO (05:38)
[2024-02-21] MEDS: LEVOTHYROXINE SODIUM 75 MCG TABLET PO (05:38)
--- NOTE | 2024-02-21 06:03 | PC.NURSE ---
Patient down to radiology for cxr.
--- NOTE | 2024-02-21 06:30 | XR_ITS ---
The [address] [address] Patient Name: JESSICA KIRKPATRICK MRN: [id number] date: 1950 Sex: F Assigned Patient Location: [place] Current Patient Location: [place] Accession/Order Number: [id number] Exam Date: 02/21/2024 06:05 Report Date: 02/21/2024 07:23 At the request of: SUMANTH PEARCE Procedure: XR chest 2V PROCEDURE: XR chest 2V DATE: 02/21/2024 6:05 AM EST COMPARISONS: 02/19/2024 CLINICAL INDICATION: 73 years Female pneumonia follow up FINDINGS: The heart is upper normal in size. Diffusely scattered patchy airspace disease and scattered increased interstitial markings again identified, similar to previous exam. Blunting of the costophrenic angles, right greater than left is again identified. No evidence of pneumothorax. Right arm PICC line is in stable position. XR/XR chest 2V IMPRESSION: Chest is stable from previous exam done 2 days prior. Electronically authenticated by: MARCIAL TAYLOR Date: 02/21/2024 07:23
--- NOTE | 2024-02-21 08:05 | P.PN_ITS ---
Progress Note: Subjective Subjective Interval history: Patient awake alert and oriented Exam Constitutional Vital Signs, click to edit/add: Last Vital Signs Temp 98.0 F 02/21/24 07:50 Pulse 118 H 02/21/24 07:54 Resp 18 02/21/24 07:50 BP 124/78 02/21/24 07:50 Pulse Ox 92 L 02/21/24 07:50 O2 Del Method Room Air 02/21/24 07:50 O2 Flow Rate 1 02/19/24 16:11 Documenting provider has reviewed patient's vital signs: yes Common normals: no apparent distress (Definitely seems more frustrated today) Chest Common normals: inspection of chest normal Respiratory Common normals: normal respiratory effort, no retractions and no use of accessory muscles Auscultation: rhonchi (Improved with better air exchange) Cardio Common normals: regular rhythm; irregular rate Rate: tachycardic (Still tacky but improved) Progress Note: Objective Labs Labs: Short CBC 02/21/24 Range/Units 04:42 WBC 22.5 H (4.0-11.0) 10^3/uL Hgb 8.6 L (12.0-16.0) g/dL Hct 26.5 L (36.0-48.0) % Plt Count 190 (150-450) 10^3/uL BMP 02/21/24 04:42 Sodium 153 H Potassium 2.7 L* Chloride 119 H Carbon Dioxide 25.7 BUN 28.0 H Creatinine 1.06 H Glucose 119 H Calcium 7.7 L Liver Function 02/21/24 Range/Units 04:42 Total Bilirubin 0.3 (0.2-1.0) mg/dL AST 36 (15-37) U/L ALT 74 H (14-59) U/L Alkaline Phosphatase 109 (46-116) U/L Albumin 1.9 L (3.4-5.0) g/dL Progress Note: A&P Assessment and Plan (1) Hypothyroidism: (2) Acute kidney injury: (3) Leukocytosis: (4) Acute urinary retention: (5) Multifocal pneumonia: (6) COPD (chronic obstructive pulmonary disease): (7) Depression: Plan Admission findings: Sinus tachycardia, respiratory distress, hypothermia, acute hypoxia with O2 sat of 86%, significant leukocytosis over 25,000, thrombocythemia, coagulopathy, bandemia, metabolic acidosis with hypernatremia, hypokalemia and acute kidney injury stage II(baseline creatinine 0.79, creatinine admission of 2.00 is 253% above baseline) resulting in sepsis and due to multifocal pneumonia causing acute exacerbation of COPD Sepsis due to multifocal pneumonia causing acute exacerbation of COPD-white blood cell count improving after changing antibiotics yesterday, maintain current treatment plan Dehydration resulting in acute kidney injury stage II as outlined above- creatinines been pretty stable, needs to continue with D5W for hypernatremia- maintain IV fluid resuscitation secondary to the hypernatremia, repeat labs later today consider saline lock at that time Altered mental status-Zyprexa at nighttime seems to be helping sleeping Elevated troponin-echo pending, troponin trending down Rhabdomyolysis complicating the acute kidney injury stage II-numbers are co ntinuing to improve, will hold off on further testing Coagulopathy secondary to the sepsis-check on labs Bujzqyfcdmw-tdzebulzru-icen need IV today, repeating IV and increase oral today Hypermagnesemia -resolved Thrombocythemia-resolved Hypernatremia secondary to the acute kidney injury stage II-finally responding to D5W and sugars are fairly stable, will maintain that at current rate, repeat later today Hyperglycemia-insulin sliding scale, fairly stable Difficulty swallowing and hoarseness-speech therapy cleared for swallowing, thin liquids mechanical soft diet Elevated liver function test-this is likely secondary to passive congestion from the significant dehydration.-Repeat labs in a.m., CT scan unremarkable for liver evaluation Hypothyroidism-T3 is low so we will increase Cytomel Acute blood loss anemia-stable hemoglobin Insomnia-restart amitriptyline and add Zyprexa Severe PCM - diet supplement Hoarseness, dysphagia - Speech therapy eval-see above Altered mental status and generalized weakness-this is much improved from admission. Discussed with secondary social studies teacher and family about plan of care Admission status: Patient with acute rhabdomyolysis and metabolic acidosis secondary to multifocal pneumonia resulting in sepsis and acute kidney injury stage II, medically necessary treatment will span 2 midnights. Inpatient status. Urinary Catheter Management Urinary Catheter Management Urethral: Cath placed during this visit: yes, but has since been removed by the nurse Urethral indwelling: Yes Insertion date: 02/17/24 Insertion time: 16:21 Removal date: 02/20/24 Removal time: 11:58
[2024-02-21] MEDS: DEXTROSE 5 % IN WATER 1,000 ML 50 ML IV (08:21)
[2024-02-21] MEDS: POTASSIUM CHLORIDE 40 MEQ in 0.9 % SODIUM CHLORIDE 250 ML 67.5 MEQ IV (08:21)
--- NOTE | 2024-02-21 08:32 | CM.NOTE ---
2nd Important Message From Medicare Notice discussed with pt, no questions or concerns.
--- NOTE | 2024-02-21 10:07 | SWNOTE1 ---
JOHNNIE spoke to pt's sister this morning. Hannah spoke with pt last night and pt did not seem interested in living with her step mother and step sister. SW to talk with pt. JOHNNIE advised that there is a chance pt will be discharged today. JOHNNIE spoke with pt and she wants to go to rehab at [facility] for the time being. Doctor did as SW if they could do IV's there? JOHNNIE asked Hawa at [facility] if IV's would interfere with precert. She sent message back and said that would be fine and they will update insurance on first review.
[2024-02-21] MEDS: PROSTAT 15 GM PROTEIN/100 CAL 30 ML LIQUID PACKET PO (10:18)
[2024-02-21] MEDS: CEFTAZIDIME 2,000 MG in 0.9 % SODIUM CHLORIDE 100 ML 200 MG IV (10:18)
[2024-02-21] MEDS: ENSURE ORIGINAL 237 ML BOTTLE PO (10:18)
[2024-02-21] MEDS: POTASSIUM CHLORIDE 10 MEQ ER TABLET 20 MEQ PO ×2 (10:19→13:42)
[2024-02-21] MEDS: L. ACIDOPHILUS/L.BULGARICUS 1 PACKET GRAN.PACK PO (10:19)
[2024-02-21] MEDS: METOPROLOL TARTRATE 25 MG TABLET PO (10:19)
[2024-02-21] MEDS: OLANZapine 5 MG TABLET 2.5 MG PO (10:19)
[2024-02-21] MEDS: 0.9 % SODIUM CHLORIDE 250 ML 10 ML IV (10:29)
--- NOTE | 2024-02-21 10:36 | PT.DAILY ---
Physical Therapy Daily Note PT Daily Note/Assess Start: 02/18/24 07:39 Freq: Status: Active Protocol: Document 02/21/24 10:30 LINDEN (Rec: 02/21/24 10:36 LINDEN [id number]) Physical Therapy Daily Note/Assessment Time In/Time Out Time In 09:48 Time Out 10:01 Pain In Pain N/A Pain Out Pain N/A Subjective Subjective Pt supine upon arrival. Agreeable to PT. Denies pain currently. Therapeutic Exercise Time Therapeutic Exercise 4 Minutes (minutes) Therapeutic Exercise 0 Units Therapeutic Exercise Treatment Therapeutic Exercise pt sits EOB to perform bilat LE strengthening ex 10x ea Treatment - able to maintain balance unsupported. Therapeutic Activity Time Therapeutic Activity 8 Minutes (minutes) Therapeutic Activity 1 Units Therapeutic Activity Treatment Bed Mobility Ability Standby Assistance Chair Transfer Contact Guard Assist Ability Therapeutic Activity Pt performs supine>transfers with increased time but no Comments outside assistance. Sits EOB for seated ex without LOB . Pt sit>stand CGA for safety and amb 80' with RW, CGA and assist for IV pole. Pt needs multiple vc to slow down on turns, avoid crossing feet with amb, and to be cautious off beach and furniture with her RW. Pt lacks safety awareness. remains in BS chair upon completion with call light within reach and chair alarm activiated . Total Physical Therapy Time Total Therapy 12 Minutes Total Physical 1 Therapy Units Summary Daily Note Summary Improved gait endurance/duration but cont to lack safety awareness. Would cont to recommend SNF at [place] to regain strength, balance, and safety awareness to avoid falls at home.
--- NOTE | 2024-02-21 10:37 | SWNOTE1 ---
updates sent to Hawa at [facility]. Possible discharge later today after her labs at 1:00pm.
[2024-02-21] MEDS: BUDESONIDE 0.5 MG/2 ML AMPULE NEB IH (10:45)
[2024-02-21 11:39] LABS: Glucometer 149 mg/dL (74-106)
[2024-02-21] MEDS: LINEZOLID IN DEXTROSE 5% 600 MG/300 ML PIGGYBACK 300 MG IV (12:06)
--- NOTE | 2024-02-21 12:48 | SWNOTE1 ---
SW spoke to pt's sister over the phone while in pt's room. Pt was voicing to nursing she was not going to [facility]. After speaking with sister again who spoke with step mom and step sister they have decided pt needs to be stronger to go to someones home. Pt in agreement and still alright with going to [facility].
[2024-02-21 13:36] LABS: Hematocrit 28.3 % (36.0-48.0); Hemoglobin 9.1 g/dL (12.0-16.0); Mean Corpuscular HGB Conc 32.2 g/dL (29.9-35.2); Mean Corpuscular Hemoglobin 26.6 pg (26.7-34.0); Mean Corpuscular Volume 82.7 fL (81.0-99.0); Mean Platelet Volume 10.2 fL (9.5-13.5); Platelet Count 174 10^3/uL (150-450); Red Blood Count 3.42 10^6/uL (4.20-5.40); Red Cell Distribution Width 17.6 % (11.0-15.0); White Blood Count 22.5 10^3/uL (4.0-11.0)
[2024-02-21 13:49] LABS: Anion Gap 13.3; BUN Creatinine Ratio 25.8; Calcium 7.5 mg/dL (8.5-10.1); Chloride 117 mmol/L (98-107); Estimated GFR (African America >60 (>=60 mL/min/1.73m^2); Estimated GFR (Non-African Ame 56 (>=60 mL/min/1.73m^2); Glucose 240 mg/dL (74-106); Potassium 3.3 mmol/L (3.5-5.1); Sodium 150 mmol/L (136-145)
[2024-02-21 14:04] LABS: Monocytes Absolute Manual 0.45 10^3/uL (0.30-0.80); Segmented Neut Absolute Manual 21.15 10^3/uL (1.4-6.5)
--- NOTE | 2024-02-21 15:05 | P.DS_ITS ---
DS: Providers Provider Date of admission: 02/17/24 16:56 Primary care physician: Masuod Taylor MD Consults: 02/17/24 18:29 Occupational Therapy Eval and Treat Routine Reason for consultation: Only if needed for Rehab Has provider been notified: No Physical Therapy Eval and Treat Routine Reason for consultation: Eval and Treat Has provider been notified: No 02/17/24 19:03 Speech Therapy Eval and Treat Routine Reason for consultation: difficulty swallowing Has provider been notified: No 02/17/24 19:05 Consult to Melt Supervisor Routine Reason for consult:: Care Home 02/18/24 07:52 Consult to PICC Line RN Routine Consulting Provider: Masoud Taylor Reason for consultation: 2 lumen midline or picc Has provider been notified: No DS: Diagnosis Discharge Diagnosis (1) Hypothyroidism: (2) Acute kidney injury: (3) Leukocytosis: (4) Acute urinary retention: (5) Multifocal pneumonia: (6) COPD (chronic obstructive pulmonary disease): (7) Depression: Plan Admission findings: Sinus tachycardia, respiratory distress, hypothermia, acute hypoxia with O2 sat of 86%, significant leukocytosis over 25,000, thrombocythemia, coagulopathy, bandemia, metabolic acidosis with hypernatremia, hypokalemia and acute kidney injury stage II(baseline creatinine 0.79, creatinine admission of 2.00 is 253% above baseline) resulting in sepsis and due to multifocal pneumonia causing acute exacerbation of COPD Sepsis due to multifocal pneumonia causing acute exacerbation of COPD-white blood cell count improving after changing antibiotics yesterday, maintain current treatment plan Dehydration resulting in acute kidney injury stage II as outlined above- creatinines been pretty stable, needs to continue with D5W for hypernatremia- maintain IV fluid resuscitation secondary to the hypernatremia, repeat labs ami bacon today consider saline lock at that time Altered mental status-Zyprexa at nighttime seems to be helping sleeping Elevated troponin-echo pending, troponin trending down Rhabdomyolysis complicating the acute kidney injury stage II-numbers are continuing to improve, will hold off on further testing Coagulopathy secondary to the sepsis-check on labs Kxizdmkzoly-nlzewhfrya-gxjk need IV today, repeating IV and increase oral today Hypermagnesemia -resolved Thrombocythemia-resolved Hypernatremia secondary to the acute kidney injury stage II-finally responding to D5W and sugars are fairly stable, will maintain that at current rate, repeat later today Hyperglycemia-insulin sliding scale, fairly stable Difficulty swallowing and hoarseness-speech therapy cleared for swallowing, thin liquids mechanical soft diet Elevated liver function test-this is likely secondary to passive congestion from the significant dehydration.-Repeat labs in a.m., CT scan unremarkable for liver evaluation Hypothyroidism-T3 is low so we will increase Cytomel Acute blood loss anemia-stable hemoglobin Insomnia-restart amitriptyline and add Zyprexa Severe PCM - diet supplement Hoarseness, dysphagia - Speech therapy eval-see above Altered mental status and generalized weakness-this is much improved from admission. Discussed with social work coordinator and family about plan of care Admission status: Patient with acute rhabdomyolysis and metabolic acidosis secondary to multifocal pneumonia resulting in sepsis and acute kidney injury stage II, medically necessary treatment will span 2 midnights. Inpatient status. DS: Summary Hospital Course Hospital Course: Patient was seen evaluated after being found on the floor, likely 5 days, lip was not however, in ER found to have acute kidney injury, dehydration with hypernatremia, hypokalemia, hypomagnesemia, acute rhabdomyolysis, was very very difficult to improve, given fluids over the first 24 hours did not improve her sodium actually got worse, changed to half normal, continue to elevate, changed to D5 despite being a diabetic, her sugars maintain pretty steady with the sliding scale in the D5W, her sodium was improved over the last 48 hours, she is 5 points above normal at 155, but that is much improved, she is much more awake and alert now as well, white blood cell count significantly elevated up until today, it is still elevated but much improved from previous after changing antibiotics, would maintain current IV antibiotics for 5 additional days, cultures may be back by that time for additional changes, at this point I do not feel she needs any further fluid resuscitation, sodium likely to return to baseline continue with oral supplementation of potassium. Medications see list. Cleared for discharge to rehab Status at Discharge Overall status at discharge: patient is not back to baseline Time Spent with Patient Time attestation: Total time spent providing and/or coordinating discharge services: Time spent: greater than 30 minutes Exam Constitutional Vital Signs, click to edit/add: Last Vital Signs Temp 98.0 F 02/21/24 11:51 Pulse 96 H 02/21/24 14:00 Resp 18 02/21/24 11:51 BP 110/70 02/21/24 11:51 Pulse Ox 93 L 02/21/24 11:51 O2 Del Method Room Air 02/21/24 11:51 O2 Flow Rate 1 02/19/24 16:11 Documenting provider has reviewed patient's vital signs: yes Common normals: no apparent distress (Definitely seems more frustrated today) Chest Common normals: inspection of chest normal Respiratory Common normals: normal respiratory effort, no retractions and no use of accessory muscles Auscultation: rhonchi (Improved with better air exchange) Cardio Common normals: regular rhythm; irregular rate Rate: tachycardic (Still tacky but improved) DS: Data Data Completed and Pending Labs on day of discharge: Labs from last 24 hours 02/21/24 02/21/24 02/21/24 13:30 11:37 04:42 WBC 22.5 H 22.5 H RBC 3.42 L 3.23 L Hgb 9.1 L 8.6 L Hct 28.3 L 26.5 L MCV 82.7 82.0 MCH 26.6 L 26.6 L MCHC 32.2 32.5 RDW 17.6 H 17.2 H Plt Count 174 190 MPV 10.2 10.6 Seg Neuts % (Manual) 94.0 H 90.0 H Band Neutrophils % 1.0 Lymphocytes % (Manual) 4.0 L 4.0 L Monocytes % (Manual) 2.0 5.0 Eosinophils % (Manual) 0.0 L 0.0 L Basophils % (Manual) 0.0 L 0.0 L Neutrophils # (Manual) 21.15 H 20.25 H Band Neutrophils # 0.2 Lymphocytes # (Manual) 0.90 L 0.90 L Monocytes # (Manual) 0.45 1.12 H Eosinophils # (Manual) 0.00 0.00 Basophils # (Manual) 0.00 0.00 Sodium 150 H 153 H Potassium 3.3 L 2.7 L* Chloride 117 H 119 H Carbon Dioxide 23.0 25.7 Anion Gap 13.3 11.0 BUN 25.0 H 28.0 H Creatinine 0.97 1.06 H Est GFR ( Amer) >60 >60 Est GFR (Non-Af Amer) 56 L 51 L BUN/Creatinine Ratio 25.8 26.4 Glucose 240 H 119 H Calcium 7.5 L 7.7 L Total Bilirubin 0.3 AST 36 ALT 74 H Alkaline Phosphatase 109 Troponin I High Sens 57.4 H* Total Protein 4.9 L Albumin 1.9 L Globulin 3.0 Albumin/Globulin Ratio 0.6 Stool Occult Blood POC Glucose 149 H 02/21/24 02/20/24 02/20/24 03:45 21:00 15:56 WBC RBC Hgb Hct MCV MCH MCHC RDW Plt Count MPV Seg Neuts % (Manual) Band Neutrophils % Lymphocytes % (Manual) Monocytes % (Manual) Eosinophils % (Manual) Basophils % (Manual) Neutrophils # (Manual) Band Neutrophils # Lymphocytes # (Manual) Monocytes # (Manual) Eosinophils # (Manual) Basophils # (Manual) Sodium Potassium Chloride Carbon Dioxide Anion Gap BUN Creatinine Est GFR ( Amer) Est GFR (Non-Af Amer) BUN/Creatinine Ratio Glucose Calcium Total Bilirubin AST ALT Alkaline Phosphatase Troponin I High Sens Total Protein Albumin Globulin Albumin/Globulin Ratio Stool Occult Blood Negative POC Glucose 161 H 133 H Preliminary micro results at discharge 02/17/24 13:48 Blood Culture Result 1 - Preliminary Blood - Left Antecubital NO GROWTH AT 36-48 HOURS. FINAL TO FOLLOW. 02/17/24 13:51 Blood Culture Result 2 - Preliminary Blood - Left Hand NO GROWTH AT 36-48 HOURS. FINAL TO FOLLOW. Discharge Plan Discharge Disposition: Xfer SNF Condition: Fair Discharge Medications: New metronidazole in NaCl (iso-os) 500 mg/100 mL Piggyback 500 mg IV Q6H Qty: 2400 0RF liothyronine 5 mcg Tablet 10 mcg PO DAILY@0600 Qty: 60 11RF linezolid in dextrose 5% 600 mg/300 mL Piggyback 600 mg IV Q12H Qty: 3000 0RF Ensure Original 0.04-1.05 gram-kcal/mL Liquid 1 ea PO BID Qty: 5688 0RF Ceftazidime [Fortaz] 2000 MG 0.9 % Sodium Chloride [Sodium Chloride 0.9% 100 ml] 100 ML 200 mls/hr IV Q8H Ordered By: Masoud Taylor MD Last Taken: Unknown olanzapine 5 mg Tablet 5 mg PO QHS Qty: 30 11RF metoprolol tartrate 25 mg Tablet 25 mg PO BID Qty: 60 11RF Continued albuterol sulfate 90 mcg/actuation HFA aerosol inhaler 2 inh INHALATION Q4H PRN (Reason: shortness of breath or wheezing) Trelegy Ellipta 100-62.5-25 mcg blister with device 1 inh INHALATION Q24H levothyroxine 75 mcg tablet 75 mcg PO .QD Discontinued amitriptyline 150 mg tablet 150 mg PO .qhs Print Language: 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
--- NOTE | 2024-02-21 15:46 | SWNOTE1 ---
Pt is able to be dc to [facility] today skilled. JOHNNIE completed HENS online and faxed over dc med rec and dc summary to Hawa at [facility]. JOHNNIE called trips but they did not have any openings. JOHNNIE spoke with pt and she does feel her sister can transport. JOHNNIE spoke to nurse and spoke with pt's sister Hannah in regards to transport. Hannah is able to transport and she will be here within the hour to take her. JOHNNIE notified Hawa at [facility] of time as well. JOHNNIE took packet to the floor.
== END 2024-02-21 16:24 | DRG 871 ==
LOC: ER 15:55 → MS 17:00
PROVIDERS: Physician Assistant; Admitting Provider Family Medicine; Emergency Provider Emergency Medicine; PCP Family Medicine; Visit Provider Family Medicine
DX: A41.9 Sepsis, unspecified organism (principal); E43 Unspecified severe protein-calorie malnutrition; J18.9 Pneumonia, unspecified organism; N17.9 Acute kidney failure, unspecified; M62.82 Rhabdomyolysis; E87.0 Hyperosmolality and hypernatremia; J44.0 Chronic obstructive pulmonary disease with (acute) lower respiratory infection; J44.1 Chronic obstructive pulmonary disease with (acute) exacerbation; D68.9 Coagulation defect, unspecified; E87.20 Acidosis, unspecified; D62 Acute posthemorrhagic anemia; D50.9 Iron deficiency anemia, unspecified; D75.839 Thrombocytosis, unspecified; E03.9 Hypothyroidism, unspecified; E83.41 Hypermagnesemia; E86.0 Dehydration; E87.6 Hypokalemia; F32.A Depression, unspecified; G47.00 Insomnia, unspecified; S40.012A Contusion of left shoulder, initial encounter; S30.0XXA Contusion of lower back and pelvis, initial encounter; R13.10 Dysphagia, unspecified; R06.03 Acute respiratory distress; R09.02 Hypoxemia; R33.9 Retention of urine, unspecified; R68.0 Hypothermia, not associated with low environmental temperature; R73.9 Hyperglycemia, unspecified; W18.30XA Fall on same level, unspecified, initial encounter; Y92.009 Unspecified place in unspecified non-institutional (private) residence as the place of occurrence of the external cause; Z68.20 Body mass index [BMI] 20.0-20.9, adult; Z91.81 History of falling; Z79.890 Hormone replacement therapy; Z79.899 Other long term (current) drug therapy
CPT/HCPCS: 36415; 36430; 36569; 36592; 51702; 70450; 71045; 71046; 71250; 72125; 74176; 80048; 80053; 81001; 82140; 82550; 82553; 82800; 82948; 83605; 83735; 83874; 83880; 84439; 84443; 84481; 84484; 85007; 85025; 85027; 85610; 85730; 86850; 86900; 86901; 86923; 87040; 87070; 87804; 87811; 92526; 92610; 93005; 93306; 94640; 94667; 94668; 94761; 96361; 96374; 97161; 97165; 97530; 97535; 99285; C1887; G0328; J0713; J1200; J1836; J2020; J2543; J2919; J3475; J3480; P9016

== ENCOUNTER 2024-02-29 13:45 | Outpatient (REF) | payer MEDICARE, SELFPAY ==
--- OUTSIDE RECORDS SUMMARY | 2024-02-29 13:52 | XMS_ITS | CCD ---
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 Heart disease: Brother. Ovarian cancer: Mother. [facility] Comment on above: Result Comment: Elec tronically Signed By: JAS CONKLIN, Joann Ferrera\.br\Date and Time Signed: 06/27/23 14:41 EDT Formson 06-26-2023 Forms [id number] [facility] Ambulatory Visit Summaryon 0 06-25-2023 Ambulatory [...] for choosing us for your care. Normal [facility] Operative Reporton 4 Operative Report [id number] Normal [facility] CALCIUMon 04-23-2022 Calcium [Mass/Vol] 8.8 mg/dL Normal 8.5-10.1 [facility] Comment on above: Performed By: #### T 4, CMP, FT3, TSH, LIPID #### [facility] [address] [address] [address] Juan M Soria CREATININEon 04-23-2022 Creatinine [Mass/Vol] 0.77 mg/dL Normal 0.55-1.[address] [facility] Comment on above: Performed By: #### T 4, CMP, FT3, TSH, LIPID #### [facility] [address] [address] [address] Juan M Soria EGFR-AF CUBAN >60 Normal >=60 [facility] Comment on above: Performed By: #### T 4, CMP, FT3, TSH, LIPID #### [facility] [address] [address] [address] Juan M Soria EGFR-NON AF CUBAN >60 Normal >=[address] [facility] Comment on above: Performed By: #### T 4, CMP, FT3, TSH, LIPID #### [facility] [address] [address] [address] Juan M Soria XR DEXA BONE [...] YENY PEARCE Date: 2022-04-17 12:02 Normal [facility] CBC AUTO DIFFon 10-31-2021 BASO # 0.1 103/ul Normal 0.0-0.[address] [facility] Comment on above: Performed By: #### C BC #### [facility] [address] [address] [address] Juan M Soria Basophils/100 WBC (Bld) 0.8 % Normal 0.2-2.[address] [facility] Comment on above: Performed By: #### C BC #### [facility] [id number] Juan M Soria EO # 0.2 103/ul Normal 0.0-0.7 [facility] Comment on above: Performed By: #### C BC #### [facility] [address] [address] [address] Juan M Soria Eosinophils/100 WBC (Bld) 3.6 % Normal 0.9-7.0 [facility] Comment on above: Performed By: #### C BC #### [facility] [address] [place] [address] Dr. Juan M Soria Erythrocyte distribution width (RBC) [Ratio] 14.9 % Normal 11.0-15.0 [facility] Comment on above: Performed By: #### C BC #### [facility] [address] [place] [address] Dr. Juan M Soria Hematocrit (Bld) [Volume fraction] 39.7 % Normal 36.0-48.0 [facility] Comment on above: Performed By: #### C BC #### [facility] [address] [place] [address] Dr. Juan M Soria Hemoglobin (Bld) [Mass/Vol] 12.7 g/dL Normal 12.0-16.0 [facility] Comment on above: Performed By: #### C BC #### [facility] [address] [place] [address] Dr. Juan M Soria IG # 0.01 10e3/ul Normal 0.00-0.03 [facility] Comment on above: Performed By: #### C BC #### [facility] [address] [place] [address] Dr. Juan M Soria IG % 0.2 % Normal 0.0-0.5 [facility] Comment on above: Performed By: #### C BC #### [facility] [address] [place] [address] Dr. Juan M Soria LYMPH # 1.2 103/ul Normal 1.2-3.8 [facility] Comment on above: Performed By: #### C BC #### [facility] [address] [place] [address] Dr. Juan M Soria Lymphocytes/100 WBC (Bld) 19.8 % Critically low 20.5-60.0 [facility] Comment on above: Performed By: #### C BC #### [facility] [address] [place] [address] Dr. Juan M Soria MANUAL DIFF REQ NO Normal [facility] Comment on above: Performed By: #### C BC #### [facility] [address] [address] [address] Juan M Soria MCH (RBC) [Entitic mass] 27.0 pg Normal 26.7-34.0 [facility] Comment on above: Performed By: #### C BC #### [facility] [address] [place] [address] Dr. Juan M Soria MCHC (RBC) [Mass/Vol] 32.0 g/dL Normal 29.9-35.[address] [facility] Comment on above: Performed By: #### C BC #### [facility] [address] [place] [address] Dr. Juan M Soria MCV (RBC) [Entitic vol] 84.3 fL Normal 81.0-99.0 [facility] Comment on above: Performed By: #### C BC #### [facility] [address] [place] [address] Dr. Juan M Soria MONO # 0.5 103/ul Normal 0.3-0.[address] [facility] Comment on above: Performed By: #### C BC #### [facility] [address] [place] [address] Dr. Juan M Soria Monocytes/100 WBC (Bld) 8.1 % Normal 1.7-12.0 [facility] Comment on above: Performed By: #### C BC #### [facility] [address] [place] [address] Dr. Juan M Soria NEUT # 4.0 103/ul Normal 1.4-6.[address] [facility] Comment on above: Performed By: #### C BC #### [facility] [address] [place] [address] Dr. Juan M Soria Neutrophils/100 WBC (Bld) 67.5 % Normal 43.0-75.[address] [facility] Comment on above: Performed By: #### C BC #### [facility] [address] [place] [address] Dr. Juan M Soria Platelet mean volume (Bld) [Entitic vol] 9.3 fL Critically low 9.5-13.[address] [facility] Comment on above: Performed By: #### C BC #### [facility] [address] [address] [address] Juan M Soria PLT 245 103/ul Normal 150-[address] [facility] Comment on above: Performed By: #### C BC #### [facility] [address] [place] [address] Dr. Juan M Soria RBC 4.71 106/ul Normal 4.20-5.[address] [facility] Comment on above: Performed By: #### C BC #### [facility] [address] [place] [address] Dr. Juan M Soria WBC 5.9 103/ul Normal 4.0-11.[address] [facility] Comment on above: Performed By: #### C BC #### [facility] [address] [place] [address] Dr. Juan M Soira FERRITINon 10-31-2021 Ferritin [Mass/Vol] 47.0 ng/mL Normal 8.0-252.0 [facility] Comment on above: Performed By: #### T 4, CMP, FT3, TSH, LIPID #### [facility] [address] [place] [address] Dr. Juan M Soria IRONon 10-31-2021 Iron [Mass/Vol] 81.0 ug/dL Normal 50.0-170.0 [facility] Comment on above: Performed By: #### I CORINA, FERR #### [facility] [address] [place] [address] Dr. Juan M Soria XR COLONon 08-02-2021 XR COLON EXAMINATION: XR COLO N AIR CONTR., XR COLON HISTORY: Iron deficiency anemia COMPARISON: No relevant comparison available. FLUOROSCOPY TIME: Fluoro time measures 3.9 minutes and 22 images were obtained. TECHNIQUE: An air contrast barium enema examination was performed in the usual manner. 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 Standard level fluoroscopic mode of operation utilized. FINDINGS: COLON: Small diverticula scattered along the length of colon, most frequent involving the sigmoid colon. No mass, stricture, or appreciable mucosal irregularity. OTHER: Negative. IMPRESSION: 1. Long, redundant colon without appreciable mass, stricture, or suspicious findings. 2. Mild diverticulosis. Electronically authenticated by: YENY PEARCE Date: 2021-08-02 15:06 Normal [facility] OCC BLD IMMUNO SCREENon OCCULT BLOOD Negative Normal NEGATIVE [facility] Comment on above: Performed By: #### T 4, CMP, FT3, TSH, LIPID #### [facility] [address] [place] [address] Dr. Juan M Soria CBC AUTO DIFFon 06-13-2021 BASO # 0.0 103/ul Normal 0.0-0.[address] [facility] Comment on above: Performed By: #### T 4, CMP, FT3, TSH, LIPID #### [facility] [address] [place] [address] Dr. Juan M Soria Basophils/100 WBC (Bld) 0.6 % Normal 0.2-2.[address] [facility] Comment on above: Performed By: #### T 4, CMP, FT3, TSH, LIPID #### [facility] [address] [place] [address] Dr. Juan M Soria EO # 0.3 103/ul Normal 0.0-0.[address] [facility] Comment on above: Performed By: #### T 4, CMP, FT3, TSH, LIPID #### [facility] [address] [place] [address] Dr. Juan M Soria Eosinophils/100 WBC (Bld) 3.8 % Normal 0.9-7.[address] [facility] Comment on above: Performed By: #### T 4, CMP, FT3, TSH, LIPID #### [facility] [address] [place] [address] Dr. Juan M Soria Erythrocyte distribution width (RBC) [Ratio] 16.6 % Critically high 11.0-15.[address] [facility] Comment on above: Performed By: #### T 4, CMP, FT3, TSH, LIPID #### [facility] [address] [place] [address] Dr. Juan M Soria Hematocrit (Bld) [Volume fraction] 30.7 % Critically low 36.0-48.[address] [facility] Comment on above: Performed By: #### T 4, CMP, FT3, TSH, LIPID #### [facility] [address] [place] [address] Dr. Juan M Soria Hemoglobin (Bld) [Mass/Vol] 9.1 g/dL Critically low 12.0-16.0 [facility] Comment on above: Performed By: #### T 4, CMP, FT3, TSH, LIPID #### [facility] [address] [place] [address] Dr. Juan M Soria IG # 0.03 10e3/ul Normal 0.00-0.[address] [facility] Comment on above: Performed By: #### T 4, CMP, FT3, TSH, LIPID #### [facility] [address] [place] [address] Dr. Juan M Soria IG % 0.5 % Normal 0.0-0.5 [facility] Comment on above: Performed By: #### T 4, CMP, FT3, TSH, LIPID #### [facility] [address] [place] [address] Dr. Juan M Soria LYMPH # 1.1 103/ul Critically low 1.2-3.[address] [facility] Comment on above: Performed By: #### T 4, CMP, FT3, TSH, LIPID #### [facility] [address] [place] [address] Dr. Juan M Soria Lymphocytes/100 WBC (Bld) 16.8 % Critically low 20.5-60.[address] [facility] Comment on above: Performed By: #### T 4, CMP, FT3, TSH, LIPID #### [facility] [address] [place] [address] Dr. Juan M Soria MANUAL DIFF REQ NO Normal [facility] Comment on above: Performed By: #### T 4, CMP, FT3, TSH, LIPID #### [facility] [address] [place] [address] Dr. Juan M Soria MCH (RBC) [Entitic mass] 22.4 pg Critically low 26.7-34.[address] [facility] Comment on above: Performed By: #### T 4, CMP, FT3, TSH, LIPID #### [facility] [address] [place] [address] Dr. Juan M Soria MCHC (RBC) [Mass/Vol] 29.6 g/dL Critically low 29.9-35.[address] [facility] Comment on above: Performed By: #### T 4, CMP, FT3, TSH, LIPID #### [facility] [address] [place] [address] Dr. Juan M Soria MCV (RBC) [Entitic vol] 75.4 fL Critically low 81.0-99.[address] [facility] Comment on above: Performed By: #### T 4, CMP, FT3, TSH, LIPID #### [facility] [address] [place] [address] Dr. Juan M Soria MONO # 0.4 103/ul Normal 0.3-0.[address] [facility] Comment on above: Performed By: #### T 4, CMP, FT3, TSH, LIPID #### [facility] [address] [place] [address] Dr. Juan M Soria Monocytes/100 WBC (Bld) 5.9 % Normal 1.7-12.[address] [facility] Comment on above: Performed By: #### T 4, CMP, FT3, TSH, LIPID #### [facility] [address] [place] [address] Dr. Juan M Soria NEUT # 4.8 103/ul Normal 1.4-6.[address] [facility] Comment on above: Performed By: #### T 4, CMP, FT3, TSH, LIPID #### [facility] [address] [place] [address] Dr. Juan M Soria Neutrophils/100 WBC (Bld) 72.4 % Normal 43.0-75.[address] [facility] Comment on above: Performed By: #### T 4, CMP, FT3, TSH, LIPID #### [facility] [address] [place] [address] Dr. Juan M Soria Platelet mean volume (Bld) [Entitic vol] 9.1 fL Critically low 9.5-13.[address] [facility] Comment on above: Performed By: #### T 4, CMP, FT3, TSH, LIPID #### [facility] [address] [place] [address] Dr. Juan M Soria PLT 289 103/ul Normal 150-[address] [facility] Comment on above: Performed By: #### T 4, CMP, FT3, TSH, LIPID #### [facility] [address] [place] [address] Dr. Juan M Soria RBC 4.07 106/ul Critically low 4.20-5.[address] [facility] Comment on above: Performed By: #### T 4, CMP, FT3, TSH, LIPID #### [facility] [address] [place] [address] Dr. Juan M Soria WBC 6.7 103/ul Normal 4.0-11.0 [facility] Comment on above: Performed By: #### T 4, CMP, FT3, TSH, LIPID #### [facility] [address] [place] [address] Dr. Juan M Soria FREE T3on 06-13-2021 FREE T3 2.54 pg/mlL Normal 2.18-3.98 [facility] Comment on above: Performed By: #### T 4, CMP, FT3, TSH, LIPID #### [facility] [address] [place] [address] Dr. Juan M Soria GLYCOHEMOGLOBIN A1Con 2021 ADA RECOMMENDATION SEE BELOW Normal [facility] Comment on above: Result Comment: ADA RECOMMENDED LIMIT 4.0 - 6.0 ADA THERAPEUTIC TARGET < 7.0 ACTION SUGGESTED > 7.0 Performed By: #### T 4, CMP, FT3, TSH, LIPID #### [facility] [address] [place] [address] Dr. Jua nM Soria Glucose [Mass/Vol] 123 mg/dL Normal [facility] Comment on above: Performed By: #### T 4, CMP, FT3, TSH, LIPID #### [facility] [address] [place] [address] Dr. Juan M Soria HbA1c (Bld) [Mass fraction] 5.9 % Normal 4.5-6.2 [facility] Comment on above: Performed By: #### T 4, CMP, FT3, TSH, LIPID #### [facility] [address] [address] [address] Juan M Soria LIPID PROFILEon 06-13-2021 CHOL-HDL RATIO NORM SEE BELOW Normal [facility] Comment on above: Result Comment: 3.3 - 4.4 LOW RISK 4.4 - 7.1 AVERAGE RISK 7.1 - 11.0 MODERATE RISK >11.0 HIGH RISK Performed By: #### T 4, CMP, FT3, TSH, LIPID #### [facility] [address] [address] [address] Juan M Soria Cholesterol [Mass/Vol] 249 mg/dL Critically high <=200 [facility] Comment on above: Performed By: #### T 4, CMP, FT3, TSH, LIPID #### [facility] [address] [address] [address] Juan M Soria Cholesterol in HDL [Mass/Vol] 132 mg/dL Critically high 40-60 [facility] Comment on above: Performed By: #### T 4, CMP, FT3, TSH, LIPID #### [facility] [address] [address] [address] Juan M Soria Cholesterol in LDL [Mass/Vol] 108.4 mg/dL Normal [facility] Comment on above: Performed By: #### T 4, CMP, FT3, TSH, LIPID #### [facility] [address] [address] [address] Juan M Soria Cholesterol.total/ Cholesterol in HDL [Mass ratio] 1.9 {ratio} Normal [facility] Comment on above: Performed By: #### T 4, CMP, FT3, TSH, LIPID #### [facility] [address] [address] [address] Juan M Soria HDL NORMAL > or = 60 mg/dl - LO W CARDIOVASCULAR RISK <40 mg/dl - HIGH CARDIOVASCULAR RISK Normal [facility] Comment on above: Performed By: #### T 4, CMP, FT3, TSH, LIPID #### [facility] [address] [place] [address] Dr. Juan M Soria LDL CALC NORMAL SEE BELOW Normal [facility] Comment on above: Result Comment: <100 mg/dl OPTIMAL 100 - 129 mg/dl NEAR OR ABOVE OPTIMAL 130 - 159 mg/dl BORDERLINE HIGH 160 - 189 mg/dl HIGH >190 mg/dl VERY HIGH Performed By: #### T 4, CMP, FT3, TSH, LIPID #### [facility] [address] [place] [address] Dr. Juan M Soria Triglyceride [Mass/Vol] 43 mg/dL Normal <=[address] [facility] Comment on above: Performed By: #### T 4, CMP, FT3, TSH, LIPID #### [facility] [address] [address] [address] Juan M Soria VLDL CALC 8.6 mg/dL Normal [facility] Comment on above: Performed By: #### T 4, CMP, FT3, TSH, LIPID #### [facility] [address] [place] [address] Dr. Juan M Soria PROF 14(COMP METB)on 022 Albumin [Mass/Vol] 3.6 g/dL Normal 3.4-5.0 [facility] Comment on above: Performed By: #### T 4, CMP, FT3, TSH, LIPID #### [facility] [address] [place] [address] Dr. Juan M Soria Albumin/Globulin [Mass ratio] 0.9 {ratio} Normal [facility] Comment on above: Performed By: #### T 4, CMP, FT3, TSH, LIPID #### [facility] [address] [place] [address] Dr. Juan M Soria ALP [Catalytic activity/Vol] 106 U/L Normal 46-[address] [facility] Comment on above: Performed By: #### T 4, CMP, FT3, TSH, LIPID #### [facility] [address] [place] [address] Dr. Juan M Soria ALT [Catalytic activity/Vol] 24 U/L Normal 14-[address] [facility] Comment on above: Performed By: #### T 4, CMP, FT3, TSH, LIPID #### [facility] [address] [place] [address] Dr. Juan M Soria Anion gap [Moles/Vol] 10.9 mmol/L Normal [facility] Comment on above: Performed By: #### T 4, CMP, FT3, TSH, LIPID #### [facility] [address] [place] [address] Dr. Juan M Soria AST [Catalytic activity/Vol] 18 U/L Normal 15-[address] [facility] Comment on above: Performed By: #### T 4, CMP, FT3, TSH, LIPID #### [facility] [address] [place] [address] Dr. Juan M Soria Bilirubin [Mass/Vol] 0.2 mg/dL Normal 0.2-1.[address] [facility] Comment on above: Performed By: #### T 4, CMP, FT3, TSH, LIPID #### [facility] [address] [place] [address] Dr. Juan M Soria Calcium [Mass/Vol] 8.7 mg/dL Normal 8.5-10.[address] [facility] Comment on above: Performed By: #### T 4, CMP, FT3, TSH, LIPID #### [facility] [address] [place] [address] Dr. Juan M Soria Chloride [Moles/Vol] 101 mmol/L Normal 98-[address] [facility] Comment on above: Performed By: #### T 4, CMP, FT3, TSH, LIPID #### [facility] [address] [place] [address] Dr. Juan M Soria CO2 [Moles/Vol] 25.9 mmol/L Normal 21.0-32.[address] [facility] Comment on above: Performed By: #### T 4, CMP, FT3, TSH, LIPID #### [facility] [address] [place] [address] Dr. Juan M Soria Creatinine [Mass/Vol] 0.83 mg/dL Normal 0.55-1.02 [facility] Comment on above: Performed By: #### T 4, CMP, FT3, TSH, LIPID #### [facility] [address] [place] [address] Dr. Juan M Soria EGFR-AF CUBAN >60 Normal >=60 [facility] Comment on above: Performed By: #### T 4, CMP, FT3, TSH, LIPID #### [facility] [address] [place] [address] Dr. Juan M Soria EGFR-NON AF CUBAN >60 Normal >=60 [facility] Comment on above: Performed By: #### T 4, CMP, FT3, TSH, LIPID #### [facility] [address] [place] [address] Dr. Juan M Soria Globulin (S) [Mass/Vol] 4.2 g/dL Normal [facility] Comment on above: Performed By: #### T 4, CMP, FT3, TSH, LIPID #### [facility] [address] [place] [address] Dr. Juan M Soria Glucose [Mass/Vol] 92 mg/dL Normal 74-106 [facility] Comment on above: Performed By: #### T 4, CMP, FT3, TSH, LIPID #### [facility] [address] [place] [address] Dr. Juan M Soria Potassium [Moles/Vol] 3.8 mmol/L Normal 3.5-5.1 [facility] Comment on above: Performed By: #### T 4, CMP, FT3, TSH, LIPID #### [facility] [address] [place] [address] Dr. Juan M Soria Protein [Mass/Vol] 7.8 g/dL Normal 6.1-8.2 [facility] Comment on above: Performed By: #### T 4, CMP, FT3, TSH, LIPID #### [facility] [address] [place] [address] Dr. Juan M Soria Sodium [Moles/Vol] 134 mmol/L Critically low 136-145 [facility] Comment on above: Performed By: #### T 4, CMP, FT3, TSH, LIPID #### [facility] [address] [place] [address] Dr. Juan M Soria Urea nitrogen [Mass/Vol] 10.0 mg/dL Normal 7.0-18.0 [facility] Comment on above: Performed By: #### T 4, CMP, FT3, TSH, LIPID #### [facility] [address] [place] [address] Dr. Juan M Soria Urea nitrogen/Creatinin e [Mass ratio] 12.0 mg/mg Normal [facility] Comment on above: Performed By: #### T 4, CMP, FT3, TSH, LIPID #### [facility] [address] [place] [address] Dr. Juan M Soria T4on 06-13-2021 T4 [Mass/Vol] 10.10 ug/dL Normal 4.80-13.90 [facility] Comment on above: Performed By: #### T 4, CMP, FT3, TSH, LIPID #### [facility] [address] [place] [address] Dr. Juan M Soria TSHon 06-13-2021 TSH Qn m[IU]/L Critically low 0.470-4.[address] [facility] Comment on above: Performed By: #### T 4, CMP, FT3, TSH, LIPID #### [facility] [address] [place] [address] Dr. Juan M Soria TSH RANGE SEE BELOW Normal [facility] Comment on above: Result Comment: <0.3 4 UIU/ml HYPERTHYROID 0.34-5.60 UIU/ml EUTHYROID >5.60 UIU/ml HYPOTHYROID Performed By: #### T 4, CMP, FT3, TSH, LIPID #### [facility] [address] [place] [address] Dr. Juan M Soria VITAMIN D 25 OHon 06-13-2021 VIT D 25-OH 42.1 ng/mL Normal [facility] Comment on above: Performed By: #### T 4, CMP, FT3, TSH, LIPID #### [facility] [address] [place] [address] Dr. Juan M Soria VIT D RANGES SEE BELOW Normal [facility] Comment on above: Result Comment: <20 ng/mL Vit D deficient 20 - <30 ng/mL Vit D insufficient 30 - 100 ng/mL Vit D sufficient >100 ng/mL Potential Toxicity Performed By: #### T 4, CMP, FT3, TSH, LIPID #### [facility] [address] [address] [address] Juan M Soria Vital Signs Date Time Vital Sign Value Performing Clinician Amy swanson 06-21-2021 15:25-0400 Blood Pressure Location Joann JAMAICAL [facility] 06-21-2021 15:25-0400 Diastolic blood pressure 66 mm[Hg] Joann JAMAICAL [facility] 06-21-2021 15:25-0400 Heart rate 96 /min Joann NILL [facility] [place] 06-21-2021 15:25-0400 Respiratory rate 16 /min Joann BERUMENL [facility] [place] 06-21-2021 15:25-0400 Systolic blood pressure 120 mm[Hg] Joann NILL [facility] Encounters Encounter Date Encounter Type Care Provider Facility Start: 06-25-2023 End: 06-25-2023 ambulatory Joann MARK Facility:[facility] Start: 06-25-2023 End: 06-25-2023 Patient encounter procedure Joann MARK [facility] Start: 06-12-2023 End: 06-12-2023 ambulatory Joann MARK Facility:[id number] Start: 04-23-2022 End: 04-23-2022 ambulatory [...] Medicare [id number] 2023 Medicare [id number] 1959 Medicare [id number] 1959 Unknown [id number] 1950 Unknown [id number] 2.16.84 [id number] 1950 Unknown [id number] 2.16.84 [id number] 1950 Unknown [id number] 2.16.84 [id number] 1950 Unknown [id number] 2.16.84 [id number] 1950 Unknown [id number] 2.16.84 [id number] 1950 Unknown [id number] 2.16.84 [id number] 1950 Unknown [id number] 2.16.8 [id number] 1950 Unknown [id number] 2.16.8 [id number] Social History Date Type Detail Facility Start: 06-21-2021 End: 06-25-2023 Tobacco smoking status Ex-smoker (finding) [facility] [place] Tobacco smoking status Smokeless tobacco user within last 30 days [facility] [place] Sex Assigned At Female [facility] [place] Functional Status Date Assessment Result Facility 06-25-2023 Functional Status N/A [facility] History and physical note 06-14-2023 Note Date & Type Note Facility 06-14-2023 Note [id number] #[id number] [facility] Clinical Note 08-02-2021 Note Date & [...] determined by barium enema results. CC: Sumanth Pearce M.D. [facility] Signed and Approved by: DR JOANN MARK . 08/03/2021 14:01:[address] [facility] Evaluation + Plan note Note Date & Type Note Facility Evaluation + Plan note No data available for this section [facility] [place] [facility] Discharge instructions Note Date & Type Note Facility Hospital Discharge instructions No data available for this section [facility] [place] Progress note Note Date & Type Note Facility Progress note No data available for this section Britta [facility] [place] Summary Purpose Family History No Family History Records Found No data available for this section No Family History Records Found Advance Directives No Advanced Directives Records FoundNo Advanced Directives Records Found Additional Source Comments INFORMATION SOURCE (unrecogn ized section and content) DATE CREATED AUTHOR 04/23/2022 [facility] DATE CREATED AUTHOR AUTHOR'S ORGANIZ ATION 08/03/2023 [facility] Patient Care team informatio n (unrecognized section and content) Personnel Name: Sumanth Pearce MD Address: Address: [address] [place] [address] FOR RECORDS PERTAINING TO PATIENTS WHO ARE [...] BE BASED ON THE PRIMARY CLINICAL RECORDS. [facility] [employer] provides no warranty or guarantee of the accuracy or completeness of information in this document.
[2024-02-29 15:16] LABS: Hematocrit 31.4 % (36.0-48.0); Hemoglobin 9.9 g/dL (12.0-16.0); Mean Corpuscular HGB Conc 31.5 g/dL (29.9-35.2); Mean Corpuscular Hemoglobin 26.1 pg (26.7-34.0); Mean Corpuscular Volume 82.8 fL (81.0-99.0); Mean Platelet Volume 10.7 fL (9.5-13.5); Platelet Count 550 10^3/uL (150-450); Red Blood Count 3.79 10^6/uL (4.20-5.40); Red Cell Distribution Width 19.5 % (11.0-15.0); White Blood Count 12.9 10^3/uL (4.0-11.0)
[2024-02-29 15:17] LABS: Bilirubin Urine NEGATIVE (NEGATIVE); Blood Urine NEGATIVE (NEGATIVE); Clarity Urine CLEAR (CLEAR); Color Urine LT. YELLOW (YELLOW); Glucose Urine UA NEGATIVE (NEGATIVE); Ketones Urine TRACE mg/dL (NEGATIVE); Leukocyte Esterase Urine NEGATIVE (NEGATIVE); Nitrite Urine NEGATIVE (NEGATIVE); Protein Urine TRACE mg/dL (NEG/TRACE); Specific Gravity Urine <=1.005 (1.005-1.025); Urobilinogen Urine 0.2 EU/dL (0.2-1.0); pH Urine 6.5 (5.0-9.0)
[2024-02-29 15:24] LABS: Anion Gap 6.4; BUN Creatinine Ratio 4.5; Calcium 7.7 mg/dL (8.5-10.1); Carbon Dioxide 33.8 mmol/L (21.0-32.0); Chloride 103 mmol/L (98-107); Estimated GFR (African America >60 (>=60 mL/min/1.73m^2); Estimated GFR (Non-African Ame >60 (>=60 mL/min/1.73m^2); Glucose 172 mg/dL (74-106); Sodium 141 mmol/L (136-145)
[2024-02-29 15:43] LABS: Potassium 2.2 mmol/L (3.5-5.1)
== END 2024-02-29 13:46 | disposition home or self-care (01) ==
LOC: LAB 13:45
PROVIDERS: PCP Family Medicine; Visit Provider Family Medicine
DX: R41.82 Altered mental status, unspecified (principal)
CPT/HCPCS: 36415; 80048; 81003; 85027

== ENCOUNTER 2024-03-01 09:00 | Outpatient (REF) | payer MEDICARE, SELFPAY ==
--- OUTSIDE RECORDS SUMMARY | 2024-03-01 09:04 | XMS_ITS | CCD ---
Author Organization [facility] CliniSyin Care Team Providers Care Manager Credit Collections Name Role Phone Sumanth Pearce Primary Care [...] Consulting Unavailable AGUBOSIM, PRIYANK Consulting Unavailable MARK, EUSBEIO Consulting Unavailable HOY ., DR JULIO Admitting Unavailable HOY ., DR JULIO Attending Unavailable HOY ., DR JULIO Primary Care Unavailable HOY ., DR JULIO Consulting Unavailable HOY ., DR JULIO Admitting Unavailable HOY ., DR JULIO Attending Unavailable HOY ., DR JULIO Primary Care Unavailable HOY ., DR JULIO Consulting Unavailable NILL, Joann R Attending Unavailable NILLJoann Attending Unavailable Unavailable Primary Care Provider Unavailabl e Allergies Allergy Classification Reported Allergen(s) Allergy Type Date of Onset Reaction(s) Facility Unclassified (1 source) No Known Medication Allergies; Translations: [No Known Medication Allergies] Propensity to adverse reactions (disorder) [facility] Repository Medications Current Medications Medication Drug [...] Test Name Value Interpretation Reference Range Facility [facility] CBC WITH PLATELET NO DI FFERENTIALon 02-29-2024 Erythrocyte distribution width (RBC) [Ratio] 19.5 % High 11.0 - 15.0 % [facility] Hematocrit (Bld) [Volume fraction] 31.4 % Low 36.0 - 48.0 % [facility] Hemoglobin (Bld) [Mass/Vol] 9.9 g/dL Low 12.0 - 16.0 g/dL [facility] Interpretation and review of laboratory results Abnormal [facility] MCH (RBC) [Entitic mass] 26.1 pg Low 26.7 - 34.0 pg [facility] MCHC (RBC) [Mass/Vol] 31.5 g/dL 29.9 - 35.2 g/dL [facility] MCV (RBC) [Entitic vol] 82.8 fL 81.0 - 99.0 fL [facility] Platelet mean volume (Bld) [Entitic vol] 10.7 fL 9.5 - 13.5 fL [facility] TBH PLT 550 High [facility] TBH RBC 3.79 Low [facility]H WBC 12.9 High [facility] NURSE COLLECT AD CLINISYNC [facility] General Surgery Office/Clini c Noteon 06-27-2023 General [...] Mother. Heart disease: Brother. Ovarian cancer: Mother. Normal [facility] Comment on above: Result Comment: Elec tronically Signed By: HERBERT CONKLIN, Joann Ferrera\noe\Date and Time Signed: 06/27/23 14:41 EDT Formson 06-26-2023 Forms [id number]#[id number] [facility] Ambulatory Visit Summaryon 0 06-25-2023 Ambulatory Visit Summary CASIMIRO KAMIHERLINDA Quijano :1950 Visit Date:06/25/2023 Ambulatory Visit Instructions Your Care Team Attending Physician - HERBERT CONKLIN, Joann Ferrera Primary Care Physician - Sumanth Pearce MD This Is Your Medications List albuterol (albuterol HFA 90 mcg/inh MDI) amitriptyline (amitriptyline 100 mg oral tablet) cholecalciferol (Vitamin D3 2000 intl units oral Tab) fluticasone/umeclidinium/dillan anterol (Trelegy Ellipta) levothyroxine (levothyroxine 88 mcg (0.088 [...] for choosing us for your care. Normal [facility] Operative Reporton Operative Report [id number]#[id number] Normal [facility] CALCIUMon 04-23-2022 Calcium [Mass/Vol] 8.8 mg/dL Normal 8.5-10.1 [facility] Comment on above: Performed By: #### T 4, CMP, FT3, TSH, LIPID #### [facility] [address] [address] [address] Juan M Soria CREATININEon 04-23-2022 Creatinine [Mass/Vol] 0.77 mg/dL Normal 0.55-1.02 [facility] Comment on above: Performed By: #### T 4, CMP, FT3, TSH, LIPID #### [facility] [address] [address] [address] Juan M Soria EGFR-AF BURUNDIAN >60 Normal >=60 [facility] Comment on above: Performed By: #### T 4, CMP, FT3, TSH, LIPID #### [facility] [address] [address] [address] Juan M Soria EGFR-NON AF BURUNDIAN >60 Normal >=60 [facility] Comment on above: Performed By: #### T 4, CMP, FT3, TSH, LIPID #### [facility] [address] [address] [address] Juan M Soria XR DEXA BONE [...] YENY PEARCE Date: 2022-04-17 12:02 Normal [facility] CBC AUTO DIFFon 10-31-2021 BASO # 0.1 103/ul Normal 0.0-0.1 [facility] Comment on above: Performed By: #### C BC #### [facility] [address] [place] [address] Dr. Juan M Soria Basophils/100 WBC (Bld) 0.8 % Normal 0.2-2.0 [facility] Comment on above: Performed By: #### C BC #### [facility] [address] [place] [address] Dr. Juan M Soria EO # 0.2 103/ul Normal 0.0-0.7 [facility] Comment on above: Performed By: #### C BC #### [facility] [address] [place] [address] Dr. Juan M Soria Eosinophils/100 WBC (Bld) 3.6 % Normal 0.9-7.0 [facility] Comment on above: Performed By: #### C BC #### [facility] [address] [place] [address] Dr. Juan M Soria Erythrocyte distribution width (RBC) [Ratio] 14.9 % Normal 11.0-15.0 [facility] Comment on above: Performed By: #### C BC #### [facility] [address] [place] [address] Dr. Juan M Soria Hematocrit (Bld) [Volume fraction] 39.7 % Normal 36.0-48.0 [facility] Comment on above: Performed By: #### C BC #### [facility] [address] [place] [address] Dr. Juan M Soria Hemoglobin (Bld) [Mass/Vol] 12.7 g/dL Normal 12.0-16.0 [facility] Comment on above: Performed By: #### C BC #### [facility] [address] [place] [address] Dr. Juan M Soria IG # 0.01 10e3/ul Normal 0.00-0.03 [facility] Comment on above: Performed By: #### C BC #### [facility] [address] [place] [address] Dr. Juan M Soria IG % 0.2 % Normal 0.0-0.5 [facility] Comment on above: Performed By: #### C BC #### [facility] [address] [place] [address] Dr. Juan M Soria LYMPH # 1.2 103/ul Normal 1.2-3.8 [facility] Comment on above: Performed By: #### C BC #### [facility] [address] [place] [address] Dr. Juan M Soria Lymphocytes/100 WBC (Bld) 19.8 % Critically low 20.5-60.0 [facility] Comment on above: Performed By: #### C BC #### [facility] [address] [place] [address] Dr. Juan M Soria MANUAL DIFF REQ NO Normal [facility] Comment on above: Performed By: #### C BC #### [facility] [address] [place] [address] Dr. Juan M Soria MCH (RBC) [Entitic mass] 27.0 pg Normal 26.7-34.0 [facility] Comment on above: Performed By: #### C BC #### [facility] [address] [place] [address] Dr. Juan M Soria MCHC (RBC) [Mass/Vol] 32.0 g/dL Normal 29.9-35.2 [facility] Comment on above: Performed By: #### C BC #### [facility] [address] [place] [address] Dr. Juan M Soria MCV (RBC) [Entitic vol] 84.3 fL Normal 81.0-99.0 [facility] Comment on above: Performed By: #### C BC #### [facility] [address] [place] [address] Dr. Juan M Soria MONO # 0.5 103/ul Normal 0.3-0.8 [facility] Comment on above: Performed By: #### C BC #### [facility] [address] [address] [address] Juan M Soria Monocytes/100 WBC (Bld) 8.1 % Normal 1.7-12.0 [facility] Comment on above: Performed By: #### C BC #### [facility] [address] [address] [address] Juan M Soria NEUT # 4.0 103/ul Normal 1.4-6.5 [facility] Comment on above: Performed By: #### C BC #### [facility] [address] [place] [address] Dr. Juan M Soria Neutrophils/100 WBC (Bld) 67.5 % Normal 43.0-75.0 [facility] Comment on above: Performed By: #### C BC #### [facility] [address] [place] [address] Dr. Juan M Soria Platelet mean volume (Bld) [Entitic vol] 9.3 fL Critically low 9.5-13.5 [facility] Comment on above: Performed By: #### C BC #### [facility] [address] [place] [address] Dr. Juan M Soria PLT 245 103/ul Normal 150-450 [facility] Comment on above: Performed By: #### C BC #### [facility] [address] [place] [address] Dr. Juan M Soria RBC 4.71 106/ul Normal 4.20-5.40 [facility] Comment on above: Performed By: #### C BC #### [facility] [address] [place] [address] Dr. Juan M Soria WBC 5.9 103/ul Normal 4.0-11.0 [facility] Comment on above: Performed By: #### C BC #### [facility] [address] [place] [address] Dr. Juan M Soria FERRITINon 10-31-2021 Ferritin [Mass/Vol] 47.0 ng/mL Normal 8.0-252.0 [facility] Comment on above: Performed By: #### T 4, CMP, FT3, TSH, LIPID #### [facility] [address] [place] [address] Dr. Juan M Soria IRONon 10-31-2021 Iron [Mass/Vol] 81.0 ug/dL Normal 50.0-170.0 [facility] Comment on above: Performed By: #### I CORINA, FERR #### [facility] [address] [place] [address] Dr. Juan M Soria XR COLONon 08-02-2021 XR COLON EXAMINATION: XR COLO N AIR CONTR., XR COLON HISTORY: Iron deficiency anemia COMPARISON: No relevant comparison available. FLUOROSCOPY TIME: Fluoro time measures 3.9 minutes and 22 images were obtained. TECHNIQUE: An air contrast barium enema examination was performed in the usual manner. No state fire marshal abdominal radiograph was performed. Standard level fluoroscopic mode of operation utilized. FINDINGS: COLON: Small diverticula scattered along the length of colon, most frequent involving the sigmoid colon. No mass, stricture, or appreciable mucosal irregularity. OTHER: Negative. IMPRESSION: 1. Long, redundant colon without appreciable mass, stricture, or suspicious findings. 2. Mild diverticulosis. Electronically authenticated by: YENY PEARCE Date: 2021-08-02 15:06 Normal [facility] OCC BLD IMMUNO SCREENon OCCULT BLOOD Negative Normal NEGATIVE [facility] Comment on above: Performed By: #### T 4, CMP, FT3, TSH, LIPID #### [facility] [address] [place] [address] Dr. Juan M Soria CBC AUTO DIFFon 06-13-2021 BASO # 0.0 103/ul Normal 0.0-0.1 [facility] Comment on above: Performed By: #### T 4, CMP, FT3, TSH, LIPID #### [facility] [address] [place] [address] Dr. Juan M Soria Basophils/100 WBC (Bld) 0.6 % Normal 0.2-2.0 [facility] Comment on above: Performed By: #### T 4, CMP, FT3, TSH, LIPID #### [facility] [address] [place] [address] Dr. Juan M Soria EO # 0.3 103/ul Normal 0.0-0.7 [facility] Comment on above: Performed By: #### T 4, CMP, FT3, TSH, LIPID #### [facility] [address] [place] [address] Dr. Juan M Soria Eosinophils/100 WBC (Bld) 3.8 % Normal 0.9-7.0 [facility] Comment on above: Performed By: #### T 4, CMP, FT3, TSH, LIPID #### [facility] [address] [address] [address] Juan M Soria Erythrocyte distribution width (RBC) [Ratio] 16.6 % Critically high 11.0-15.0 [facility] Comment on above: Performed By: #### T 4, CMP, FT3, TSH, LIPID #### [facility] [address] [place] [address] Dr. Juan M Soria Hematocrit (Bld) [Volume fraction] 30.7 % Critically low 36.0-48.0 [facility] Comment on above: Performed By: #### T 4, CMP, FT3, TSH, LIPID #### [facility] [address] [place] [address] Dr. Juan M Soria Hemoglobin (Bld) [Mass/Vol] 9.1 g/dL Critically low 12.0-16.0 [facility] Comment on above: Performed By: #### T 4, CMP, FT3, TSH, LIPID #### [facility] [address] [place] [address] Dr. Juan M Soria IG # 0.03 10e3/ul Normal 0.00-0.03 [facility] Comment on above: Performed By: #### T 4, CMP, FT3, TSH, LIPID #### [facility] [address] [place] [address] Dr. Juan M Soria IG % 0.5 % Normal 0.0-0.5 [facility] Comment on above: Performed By: #### T 4, CMP, FT3, TSH, LIPID #### [facility] [address] [place] [address] Dr. Juan M Soria LYMPH # 1.1 103/ul Critically low 1.2-3.8 [facility] Comment on above: Performed By: #### T 4, CMP, FT3, TSH, LIPID #### [facility] [address] [address] [address] Juan M Soria Lymphocytes/100 WBC (Bld) 16.8 % Critically low 20.5-60.0 [facility] Comment on above: Performed By: #### T 4, CMP, FT3, TSH, LIPID #### [facility] [address] [address] [address] Juan M Soria MANUAL DIFF REQ NO Normal [facility] Comment on above: Performed By: #### T 4, CMP, FT3, TSH, LIPID #### [facility] [address] [place] [address] Dr. Juan M Soria MCH (RBC) [Entitic mass] 22.4 pg Critically low 26.7-34.0 [facility] Comment on above: Performed By: #### T 4, CMP, FT3, TSH, LIPID #### [facility] [address] [place] [address] Dr. Juan M Soria MCHC (RBC) [Mass/Vol] 29.6 g/dL Critically low 29.9-35.2 [facility] Comment on above: Performed By: #### T 4, CMP, FT3, TSH, LIPID #### [facility] [address] [address] [address] Jua nM Soria MCV (RBC) [Entitic vol] 75.4 fL Critically low 81.0-99.0 [facility] Comment on above: Performed By: #### T 4, CMP, FT3, TSH, LIPID #### [facility] [address] [place] [address] Dr. Juan M Soria MONO # 0.4 103/ul Normal 0.3-0.8 [facility] Comment on above: Performed By: #### T 4, CMP, FT3, TSH, LIPID #### [facility] [address] [place] [address] Dr. Juan M Soria Monocytes/100 WBC (Bld) 5.9 % Normal 1.7-12.0 [facility] Comment on above: Performed By: #### T 4, CMP, FT3, TSH, LIPID #### [facility] [address] [address] [address] Juan M Soria NEUT # 4.8 103/ul Normal 1.4-6.5 [facility] Comment on above: Performed By: #### T 4, CMP, FT3, TSH, LIPID #### [facility] [address] [place] [address] Dr. Juan M Soria Neutrophils/100 WBC (Bld) 72.4 % Normal 43.0-75.0 [facility] Comment on above: Performed By: #### T 4, CMP, FT3, TSH, LIPID #### [facility] [address] [place] [address] Dr. Juan M Soria Platelet mean volume (Bld) [Entitic vol] 9.1 fL Critically low 9.5-13.5 [facility] Comment on above: Performed By: #### T 4, CMP, FT3, TSH, LIPID #### [facility] [address] [address] [address] Juan M Soria PLT 289 103/ul Normal 150-450 [facility] Comment on above: Performed By: #### T 4, CMP, FT3, TSH, LIPID #### [facility] [address] [address] [address] Juan M Soria RBC 4.07 106/ul Critically low 4.20-5.[address] [facility] Comment on above: Performed By: #### T 4, CMP, FT3, TSH, LIPID #### [facility] [address] [address] [address] Juan M Soria WBC 6.7 103/ul Normal 4.0-11.0 [facility] Comment on above: Performed By: #### T 4, CMP, FT3, TSH, LIPID #### [facility] [address] [place] [address] Dr. Juan M Soria FREE T3on 06-13-2021 FREE T3 2.54 pg/mlL Normal 2.18-3.98 [facility] Comment on above: Performed By: #### T 4, CMP, FT3, TSH, LIPID #### [facility] [address] [address] [address] Juan M Soria GLYCOHEMOGLOBIN A1Con 2021 ADA RECOMMENDATION SEE BELOW Normal [facility] Comment on above: Result Comment: ADA RECOMMENDED LIMIT 4.0 - 6.0 ADA THERAPEUTIC TARGET < 7.0 ACTION SUGGESTED > 7.0 Performed By: #### T 4, CMP, FT3, TSH, LIPID #### [facility] [address] [address] [address] Juan M Soria Glucose [Mass/Vol] 123 mg/dL Normal [facility] Comment on above: Performed By: #### T 4, CMP, FT3, TSH, LIPID #### [facility] [address] [place] [address] Dr. Juan M Soria HbA1c (Bld) [Mass fraction] 5.9 % Normal 4.5-6.2 [facility] Comment on above: Performed By: #### T 4, CMP, FT3, TSH, LIPID #### [facility] [address] [place] [address] Dr. Juan M Soria LIPID PROFILEon 06-13-2021 CHOL-HDL RATIO NORM SEE BELOW Normal [facility] Comment on above: Result Comment: 3.3 - 4.4 LOW RISK 4.4 - 7.1 AVERAGE RISK 7.1 - 11.0 MODERATE RISK >11.0 HIGH RISK Performed By: #### T 4, CMP, FT3, TSH, LIPID #### [facility] [address] [place] [address] Dr. Juan M Soria Cholesterol [Mass/Vol] 249 mg/dL Critically high <=200 [facility] Comment on above: Performed By: #### T 4, CMP, FT3, TSH, LIPID #### [facility] [address] [address] [address] Juan M Soria Cholesterol in HDL [Mass/Vol] 132 mg/dL Critically high 40-60 [facility] Comment on above: Performed By: #### T 4, CMP, FT3, TSH, LIPID #### [facility] [address] [address] [address] Juan M Soria Cholesterol in LDL [Mass/Vol] 108.4 mg/dL Normal [facility] Comment on above: Performed By: #### T 4, CMP, FT3, TSH, LIPID #### [facility] [address] [address] [address] Juan M Soria Cholesterol.total/ Cholesterol in HDL [Mass ratio] 1.9 {ratio} Normal [facility] Comment on above: Performed By: #### T 4, CMP, FT3, TSH, LIPID #### [facility] [address] [address] [address] Juan M Soria HDL NORMAL > or = 60 mg/dl - LO W CARDIOVASCULAR RISK <40 mg/dl - HIGH CARDIOVASCULAR RISK Normal [facility] Comment on above: Performed By: #### T 4, CMP, FT3, TSH, LIPID #### [facility] [address] [address] [address] Juan M Soria LDL CALC NORMAL SEE BELOW Normal [facility] Comment on above: Result Comment: <100 mg/dl OPTIMAL 100 - 129 mg/dl NEAR OR ABOVE OPTIMAL 130 - 159 mg/dl BORDERLINE HIGH 160 - 189 mg/dl HIGH >190 mg/dl VERY HIGH Performed By: #### T 4, CMP, FT3, TSH, LIPID #### [facility] [address] [address] [address] Juan M Soria Triglyceride [Mass/Vol] 43 mg/dL Normal <=150 [facility] Comment on above: Performed By: #### T 4, CMP, FT3, TSH, LIPID #### [facility] [address] [address] [address] Juan M Soria VLDL CALC 8.6 mg/dL Normal [facility] Comment on above: Performed By: #### T 4, CMP, FT3, TSH, LIPID #### [facility] [address] [address] [address] Juan M Soria PROF 14(COMP METB)on 022 Albumin [Mass/Vol] 3.6 g/dL Normal 3.4-5.0 [facility] Comment on above: Performed By: #### T 4, CMP, FT3, TSH, LIPID #### [facility] [address] [place] [address] Dr. Juan M Soria Albumin/Globulin [Mass ratio] 0.9 {ratio} Normal [facility] Comment on above: Performed By: #### T 4, CMP, FT3, TSH, LIPID #### [facility] [address] [place] [address] Dr. Juan M Soria ALP [Catalytic activity/Vol] 106 U/L Normal 46-116 [facility] Comment on above: Performed By: #### T 4, CMP, FT3, TSH, LIPID #### [facility] [address] [place] [address] Dr. Juan M Soria ALT [Catalytic activity/Vol] 24 U/L Normal 14-59 [facility] Comment on above: Performed By: #### T 4, CMP, FT3, TSH, LIPID #### [facility] [address] [place] [address] Dr. Juan M Soria Anion gap [Moles/Vol] 10.9 mmol/L Normal [facility] Comment on above: Performed By: #### T 4, CMP, FT3, TSH, LIPID #### [facility] [address] [place] [address] Dr. Juan M Soria AST [Catalytic activity/Vol] 18 U/L Normal 15-37 [facility] Comment on above: Performed By: #### T 4, CMP, FT3, TSH, LIPID #### [facility] [address] [place] [address] Dr. Juan M Soria Bilirubin [Mass/Vol] 0.2 mg/dL Normal 0.2-1.0 [facility] Comment on above: Performed By: #### T 4, CMP, FT3, TSH, LIPID #### [facility] [address] [place] [address] Dr. Juan M Soria Calcium [Mass/Vol] 8.7 mg/dL Normal 8.5-10.1 [facility] Comment on above: Performed By: #### T 4, CMP, FT3, TSH, LIPID #### [facility] [address] [address] [address] Juan M Soria Chloride [Moles/Vol] 101 mmol/L Normal 98-107 [facility] Comment on above: Performed By: #### T 4, CMP, FT3, TSH, LIPID #### [facility] [address] [place] [address] Dr. Juan M Soria CO2 [Moles/Vol] 25.9 mmol/L Normal 21.0-32.0 [facility] Comment on above: Performed By: #### T 4, CMP, FT3, TSH, LIPID #### [facility] [address] [place] [address] Dr. Juan M Soria Creatinine [Mass/Vol] 0.83 mg/dL Normal 0.55-1.02 [facility] Comment on above: Performed By: #### T 4, CMP, FT3, TSH, LIPID #### [facility] [address] [place] [address] Dr. Juan M Soria EGFR-AF BURUNDIAN >60 Normal >=60 [facility] Comment on above: Performed By: #### T 4, CMP, FT3, TSH, LIPID #### [facility] [address] [place] [address] Dr. Juan M Soria EGFR-NON AF BURUNDIAN >60 Normal >=60 [facility] Comment on above: Performed By: #### T 4, CMP, FT3, TSH, LIPID #### [facility] [address] [place] [address] Dr. Juan M Soria Globulin (S) [Mass/Vol] 4.2 g/dL Normal [facility] Comment on above: Performed By: #### T 4, CMP, FT3, TSH, LIPID #### [facility] [address] [place] [address] Dr. Juan M Soria Glucose [Mass/Vol] 92 mg/dL Normal 74-106 [facility] Comment on above: Performed By: #### T 4, CMP, FT3, TSH, LIPID #### [facility] [address] [place] [address] Dr. Juan M Soria Potassium [Moles/Vol] 3.8 mmol/L Normal 3.5-5.1 [facility] Comment on above: Performed By: #### T 4, CMP, FT3, TSH, LIPID #### [facility] [address] [place] [address] Dr. Juan M Soria Protein [Mass/Vol] 7.8 g/dL Normal 6.1-8.2 [facility] Comment on above: Performed By: #### T 4, CMP, FT3, TSH, LIPID #### [facility] [address] [place] [address] Dr. Juan M Soria Sodium [Moles/Vol] 134 mmol/L Critically low 136-145 [facility] Comment on above: Performed By: #### T 4, CMP, FT3, TSH, LIPID #### [facility] [address] [place] [address] Dr. Juan M Soria Urea nitrogen [Mass/Vol] 10.0 mg/dL Normal 7.0-18.0 [facility] Comment on above: Performed By: #### T 4, CMP, FT3, TSH, LIPID #### [facility] [address] [place] [address] Dr. Juan M Soria Urea nitrogen/Creatinin e [Mass ratio] 12.0 mg/mg Normal [facility] Comment on above: Performed By: #### T 4, CMP, FT3, TSH, LIPID #### [facility] [address] [place] [address] Dr. Juan M Soria T4on 06-13-2021 T4 [Mass/Vol] 10.10 ug/dL Normal 4.80-13.90 [facility] Comment on above: Performed By: #### T 4, CMP, FT3, TSH, LIPID #### [facility] [address] [place] [address] Dr. Juan M Soria TSHon 06-13-2021 TSH Qn m[IU]/L Critically low 0.470-4.680 [facility] Comment on above: Performed By: #### T 4, CMP, FT3, TSH, LIPID #### [facility] [address] [address] [address] Juan M Soria TSH RANGE SEE BELOW Normal [facility] Comment on above: Result Comment: <0.3 4 UIU/ml HYPERTHYROID 0.34-5.60 UIU/ml EUTHYROID >5.60 UIU/ml HYPOTHYROID Performed By: #### T 4, CMP, FT3, TSH, LIPID #### [facility] [address] [address] [address] Juan M Soria VITAMIN D 25 OHon 06-13-2021 VIT D 25-OH 42.1 ng/mL Normal [facility] Comment on above: Performed By: #### T 4, CMP, FT3, TSH, LIPID #### [facility] [address] [place] [address] Dr. Juan M Soria VIT D RANGES SEE BELOW Normal [facility] Comment on above: Result Comment: <20 ng/mL Vit D deficient 20 - <30 ng/mL Vit D insufficient 30 - 100 ng/mL Vit D sufficient >100 ng/mL Potential Toxicity Performed By: #### T 4, CMP, FT3, TSH, LIPID #### [facility] [address] [place] [address] Dr. Juan M Soria Vital Signs Date Time Vital Sign Value Performing Clinician Amy swanson 06-21-2021 15:25-0400 Blood Pressure Location Joann MARK [facility] [place] 06-21-2021 15:25-0400 Diastolic blood pressure 66 mm[Hg] Joann MARK [facility] [place] 06-21-2021 15:25-0400 Heart rate 96 /min Joann MARK [facility] [place] 06-21-2021 15:25-0400 Respiratory rate 16 /min Joann MARK [facility] [place] 06-21-2021 15:25-0400 Systolic blood pressure 120 mm[Hg] Joann MARK [facility] [place] Encounters Encounter Date Encounter Type Care Provider Facility Start: 02-29-2024 End: 02-29-2024 Clinisync Result Encounter Nery Estrada MD Work Phone: [facility] External Department Unsolicited Start: 02-29-2024 End: 02-29-2024 Clinisync Result Encounter Nery Estrada MD Work Phone: [facility] External Department Unsolicited Start: 06-25-2023 End: 06-25-2023 ambulatory Joann MARK Facility: [facility] Start: 06-25-2023 End: 06-25-2023 Patient encounter procedure Joann MARK [facility] Start: 06-12-2023 End: 06-12-2023 ambulatory Joann MARK Facility:CD:[id number] Start: 04-23-2022 End: 04-23-[address] SUMANTH PEARCE . Facility:[facility] Start: 04-17-2022 End: 04-18-[address] SUMANTH PEARCE . Facility:[facility] Start: 10-31-2021 End: 11-01-[address] SUMANTH PEARCE . Facility:[facility] Start: 08-02-2021 End: 08-02-[address] JOANN MARK . Facility:[facility] Start: 06-21-2021 End: 06-21-2021 Patient encounter procedure Joann MARK [facility] Start: 06-15-2021 End: 06-15-[address] SUMANTH PEARCE . Facility:[facility] Start: 06-13-2021 End: 06-14-[address] SUMANTH PEARCE . Facility: Procedures Date Procedure Procedure Detail Performing Clinician Start: 02-29-2024 HP CBC WITH PLATELET NO DIFFERENTIAL Nery Estrada MD Work Phone: Start: 06-13-2023 Esophagogastroduodenoscopy Joann BERUMENSrikanth Start: 08-02-2021 Colonoscopy Joann MARK Start: 08-02-2021 Esophagogastroduodenoscopy Joann NILL Cholecystectomy Joann BERUMENSrikanth Closed fracture of p halanx of left little finger (disorder) Joann BERUMENL H/O: L cataract extraction M cinthia MARK H/O: R cataract extraction M cinthia AMRK Kyphoplasty of fract ure of spine using fluoroscopic guidance Joann BERUMENSrikanth Payers Date Payer Category Payer Medicare [id number] 2023 Medicare [id number] 1959 Medicare [id number] 1959 Unknown [id number] 1950 Unknown [id number] 2.16.84 [id number] 1950 Unknown [id number] 2.16.84 [id number] 1950 Unknown [id number] 2.16.84 [id number] 1950 Unknown [id number] 2.16.84 [id number] 1950 Unknown [id number] 2.16.84 [id number] 1950 Unknown [id number] 2.16.84 [id number] 1950 Unknown [id number] 2.16.8 [id number] 1950 Unknown [id number] 2.16.8 [id number] Social History Date Type Detail Facility Start: 06-21-2021 End: 06-25-2023 Tobacco smoking status Ex-smoker (finding) [facility] Tobacco smoking status Smokeless tobacco user within last 30 days [facility] Sex Assigned At Female [facility] [place] Tobacco smoking status NHIS Tobacco smoking consumption unknown [facility] Start: 1950 Sex assigned at Not on file [facility] Functional Status Date Assessment Result Facility 06-25-2023 Functional Status N/A [facility] [place] History and physical note 06-14-2023 Note Date & Type Note Facility 06-14-2023 Note [id number] [facility] Clinical Note 08-02-2021 Note Date & [...] barium enema results. CC: Sumanth Pearce M.D. [facility] Signed and Approved by: DR JOANN MARK . 08/03/2021 14:01:00 [facility] Evaluation + Plan note Note Date & Type Note Facility Evaluation + Plan note No data available for this section [facility] [place] [facility] Discharge instructions Note Date & Type Note Facility Hospital Discharge instructions No data available for this section [facility] [place] Progress note Note Date & Type Note Facility Progress note No data available for this section [facility] Summary Purpose Family History No Family History Records Found No data available for this section No Family History Records Found Advance Directives No Advanced Directives Records FoundNo Advanced Directives Records Found Additional Source Comments INFORMATION SOURCE (unrecogn ized section and content) DATE CREATED AUTHOR 04/23/2022 [facility] DATE CREATED AUTHOR AUTHOR'S ORGANIZ ATION 08/03/2023 [place] [facility] Patient Care team informatio n (unrecognized section and content) Personnel Name: Sumanth Pearce MD Address: Address: [address] [place] [address] FOR RECORDS PERTAINING TO PATIENTS WHO ARE [...] BE BASED ON THE PRIMARY CLINICAL RECORDS. [facility] [facility]. provides no warranty or guarantee of the accuracy or completeness of information in this document.
[2024-03-01 13:05] LABS: Potassium 2.7 mmol/L (3.5-5.1)
== END 2024-03-01 09:01 | disposition home or self-care (01) ==
LOC: LAB 09:00
PROVIDERS: PCP Family Medicine; Visit Provider Family Medicine
DX: E87.6 Hypokalemia (principal); Z79.899 Other long term (current) drug therapy
CPT/HCPCS: 36415; 84132

== ENCOUNTER 2024-04-28 09:09 | Outpatient (OUT) | payer MEDICARE, SELFPAY ==
--- OUTSIDE RECORDS SUMMARY | 2024-04-28 09:24 | XMS_ITS | CCD ---
Author Organization [facility] CliniSyma Care Team Providers Care Senior Human Resources Representative Name Role Phone Sumanth Pearce Primary Care [...] Propensity to adverse reactions (disorder) [facility] Repository Medications Current Medications Medication Drug Class(es) [...] Test Name Value Interpretation Reference Range Facility ALL POTASSIUMon 03-01-2024 Interpretation and review of laboratory results Abnormal [facility] Potassium [Moles/Vol] 2.7 mmol/L Critically low 3.5 - 5.1 mmol/L [facility] Comment on above: RESULTS CALLED TO LIZABETH AVILA LPN BY Daisy Joseph at [address] [facility] CBC WITH PLATELET NO DI FFERENTIALon 02-29-2024 Erythrocyte distribution width (RBC) [Ratio] 19.5 % High 11.0 - 15.0 % [facility] Hematocrit (Bld) [Volume fraction] 31.4 % Low 36.0 - 48.0 % [facility] Hemoglobin (Bld) [Mass/Vol] 9.9 g/dL Low 12.0 - 16.0 g/dL [facility] Interpretation and review of laboratory results Abnormal [facility] MCH (RBC) [Entitic mass] 26.1 pg Low 26.7 - 34.0 pg [facility] MCHC (RBC) [Mass/Vol] 31.5 g/dL 29.9 - 35.2 g/dL [facility] MCV (RBC) [Entitic vol] 82.8 fL 81.0 - 99.0 fL [facility] Platelet mean volume (Bld) [Entitic vol] 10.7 fL 9.5 - 13.5 fL [facility] TBH PLT 550 High [facility] TB RBC 3.79 Low [facility] TB WBC 12.9 High [facility]Clini c Noteon 06-27-2023 General [...] Heart disease: Brother. Ovarian cancer: Mother. Normal [facility] Comment on above: Result Comment: Elec tronically Signed By: HERBERT CONKLIN, Joann Mittal\Date and Time Signed: 06/27/23 14:41 EDT Formson 06-26-2023 Forms [id number] Normal [facility] Ambulatory Visit Summaryon 0 06-25-2023 Ambulatory Visit Summary JESSICA ASIF :1950 Visit Date:06/25/2023 Ambulatory Visit Instructions Your [...] us for your care. Normal [facility] Operative Reporton Operative Report [id number] Normal [facility] CALCIUMon 04-23-2022 Calcium [Mass/Vol] 8.8 mg/dL Normal 8.5-10.1 [facility] Comment on above: Performed By: #### T 4, CMP, FT3, TSH, LIPID #### [facility] [address] [address] [address] Juan M Soria CREATININEon 04-23-2022 Creatinine [Mass/Vol] 0.77 mg/dL Normal 0.55-1.02 [facility] Comment on above: Performed By: #### T 4, CMP, FT3, TSH, LIPID #### [facility] [address] [address] [address] Juan M Soria EGFR-AF CITIZEN [place] >60 Normal >=60 [facility] Comment on above: Performed By: #### T 4, CMP, FT3, TSH, LIPID #### [facility] [address] [address] [address] Juan M Soria EGFR-NON AF CITIZEN OF [place] >60 Normal >=60 [facility] Comment on above: Performed By: #### T 4, CMP, FT3, TSH, LIPID #### [facility] [address] [address] [address] Juan M Soria XR DEXA BONE [...] YENY PEARCE Date: 2022-04-17 12:02 Normal [facility] CBC AUTO DIFFon 10-31-2021 BASO # 0.1 103/ul Normal 0.0-0.1 [facility] Comment on above: Performed By: #### C BC #### [facility] [address] [place] [address] Dr. Juan M Soria Basophils/100 WBC (Bld) 0.8 % Normal 0.2-2.0 [facility] Comment on above: Performed By: #### C BC #### [facility] [address] [place] [address] Dr. Juan M Soria EO # 0.2 103/ul Normal 0.0-0.7 [facility] Comment on above: Performed By: #### C BC #### [facility] [address] [place] [address] Dr. Juan M Soria Eosinophils/100 WBC (Bld) 3.6 % Normal 0.9-7.0 [facility] Comment on above: Performed By: #### C BC #### [facility] [address] [place] [address] Dr. Juan M Soria Erythrocyte distribution width (RBC) [Ratio] 14.9 % Normal 11.0-15.0 [facility] Comment on above: Performed By: #### C BC #### [facility] [address] [place] [address] Dr. Juan M Soria Hematocrit (Bld) [Volume fraction] 39.7 % Normal 36.0-48.0 [facility] Comment on above: Performed By: #### C BC #### [facility] [address] [place] [address] Dr. Juan M Soria Hemoglobin (Bld) [Mass/Vol] 12.7 g/dL Normal 12.0-16.0 [facility] Comment on above: Performed By: #### C BC #### [facility] [address] [place] [address] Dr. Juan M Soria IG # 0.01 10e3/ul Normal 0.00-0.03 [facility] Comment on above: Performed By: #### C BC #### [facility] [address] [place] [address] Dr. Juan M Soria IG % 0.2 % Normal 0.0-0.5 [facility] Comment on above: Performed By: #### C BC #### [facility] [address] [place] [address] Dr. Juan M Soria LYMPH # 1.2 103/ul Normal 1.2-3.8 [facility] Comment on above: Performed By: #### C BC #### [facility] [address] [place] [address] Dr. Juan M Soria Lymphocytes/100 WBC (Bld) 19.8 % Critically low 20.5-60.0 [facility] Comment on above: Performed By: #### C BC #### [facility] [address] [place] [address] Dr. Juan M Soria MANUAL DIFF REQ NO Normal [facility] Comment on above: Performed By: #### C BC #### [facility] [address] [place] [address] Dr. Juan M Soria MCH (RBC) [Entitic mass] 27.0 pg Normal 26.7-34.0 [facility] Comment on above: Performed By: #### C BC #### [facility] [address] [place] [address] Dr. Juan M Soria MCHC (RBC) [Mass/Vol] 32.0 g/dL Normal 29.9-35.2 [facility] Comment on above: Performed By: #### C BC #### [facility] [address] [place] [address] Dr. Juan M Soria MCV (RBC) [Entitic vol] 84.3 fL Normal 81.0-99.0 [facility] Comment on above: Performed By: #### C BC #### [facility] [address] [place] [address] Dr. Juan M Soria MONO # 0.5 103/ul Normal 0.3-0.8 [facility] Comment on above: Performed By: #### C BC #### [facility] [address] [place] [address] Dr. Juan M Soria Monocytes/100 WBC (Bld) 8.1 % Normal 1.7-12.0 [facility] Comment on above: Performed By: #### C BC #### [facility] [address] [place] [address] Dr. Juan M Soria NEUT # 4.0 103/ul Normal 1.4-6.5 [facility] Comment on above: Performed By: #### C BC #### [facility] [address] [place] [address] Dr. Juan M Soria Neutrophils/100 WBC (Bld) 67.5 % Normal 43.0-75.0 [facility] Comment on above: Performed By: #### C BC #### [facility] [address] [place] [address] Dr. Juan M Soria Platelet mean volume (Bld) [Entitic vol] 9.3 fL Critically low 9.5-13.5 [facility] Comment on above: Performed By: #### C BC #### [facility] [address] [place] [address] Dr. Juan M Soria PLT 245 103/ul Normal 150-450 [facility] Comment on above: Performed By: #### C BC #### [facility] [address] [place] [address] Dr. Juan M Soria RBC 4.71 106/ul Normal 4.20-5.40 [facility] Comment on above: Performed By: #### C BC #### [facility] [address] [place] [address] Dr. Juan M Soria WBC 5.9 103/ul Normal 4.0-11.0 [facility] Comment on above: Performed By: #### C BC #### [facility] [address] [address] [address] Juan M Soria FERRITINon 10-31-2021 Ferritin [Mass/Vol] 47.0 ng/mL Normal 8.0-252.0 [facility] Comment on above: Performed By: #### T 4, CMP, FT3, TSH, LIPID #### [facility] [address] [place] [address] Dr. Juan M Soria IRONon 10-31-2021 Iron [Mass/Vol] 81.0 ug/dL Normal 50.0-170.0 [facility] Comment on above: Performed By: #### I CORINA, FERR #### [facility] [address] [place] [address] Dr. Juan M Soria XR COLONon 08-02-2021 XR COLON EXAMINATION: XR COLO N AIR CONTR., XR COLON HISTORY: Iron deficiency anemia COMPARISON: No relevant comparison available. FLUOROSCOPY TIME: Fluoro time measures 3.9 minutes and 22 images were obtained. TECHNIQUE: An air contrast barium enema examination was performed in the usual manner. No digital sales planner abdominal radiograph was performed. Standard level fluoroscopic mode of operation utilized. FINDINGS: COLON: Small diverticula scattered along the length of colon, most frequent involving the sigmoid colon. No mass, stricture, or appreciable mucosal irregularity. OTHER: Negative. IMPRESSION: 1. Long, redundant colon without appreciable mass, stricture, or suspicious findings. 2. Mild diverticulosis. Electronically authenticated by: YENY PEARCE Date: 2021-08-02 15:06 Normal [facility] OCC BLD IMMUNO SCREENon OCCULT BLOOD Negative Normal NEGATIVE [facility] Comment on above: Performed By: #### T 4, CMP, FT3, TSH, LIPID #### [facility] [address] [place] [address] Dr. Juan M Soria CBC AUTO DIFFon 06-13-2021 BASO # 0.0 103/ul Normal 0.0-0.1 [facility] Comment on above: Performed By: #### T 4, CMP, FT3, TSH, LIPID #### [facility] [address] [place] [address] Dr. Juan M Soria Basophils/100 WBC (Bld) 0.6 % Normal 0.2-2.0 [facility] Comment on above: Performed By: #### T 4, CMP, FT3, TSH, LIPID #### [facility] [address] [place] [address] Dr. Juan M Soria EO # 0.3 103/ul Normal 0.0-0.7 [facility] Comment on above: Performed By: #### T 4, CMP, FT3, TSH, LIPID #### [facility] [address] [place] [address] Dr. Juan M Soria Eosinophils/100 WBC (Bld) 3.8 % Normal 0.9-7.0 [facility] Comment on above: Performed By: #### T 4, CMP, FT3, TSH, LIPID #### [facility] [address] [place] [address] Dr. Juan M Soria Erythrocyte distribution width (RBC) [Ratio] 16.6 % Critically high 11.0-15.0 [facility] Comment on above: Performed By: #### T 4, CMP, FT3, TSH, LIPID #### [facility] [address] [place] [address] Dr. Juan M Soria Hematocrit (Bld) [Volume fraction] 30.7 % Critically low 36.0-48.0 [facility] Comment on above: Performed By: #### T 4, CMP, FT3, TSH, LIPID #### [facility] [address] [place] [address] Dr. Juan M Soria Hemoglobin (Bld) [Mass/Vol] 9.1 g/dL Critically low 12.0-16.0 [facility] Comment on above: Performed By: #### T 4, CMP, FT3, TSH, LIPID #### [facility] [address] [place] [address] Dr. Juan M Soria IG # 0.03 10e3/ul Normal 0.00-0.03 [facility] Comment on above: Performed By: #### T 4, CMP, FT3, TSH, LIPID #### [facility] [address] [address] [address] Juan M Soria IG % 0.5 % Normal 0.0-0.5 [facility] Comment on above: Performed By: #### T 4, CMP, FT3, TSH, LIPID #### [facility] [address] [place] [address] Dr. Juan M Soria LYMPH # 1.1 103/ul Critically low 1.2-3.8 [facility] Comment on above: Performed By: #### T 4, CMP, FT3, TSH, LIPID #### [facility] [address] [place] [address] Dr. Juan M Soria Lymphocytes/100 WBC (Bld) 16.8 % Critically low 20.5-60.0 [facility] Comment on above: Performed By: #### T 4, CMP, FT3, TSH, LIPID #### [facility] [address] [place] [address] Dr. Juan M Soria MANUAL DIFF REQ NO Normal [facility] Comment on above: Performed By: #### T 4, CMP, FT3, TSH, LIPID #### [facility] [address] [place] [address] Dr. Juan M Soria MCH (RBC) [Entitic mass] 22.4 pg Critically low 26.7-34.0 [facility] Comment on above: Performed By: #### T 4, CMP, FT3, TSH, LIPID #### [facility] [address] [place] [address] Dr. Juan M Soria MCHC (RBC) [Mass/Vol] 29.6 g/dL Critically low 29.9-35.2 [facility] Comment on above: Performed By: #### T 4, CMP, FT3, TSH, LIPID #### [facility] [address] [place] [address] Dr. Juan M Soria MCV (RBC) [Entitic vol] 75.4 fL Critically low 81.0-99.0 [facility] Comment on above: Performed By: #### T 4, CMP, FT3, TSH, LIPID #### [facility] [address] [place] [address] Dr. Juan M Soria MONO # 0.4 103/ul Normal 0.3-0.8 [facility] Comment on above: Performed By: #### T 4, CMP, FT3, TSH, LIPID #### [facility] [address] [place] [address] Dr. Juan M Soria Monocytes/100 WBC (Bld) 5.9 % Normal 1.7-12.0 [facility] Comment on above: Performed By: #### T 4, CMP, FT3, TSH, LIPID #### [facility] [address] [place] [address] Dr. Juan M Soria NEUT # 4.8 103/ul Normal 1.4-6.5 [facility] Comment on above: Performed By: #### T 4, CMP, FT3, TSH, LIPID #### [facility] [address] [place] [address] Dr. Juan M Soria Neutrophils/100 WBC (Bld) 72.4 % Normal 43.0-75.0 [facility] Comment on above: Performed By: #### T 4, CMP, FT3, TSH, LIPID #### [facility] [address] [place] [address] Dr. Juan M Soria Platelet mean volume (Bld) [Entitic vol] 9.1 fL Critically low 9.5-13.5 [facility] Comment on above: Performed By: #### T 4, CMP, FT3, TSH, LIPID #### [facility] [address] [place] [address] Dr. Juan M Soria PLT 289 103/ul Normal 150-450 [facility] Comment on above: Performed By: #### T 4, CMP, FT3, TSH, LIPID #### [facility] [address] [place] [address] Dr. Juan M Soria RBC 4.07 106/ul Critically low 4.20-5.40 [facility] Comment on above: Performed By: #### T 4, CMP, FT3, TSH, LIPID #### [facility] [address] [place] [address] Dr. Juan M Soria WBC 6.7 103/ul Normal 4.0-11.0 [facility] Comment on above: Performed By: #### T 4, CMP, FT3, TSH, LIPID #### [facility] [address] [address] [address] Juan M Soria FREE T3on 06-13-2021 FREE T3 2.54 pg/mlL Normal 2.18-3.98 [facility] Comment on above: Performed By: #### T 4, CMP, FT3, TSH, LIPID #### [facility] [address] [place] [address] Dr. Juan M Soria GLYCOHEMOGLOBIN A1Con 2021 ADA RECOMMENDATION SEE BELOW Normal [facility] Comment on above: Result Comment: ADA RECOMMENDED LIMIT 4.0 - 6.0 ADA THERAPEUTIC TARGET < 7.0 ACTION SUGGESTED > 7.0 Performed By: #### T 4, CMP, FT3, TSH, LIPID #### [facility] [address] [place] [address] Dr. Juan M Soria Glucose [Mass/Vol] 123 mg/dL Normal [facility] Comment on above: Performed By: #### T 4, CMP, FT3, TSH, LIPID #### [facility] [address] [place] [address] Dr. Juan M Soria HbA1c (Bld) [Mass fraction] 5.9 % Normal 4.5-6.2 [facility] Comment on above: Performed By: #### T 4, CMP, FT3, TSH, LIPID #### [facility] [address] [place] [address] Dr. Juan M Soria LIPID PROFILEon 06-13-2021 CHOL-HDL RATIO NORM SEE BELOW Normal [facility] Comment on above: Result Comment: 3.3 - 4.4 LOW RISK 4.4 - 7.1 AVERAGE RISK 7.1 - 11.0 MODERATE RISK >11.0 HIGH RISK Performed By: #### T 4, CMP, FT3, TSH, LIPID #### [facility] [address] [place] [address] Dr. Juan M Soria Cholesterol [Mass/Vol] 249 mg/dL Critically high <=200 [facility] Comment on above: Performed By: #### T 4, CMP, FT3, TSH, LIPID #### [facility] [address] [address] [address] Juan M Soria Cholesterol in HDL [Mass/Vol] 132 mg/dL Critically high 40-60 [facility] Comment on above: Performed By: #### T 4, CMP, FT3, TSH, LIPID #### [facility] [address] [address] [address] Juan M Soria Cholesterol in LDL [Mass/Vol] 108.4 mg/dL Normal [facility] Comment on above: Performed By: #### T 4, CMP, FT3, TSH, LIPID #### [facility] [address] [place] [address] Dr. Juan M Soria Cholesterol.total/ Cholesterol in HDL [Mass ratio] 1.9 {ratio} Normal [facility] Comment on above: Performed By: #### T 4, CMP, FT3, TSH, LIPID #### [facility] [address] [place] [address] Dr. Juan M Soria HDL NORMAL > or = 60 mg/dl - LO W CARDIOVASCULAR RISK <40 mg/dl - HIGH CARDIOVASCULAR RISK Normal [facility] Comment on above: Performed By: #### T 4, CMP, FT3, TSH, LIPID #### [facility] [address] [place] [address] Dr. Juan M Soria LDL CALC NORMAL SEE BELOW Normal [facility] Comment on above: Result Comment: <100 mg/dl OPTIMAL 100 - 129 mg/dl NEAR OR ABOVE OPTIMAL 130 - 159 mg/dl BORDERLINE HIGH 160 - 189 mg/dl HIGH >190 mg/dl VERY HIGH Performed By: #### T 4, CMP, FT3, TSH, LIPID #### [facility] [address] [place] [address] Dr. Juan M Soria Triglyceride [Mass/Vol] 43 mg/dL Normal <=150 [facility] Comment on above: Performed By: #### T 4, CMP, FT3, TSH, LIPID #### [facility] [address] [place] [address] Dr. Juan M Soria VLDL CALC 8.6 mg/dL Normal [facility] Comment on above: Performed By: #### T 4, CMP, FT3, TSH, LIPID #### [facility] [address] [place] [address] Dr. Juan M Soria PROF 14(COMP METB)on 022 Albumin [Mass/Vol] 3.6 g/dL Normal 3.4-5.0 [facility] Comment on above: Performed By: #### T 4, CMP, FT3, TSH, LIPID #### [facility] [address] [place] [address] Dr. Juan M Soria Albumin/Globulin [Mass ratio] 0.9 {ratio} Normal [facility] Comment on above: Performed By: #### T 4, CMP, FT3, TSH, LIPID #### [facility] [address] [place] [address] Dr. Juan M Soria ALP [Catalytic activity/Vol] 106 U/L Normal 46-116 [facility] Comment on above: Performed By: #### T 4, CMP, FT3, TSH, LIPID #### [facility] [address] [place] [address] Dr. Juan M Soria ALT [Catalytic activity/Vol] 24 U/L Normal 14-59 [facility] Comment on above: Performed By: #### T 4, CMP, FT3, TSH, LIPID #### [facility] [address] [place] [address] Dr. Juan M Soria Anion gap [Moles/Vol] 10.9 mmol/L Normal [facility] Comment on above: Performed By: #### T 4, CMP, FT3, TSH, LIPID #### [facility] [address] [place] [address] Dr. Juan M Soria AST [Catalytic activity/Vol] 18 U/L Normal 15-37 [facility] Comment on above: Performed By: #### T 4, CMP, FT3, TSH, LIPID #### [facility] [address] [place] [address] Dr. Juan M Soria Bilirubin [Mass/Vol] 0.2 mg/dL Normal 0.2-1.0 [facility] Comment on above: Performed By: #### T 4, CMP, FT3, TSH, LIPID #### [facility] [address] [place] [address] Dr. Juan M Soria Calcium [Mass/Vol] 8.7 mg/dL Normal 8.5-10.1 [facility] Comment on above: Performed By: #### T 4, CMP, FT3, TSH, LIPID #### [facility] [address] [place] [address] Dr. Juan M Soria Chloride [Moles/Vol] 101 mmol/L Normal 98-107 [facility] Comment on above: Performed By: #### T 4, CMP, FT3, TSH, LIPID #### [facility] [address] [place] [address] Dr. Juan M Soria CO2 [Moles/Vol] 25.9 mmol/L Normal 21.0-32.0 [facility] Comment on above: Performed By: #### T 4, CMP, FT3, TSH, LIPID #### [facility] [address] [place] [address] Dr. Juan M Soria Creatinine [Mass/Vol] 0.83 mg/dL Normal 0.55-1.02 [facility] Comment on above: Performed By: #### T 4, CMP, FT3, TSH, LIPID #### [facility] [address] [place] [address] Dr. Juan M Soria EGFR-AF CITIZEN [place] >60 Normal >=60 [facility] Comment on above: Performed By: #### T 4, CMP, FT3, TSH, LIPID #### [facility] [address] [place] [address] Dr. Juan M Soria EGFR-NON AF CITIZEN OF [place] >60 Normal >=60 [facility] Comment on above: Performed By: #### T 4, CMP, FT3, TSH, LIPID #### [facility] [address] [place] [address] Dr. Juan M Soria Globulin (S) [Mass/Vol] 4.2 g/dL Normal [facility] Comment on above: Performed By: #### T 4, CMP, FT3, TSH, LIPID #### [facility] [address] [place] [address] Dr. Juan M Soria Glucose [Mass/Vol] 92 mg/dL Normal 74-106 [facility] Comment on above: Performed By: #### T 4, CMP, FT3, TSH, LIPID #### [facility] [address] [place] [address] Dr. Juan M Soria Potassium [Moles/Vol] 3.8 mmol/L Normal 3.5-5.1 [facility] [facility] Comment on above: Performed By: #### T 4, CMP, FT3, TSH, LIPID #### [facility] [address] [place] [address] Dr. Juan M Soria Protein [Mass/Vol] 7.8 g/dL Normal 6.1-8.2 [facility] Comment on above: Performed By: #### T 4, CMP, FT3, TSH, LIPID #### [facility] [address] [place] [address] Dr. Juan M Soria Sodium [Moles/Vol] 134 mmol/L Critically low 136-145 [facility] Comment on above: Performed By: #### T 4, CMP, FT3, TSH, LIPID #### [facility] [address] [place] [address] Dr. Juan M Soria Urea nitrogen [Mass/Vol] 10.0 mg/dL Normal 7.0-18.0 [facility] Comment on above: Performed By: #### T 4, CMP, FT3, TSH, LIPID #### [facility] [address] [place] [address] Dr. Juan M Soria Urea nitrogen/Creatinin e [Mass ratio] 12.0 mg/mg Normal [facility] Comment on above: Performed By: #### T 4, CMP, FT3, TSH, LIPID #### [facility] [address] [place] [address] Dr. Juan M Soria T4on 06-13-2021 T4 [Mass/Vol] 10.10 ug/dL Normal 4.80-13.90 [facility] Comment on above: Performed By: #### T 4, CMP, FT3, TSH, LIPID #### [facility] [address] [address] [address] Juan M Soria TSHon 06-13-2021 TSH Qn m[IU]/L Critically low 0.470-4.680 [facility] Comment on above: Performed By: #### T 4, CMP, FT3, TSH, LIPID #### [facility] [address] [place] [address] Dr. Juan M Soria TSH RANGE SEE BELOW Normal [facility] Comment on above: Result Comment: <0.3 4 UIU/ml HYPERTHYROID 0.34-5.60 UIU/ml EUTHYROID >5.60 UIU/ml HYPOTHYROID Performed By: #### T 4, CMP, FT3, TSH, LIPID #### [facility] [address] [place] [address] Dr. Juan M Soria VITAMIN D 25 OHon 06-13-2021 VIT D 25-OH 42.1 ng/mL Normal [facility] Comment on above: Performed By: #### T 4, CMP, FT3, TSH, LIPID #### [facility] [address] [place] [address] Dr. Juan M Soria VIT D RANGES SEE BELOW Normal [facility] Comment on above: Result Comment: <20 ng/mL Vit D deficient 20 - <30 ng/mL Vit D insufficient 30 - 100 ng/mL Vit D sufficient >100 ng/mL Potential Toxicity Performed By: #### T 4, CMP, FT3, TSH, LIPID #### [facility] [address] [place] [address] Dr. Juan M Soria Vital Signs Date Time Vital Sign Value Performing Clinician Faci lity 06-21-2021 15:25-0400 Blood Pressure Location Joann MARK [facility] [place] 06-21-2021 15:25-0400 Diastolic blood pressure 66 mm[Hg] Joann MARK [facility] [place] 06-21-2021 15:25-0400 Heart rate 96 /min Joann MARK [facility] 06-21-2021 15:25-0400 Respiratory rate 16 /min Joann BERUMENL [facility] 06-21-2021 15:25-0400 Systolic blood pressure 120 mm[Hg] Joann MARK [facility] Encounters Encounter Date Encounter Type Care Provider Facility Start: 03-01-2024 End: 03-01-2024 Clinis[facility] Result Encounter Nery Estrada MD Work Phone: [facility] External [facility] Unsolicited Start: 03-01-2024 End: 03-01-2024 [facility] Result Encounter Nery Estrada MD Work Phone: [facility] External [facility] Unsolicited Start: 02-29-2024 End: 02-29-2024 [facility] Result Encounter Nery Estrada MD Work Phone: [facility] External [facility] Unsolicited Start: 02-29-2024 End: 02-29-2024 [facility] Result Encounter Nery Estrada MD Work Phone: [facility] External Department Unsolicited Start: 06-25-2023 End: 06-25-2023 ambulatory Joann MARK Facility:[facility] Start: 06-25-2023 End: 06-25-2023 Patient encounter procedure Joann MARK [facility] Start: 06-12-2023 End: 06-12-2023 ambulatory Joann AMRK Facility:[id number] Start: 04-23-2022 End: 04-23-[address] SUMANTH PEARCE . Facility: Start: 04-17-2022 End: 04-18-[address] SUMANTH PEARCE . Facility:[facility] Start: 10-31-2021 End: 11-01-[address] SUMANTH PEARCE . Facility: Start: 08-02-2021 End: 08-02-[address] JOANN MARK . Facility:[facility] Start: 06-21-2021 End: 06-21-2021 Patient encounter procedure Joann MARK [facility] Nill[facility] Start: 06-15-2021 End: 06-15-[address] SUMANTH PEARCE . Facility:[facility] Start: 06-13-2021 End: 06-14-[address] SUMANTH PEARCE . Facility:[facility] Procedures Date Procedure Procedure Detail Performing Clinician Start: 03-01-2024 ALL POTASSIUM eNry Estrada MD Work Phone: Start: 02-29-2024 [facility] CBC WITH PLATELET NO DIFFERENTIAL Nery Estrada MD Work Phone: Start: 06-13-2023 Esophagogastroduodenoscopy Joann BERUMENL Start: 08-02-2021 Colonoscopy Joann BERUMENL Start: 08-02-2021 Esophagogastroduodenoscopy Joann NILL Cholecystectomy Joann NILL Closed fracture of p halanx of left little finger (disorder) Joann NILL H/O: L cataract extraction M ichael NILL H/O: R cataract extraction M ichael NILL Kyphoplasty of fract ure of spine using fluoroscopic guidance Joann BERUMENL Payers Date Payer Category Payer Medicare [id number] 2023 Medicare [id number] 1959 Medicare [id number] 1959 Unknown [id number] 1950 Unknown [id number] 2.16.84 [id number] 1950 Unknown [id number] 2.16.84 [id number] 1950 Unknown [id number] 2.16.84 [id number] 1950 Unknown [id number] 2.16.84 [id number] 1950 Unknown [id number] 2.16.84 [id number] 1950 Unknown [id number] 2.16.84 [id number] 1950 Unknown [id number] 2.16.8 [id number] 1950 Unknown [id number] 2.16.8 [id number] Social History Date Type Detail Facility Start: 06-21-2021 End: 06-25-2023 Tobacco smoking status Ex-smoker (finding) [facility] Tobacco smoking status Smokeless tobacco user within last 30 days [facility] Sex Assigned At Female [facility] [place] Tobacco smoking status [facility] Tobacco smoking consumption unknown [facility] Healthcare Start: 1950 Sex assigned at Not on file N [facility] Healthcare Functional Status Date Assessment Result Facility 06-25-2023 Functional Status N/A [facility] [place] History and physical note 06-14-2023 Note Date & Type Note Facility 06-14-2023 Note [id number] #[id number] [facility] Clinical Note 08-02-2021 Note Date & Type [...] barium enema results. CC: Sumanth Pearce M.D. PSYCHIATRIC Signed and Approved by: DR JOANN MARK . 08/03/2021 14:01:00 [facility] Evaluation + Plan note Note Date & Type Note Facility Evaluation + Plan note No data available for this section [facility] [place] [facility] Discharge instructions Note Date & Type Note Facility Hospital Discharge instructions No data available for this section [facility] Progress note Note Date & Type Note Facility Progress note No data available for this section [facility] [place] Summary Purpose Family History No Family History Records Found No data available for this section No Family History Records Found Advance Directives No Advanced Directives Records FoundNo Advanced Directives Records Found Additional Source Comments INFORMATION SOURCE (unrecogn ized section and content) DATE CREATED AUTHOR 04/23/2022 [facility] DATE CREATED AUTHOR AUTHOR'S ORGANIZ ATION 08/03/2023 [facility] Patient Care team informatio n (unrecognized section and content) Personnel Name: Sumanth Pearce MD Address: Address: [address] [place] [address] FOR RECORDS PERTAINING TO PATIENTS WHO ARE [...] BE BASED ON THE PRIMARY CLINICAL RECORDS. [facility] [facility]. provides no warranty or guarantee of the accuracy or completeness of information in this document.
[2024-04-28 09:54] LABS: Anion Gap 9.9; BUN Creatinine Ratio 19.2; Calcium 9.7 mg/dL (8.5-10.1); Carbon Dioxide 26.7 mmol/L (21.0-32.0); Chloride 102 mmol/L (98-107); Estimated GFR (African America >60 (>=60 mL/min/1.73m^2); Estimated GFR (Non-African Ame 52 (>=60 mL/min/1.73m^2); Glucose 98 mg/dL (74-106); Potassium 4.6 mmol/L (3.5-5.1); Sodium 134 mmol/L (136-145)
== END 2024-04-28 09:10 | disposition home or self-care (01) ==
LOC: LAB 09:13
PROVIDERS: PCP Family Medicine; Visit Provider Family Medicine
DX: E87.6 Hypokalemia (principal)
CPT/HCPCS: 36415; 80048

== ENCOUNTER 2024-09-21 09:07 | Outpatient (OUT) | payer MEDICARE, SELFPAY ==
[2024-09-21 10:11] LABS: Hematocrit 31.5 % (36.0-48.0); Hemoglobin 9.8 g/dL (12.0-16.0); Immature Granulocytes Abs Auto 0.03 10^3/uL (0.00-0.03); Immature Granulocytes Pct Auto 0.3 % (0.0-0.5); Lymphocytes Absolute Auto 1.0 10^3/uL (1.2-3.8); Mean Corpuscular HGB Conc 31.1 g/dL (29.9-35.2); Mean Corpuscular Hemoglobin 24.6 pg (26.7-34.0); Mean Corpuscular Volume 79.1 fL (81.0-99.0); Platelet Count 395 10^3/uL (150-450); Red Blood Count 3.98 10^6/uL (4.20-5.40); White Blood Count 10.3 10^3/uL (4.0-11.0)
[2024-09-21 10:30] LABS: Alanine Aminotransferase 20 U/L (14-59); Albumin Globulin Ratio 0.9; Albumin Level 3.8 g/dL (3.4-5.0); Alkaline Phosphatase 88 U/L (46-116); Anion Gap 16.6; Aspartate Amino Transferase 19 U/L (15-37); Blood Urea Nitrogen 18.0 mg/dL (7.0-18.0); Calcium 9.8 mg/dL (8.5-10.1); Carbon Dioxide 22.1 mmol/L (21.0-32.0); Chloride 104 mmol/L (98-107); Cholesterol 230 mg/dL (<=200); Estimated GFR (African America 57 (>=60 mL/min/1.73m^2); Estimated GFR (Non-African Ame 47 (>=60 mL/min/1.73m^2); Free T3 2.17 pg/mL (2.18-3.98); Globulin 4.1 g/dL; Glucose 101 mg/dL (74-106); HDL Cholesterol 123 mg/dL (40-60); NT Pro B Type Natriuretic Pept 127.0 pg/mL (<=900.0); Potassium 3.7 mmol/L (3.5-5.1); Sodium 139 mmol/L (136-145); Thyroid Stimulating Hormone 0.922 uIU/mL (0.358-3.740); Total Protein 7.9 g/dL (6.4-8.2); Triglycerides 55 mg/dL (<=150); VLDL CHOLESTEROL 11.0 mg/dL
[2024-09-21 10:39] LABS: Iron 37.0 ug/dL (50.0-170.0)
== END 2024-09-21 09:08 | disposition home or self-care (01) ==
LOC: LAB 09:09
PROVIDERS: PCP Family Medicine; Visit Provider Family Medicine
DX: R35.0 Frequency of micturition (principal); I50.9 Heart failure, unspecified; J44.9 Chronic obstructive pulmonary disease, unspecified; J45.909 Unspecified asthma, uncomplicated; K21.9 Gastro-esophageal reflux disease without esophagitis; E03.9 Hypothyroidism, unspecified; R03.0 Elevated blood-pressure reading, without diagnosis of hypertension; E78.5 Hyperlipidemia, unspecified; R73.09 Other abnormal glucose; D64.9 Anemia, unspecified; E55.9 Vitamin D deficiency, unspecified; I11.0 Hypertensive heart disease with heart failure; I50.30 Unspecified diastolic (congestive) heart failure
CPT/HCPCS: 36415; 80053; 80061; 82306; 83036; 83540; 83880; 84436; 84443; 84481; 85025

== ENCOUNTER 2024-10-19 08:50 | Outpatient (OUT) | payer MEDICARE, SELFPAY ==
--- NOTE | 2024-10-19 08:51 | MM_ITS ---
Patient Name: JESSICA KIRKPATRICK MR#: [id number] : 1950 Exam Date: 10/19/2024 Ordering Doctor: DR SUMANTH PEARCE . RADIOLOGY REPORT PROCEDURE: MM TOMOSYNTHESIS SCREENING BI COMPARISON: MM TOMOSYNTHESIS SCREENING BI, 10/16/2023. MG MAMM SCREEN KARTHIK W CAD, 06/11/2016. MG MAMM LT UNI W CAD DIG, 07/07/2013. MG MAMM KARTHIK SCRN W CAD DIG, 01/05/2013. INDICATIONS: Screening Calculator Name NCI Breast Cancer Risk Assessment Tool 5 Year Breast Cancer Risk 2.40% Lifetime Breast Cancer Risk 5.80% Personal Breast Cancer No Personal Ovarian Cancer No Treatments None Family Cancers Mother with ovarian cancer at age 44. LOCATION: [facility] BREAST COMPOSITION: The breasts are heterogeneously dense, which may obscure small masses. FINDINGS: RIGHT BREAST: No significant suspicious finding. LEFT BREAST: No significant suspicious finding. DIAGNOSTIC CATEGORY 1--NEGATIVE. RECOMMENDATIONS: ROUTINE MAMMOGRAM AND CLINICAL EVALUATION IN 12 MONTHS. Dictated by: Ha Vieira DO on 10/19/2024 at 12:10 Approved by: Ha Vieira DO on 10/19/2024 at 12:26
--- OUTSIDE RECORDS SUMMARY | 2024-10-19 08:56 | XMS_ITS | CCD ---
Author Organization [facility] Care Team Providers Care Poultry Scalder Name Role Phone Sumanth Pearce Primary Care Physician [phone] ., DR JULIO Admitting Unavailable HOY [...] Medication Allergies] Propensity to adverse reactions (disorder) [facility] Repository Medications Current Medications Medication Drug [...] Interpretation and review of laboratory results Abnormal [facility] Potassium [Moles/Vol] 2.7 mmol/L Critically low 3.5 - 5.1 mmol/L [facility] Comment on above: RESULTS CALLED TO LIZABETH AVILA LPN BY Daisy Joseph at [address] [facility] CBC WITH PLATELET NO DI FFERENTIALon 02-29-2024 Erythrocyte distribution width (RBC) [Ratio] 19.5 % High 11.0 - 15.0 % [facility] Hematocrit (Bld) [Volume fraction] 31.4 % Low 36.0 - 48.0 % [facility] Hemoglobin (Bld) [Mass/Vol] 9.9 g/dL Low 12.0 - 16.0 g/dL [facility] Interpretation and review of laboratory results Abnormal [facility] MCH (RBC) [Entitic mass] 26.1 pg Low 26.7 - 34.0 pg [facility] MCHC (RBC) [Mass/Vol] 31.5 g/dL 29.9 - 35.2 g/dL [facility] MCV (RBC) [Entitic vol] 82.8 fL 81.0 - 99.0 fL [facility] Platelet mean volume (Bld) [Entitic vol] 10.7 fL 9.5 - 13.5 fL [facility] TBH PLT 550 High [facility] TB RBC 3.79 Low [facility] TB WBC 12.9 High [facility] 06-27-2023 [...] Heart disease: Brother. Ovarian cancer: Mother. Normal [facility] Comment on above: Result Comment: Elec tronically Signed By: HERBERT CONKLIN, Joann Mittal\Date and Time Signed: 06/27/23 14:41 EDT Formson 06-26-2023 Forms [id number] Normal Darvin [facility] Ambulatory Visit Summaryon 0 06-25-2023 Ambulatory [...] for choosing us for your care. Normal [facility] Operative Reporton Operative Report [id number]#[id number] Normal [facility] CALCIUMon 04-23-2022 Calcium [Mass/Vol] 8.8 mg/dL Normal 8.5-10.1 [facility] Comment on above: Performed By: #### T 4, CMP, FT3, TSH, LIPID #### [facility] [address] [address] [address] Juan M Soria CREATININEon 04-23-2022 Creatinine [Mass/Vol] 0.77 mg/dL Normal 0.55-1.02 [facility] Comment on above: Performed By: #### T 4, CMP, FT3, TSH, LIPID #### [facility] [address] [address] [address] Juan M Soria EGFR-AF ARMENIAN >60 Normal >=60 [facility] Comment on above: Performed By: #### T 4, CMP, FT3, TSH, LIPID #### [facility] [address] [address] [address] Juan M Soria EGFR-NON AF ARMENIAN >60 Normal >=60 [facility] Comment on above: Performed By: #### T 4, CMP, FT3, TSH, LIPID #### [facility] [address] [address] [address] Juan M Soria XR DEXA BONE [...] Normal [facility] CBC AUTO DIFFon 10-31-2021 BASO # 0.1 103/ul Normal 0.0-0.1 [facility] Comment on above: Performed By: #### C BC #### [facility] [address] [place] [address] Dr. Juan M Soria Basophils/100 WBC (Bld) 0.8 % Normal 0.2-2.0 [facility] Comment on above: Performed By: #### C BC #### [facility] [address] [place] [address] Dr. Juan M Soria EO # 0.2 103/ul Normal 0.0-0.7 [facility] Comment on above: Performed By: #### C BC #### [facility] [address] [place] [address] Dr. Juan M Soria Eosinophils/100 WBC (Bld) 3.6 % Normal 0.9-7.0 [facility] Comment on above: Performed By: #### C BC #### [facility] [address] [place] [address] Dr. Juan M Soria Erythrocyte distribution width (RBC) [Ratio] 14.9 % Normal 11.0-15.0 [facility] Comment on above: Performed By: #### C BC #### [facility] [address] [place] [address] Dr. Juan M Soria Hematocrit (Bld) [Volume fraction] 39.7 % Normal 36.0-48.0 [facility] Comment on above: Performed By: #### C BC #### [facility] [address] [place] [address] Dr. Juan M Soria Hemoglobin (Bld) [Mass/Vol] 12.7 g/dL Normal 12.0-16.0 [facility] Comment on above: Performed By: #### C BC #### [facility] [address] [place] [address] Dr. Juan M Soria IG # 0.01 10e3/ul Normal 0.00-0.03 [facility] Comment on above: Performed By: #### C BC #### [facility] [address] [place] [address] Dr. Juan M Soria IG % 0.2 % Normal 0.0-0.5 [facility] Comment on above: Performed By: #### C BC #### [facility] [address] [place] [address] Dr. Juan M Soria LYMPH # 1.2 103/ul Normal 1.2-3.8 [facility] Comment on above: Performed By: #### C BC #### [facility] [address] [place] [address] Dr. Juan M Soria Lymphocytes/100 WBC (Bld) 19.8 % Critically low 20.5-60.0 [facility] Comment on above: Performed By: #### C BC #### [facility] [address] [place] [address] Dr. Juan M Soria MANUAL DIFF REQ NO Normal [facility] Comment on above: Performed By: #### C BC #### [facility] [address] [place] [address] Dr. Juan M Soria MCH (RBC) [Entitic mass] 27.0 pg Normal 26.7-34.0 [facility] Comment on above: Performed By: #### C BC #### [facility] [address] [place] [address] Dr. Juan M Soria MCHC (RBC) [Mass/Vol] 32.0 g/dL Normal 29.9-35.2 [facility] Comment on above: Performed By: #### C BC #### [facility] [address] [place] [address] Dr. Juan M Soria MCV (RBC) [Entitic vol] 84.3 fL Normal 81.0-99.0 [facility] Comment on above: Performed By: #### C BC #### [facility] [address] [place] [address] Dr. Juan M Soria MONO # 0.5 103/ul Normal 0.3-0.8 [facility] Comment on above: Performed By: #### C BC #### [facility] [address] [place] [address] Dr. Juan M Soria Monocytes/100 WBC (Bld) 8.1 % Normal 1.7-12.0 [facility] Comment on above: Performed By: #### C BC #### [facility] [address] [place] [address] Dr. Juan M Soria NEUT # 4.0 103/ul Normal 1.4-6.5 [facility] Comment on above: Performed By: #### C BC #### [facility] [address] [place] [address] Dr. Juan M Soria Neutrophils/100 WBC (Bld) 67.5 % Normal 43.0-75.0 [facility] Comment on above: Performed By: #### C BC #### [facility] [address] [place] [address] Dr. Juan M Soria Platelet mean volume (Bld) [Entitic vol] 9.3 fL Critically low 9.5-13.5 [facility] Comment on above: Performed By: #### C BC #### [facility] [address] [place] [address] Dr. Juan M Soria PLT 245 103/ul Normal 150-450 [facility] Comment on above: Performed By: #### C BC #### [facility] [address] [place] [address] Dr. Juan M Soria RBC 4.71 106/ul Normal 4.20-5.40 [facility] Comment on above: Performed By: #### C BC #### [facility] [address] [place] [address] Dr. Juan M Soria WBC 5.9 103/ul Normal 4.0-11.0 [facility] Comment on above: Performed By: #### C BC #### [facility] [address] [address] [address] Juan M Soria FERRITINon 10-31-2021 Ferritin [Mass/Vol] 47.0 ng/mL Normal 8.0-252.0 [facility] Comment on above: Performed By: #### T 4, CMP, FT3, TSH, LIPID #### [facility] [address] [place] [address] Dr. Juan M Soria IRONon 10-31-2021 Iron [Mass/Vol] 81.0 ug/dL Normal 50.0-170.0 [facility] Comment on above: Performed By: #### I CORINA, FERR #### [facility] [address] [place] [address] Dr. Juan M Soria XR COLONon 08-02-2021 XR COLON EXAMINATION: XR COLO N AIR CONTR., XR COLON HISTORY: Iron deficiency anemia COMPARISON: No relevant comparison available. FLUOROSCOPY TIME: Fluoro time measures 3.9 minutes and 22 images were obtained. TECHNIQUE: An air contrast barium enema examination was performed in the usual manner. No estimator printing abdominal radiograph was performed. Standard level fluoroscopic [...] Normal [facility] OCC BLD IMMUNO SCREENon OCCULT BLOOD Negative Normal NEGATIVE [facility] Comment on above: Performed By: #### T 4, CMP, FT3, TSH, LIPID #### [facility] [address] [place] [address] Dr. Juan M Soria CBC AUTO DIFFon 06-13-2021 BASO # 0.0 103/ul Normal 0.0-0.1 [facility] Comment on above: Performed By: #### T 4, CMP, FT3, TSH, LIPID #### [facility] [address] [place] [address] Dr. Juan M Soria Basophils/100 WBC (Bld) 0.6 % Normal 0.2-2.0 [facility] Comment on above: Performed By: #### T 4, CMP, FT3, TSH, LIPID #### [facility] [address] [place] [address] Dr. Juan M Soria EO # 0.3 103/ul Normal 0.0-0.7 [facility] Comment on above: Performed By: #### T 4, CMP, FT3, TSH, LIPID #### [facility] [address] [place] [address] Dr. Juan M Soria Eosinophils/100 WBC (Bld) 3.8 % Normal 0.9-7.0 [facility] Comment on above: Performed By: #### T 4, CMP, FT3, TSH, LIPID #### [facility] [address] [place] [address] Dr. Juan M Soria Erythrocyte distribution width (RBC) [Ratio] 16.6 % Critically high 11.0-15.0 [facility] Comment on above: Performed By: #### T 4, CMP, FT3, TSH, LIPID #### [facility] [address] [place] [address] Dr. Juan M Soria Hematocrit (Bld) [Volume fraction] 30.7 % Critically low 36.0-48.0 [facility] Comment on above: Performed By: #### T 4, CMP, FT3, TSH, LIPID #### [facility] [address] [place] [address] Dr. Juan M Soria Hemoglobin (Bld) [Mass/Vol] 9.1 g/dL Critically low 12.0-16.0 [facility] Comment on above: Performed By: #### T 4, CMP, FT3, TSH, LIPID #### [facility] [address] [place] [address] Dr. Juan M Soria IG # 0.03 10e3/ul Normal 0.00-0.03 [facility] Comment on above: Performed By: #### T 4, CMP, FT3, TSH, LIPID #### [facility] [address] [address] [address] Juan M Soria IG % 0.5 % Normal 0.0-0.5 [facility] Comment on above: Performed By: #### T 4, CMP, FT3, TSH, LIPID #### [facility] [address] [place] [address] Dr. Juan M Soria LYMPH # 1.1 103/ul Critically low 1.2-3.8 [facility] Comment on above: Performed By: #### T 4, CMP, FT3, TSH, LIPID #### [facility] [address] [place] [address] Dr. Juan M Soria Lymphocytes/100 WBC (Bld) 16.8 % Critically low 20.5-60.0 [facility] Comment on above: Performed By: #### T 4, CMP, FT3, TSH, LIPID #### [facility] [address] [place] [address] Dr. Juan M Soria MANUAL DIFF REQ NO Normal [facility] Comment on above: Performed By: #### T 4, CMP, FT3, TSH, LIPID #### [facility] [address] [place] [address] Dr. Juan M Soria MCH (RBC) [Entitic mass] 22.4 pg Critically low 26.7-34.0 [facility] Comment on above: Performed By: #### T 4, CMP, FT3, TSH, LIPID #### [facility] [address] [place] [address] Dr. Juan M Soria MCHC (RBC) [Mass/Vol] 29.6 g/dL Critically low 29.9-35.2 [facility] Comment on above: Performed By: #### T 4, CMP, FT3, TSH, LIPID #### [facility] [address] [place] [address] Dr. Juan M Soria MCV (RBC) [Entitic vol] 75.4 fL Critically low 81.0-99.0 [facility] Comment on above: Performed By: #### T 4, CMP, FT3, TSH, LIPID #### [facility] [address] [place] [address] Dr. Juan M Soria MONO # 0.4 103/ul Normal 0.3-0.8 [facility] Comment on above: Performed By: #### T 4, CMP, FT3, TSH, LIPID #### [facility] [address] [place] [address] Dr. Juan M Soria Monocytes/100 WBC (Bld) 5.9 % Normal 1.7-12.0 [facility] Comment on above: Performed By: #### T 4, CMP, FT3, TSH, LIPID #### [facility] [address] [place] [address] Dr. Juan M Soria NEUT # 4.8 103/ul Normal 1.4-6.5 [facility] Comment on above: Performed By: #### T 4, CMP, FT3, TSH, LIPID #### [facility] [address] [place] [address] Dr. Juan M Soria Neutrophils/100 WBC (Bld) 72.4 % Normal 43.0-75.0 [facility] Comment on above: Performed By: #### T 4, CMP, FT3, TSH, LIPID #### [facility] [address] [place] [address] Dr. Juan M Soria Platelet mean volume (Bld) [Entitic vol] 9.1 fL Critically low 9.5-13.5 [facility] Comment on above: Performed By: #### T 4, CMP, FT3, TSH, LIPID #### [facility] [address] [place] [address] Dr. Juan M Soria PLT 289 103/ul Normal 150-450 [facility] Comment on above: Performed By: #### T 4, CMP, FT3, TSH, LIPID #### [facility] [address] [place] [address] Dr. Juan M Soria RBC 4.07 106/ul Critically low 4.20-5.40 [facility] Comment on above: Performed By: #### T 4, CMP, FT3, TSH, LIPID #### [facility] [address] [place] [address] Dr. Juan M Soria WBC 6.7 103/ul Normal 4.0-11.0 [facility] Comment on above: Performed By: #### T 4, CMP, FT3, TSH, LIPID #### [facility] [address] [address] [address] Juan M Soria FREE T3on 06-13-2021 FREE T3 2.54 pg/mlL Normal 2.18-3.98 [facility] Comment on above: Performed By: #### T 4, CMP, FT3, TSH, LIPID #### [facility] [address] [place] [address] Dr. Juan M Soria GLYCOHEMOGLOBIN A1Con 2021 ADA RECOMMENDATION SEE BELOW Normal [facility] Comment on above: Result Comment: ADA RECOMMENDED LIMIT 4.0 - 6.0 ADA THERAPEUTIC TARGET < 7.0 ACTION SUGGESTED > 7.0 Performed By: #### T 4, CMP, FT3, TSH, LIPID #### [facility] [address] [place] [address] Dr. Juan M Soria Glucose [Mass/Vol] 123 mg/dL Normal [facility] Comment on above: Performed By: #### T 4, CMP, FT3, TSH, LIPID #### [facility] [address] [place] [address] Dr. Juan M Soria HbA1c (Bld) [Mass fraction] 5.9 % Normal 4.5-6.2 [facility] Comment on above: Performed By: #### T 4, CMP, FT3, TSH, LIPID #### [facility] [address] [place] [address] Dr. Juan M Soria LIPID PROFILEon 06-13-2021 CHOL-HDL RATIO NORM SEE BELOW Normal [facility] Comment on above: Result Comment: 3.3 - 4.4 LOW RISK 4.4 - 7.1 AVERAGE RISK 7.1 - 11.0 MODERATE RISK >11.0 HIGH RISK Performed By: #### T 4, CMP, FT3, TSH, LIPID #### [facility] [address] [place] [address] Dr. Juan M Soria Cholesterol [Mass/Vol] 249 mg/dL Critically high <=200 [facility] Comment on above: Performed By: #### T 4, CMP, FT3, TSH, LIPID #### [facility] [address] [address] [address] Juan M Soria Cholesterol in HDL [Mass/Vol] 132 mg/dL Critically high 40-60 [facility] Comment on above: Performed By: #### T 4, CMP, FT3, TSH, LIPID #### [facility] [address] [address] [address] Juna M Soria Cholesterol in LDL [Mass/Vol] 108.4 mg/dL Normal [facility] Comment on above: Performed By: #### T 4, CMP, FT3, TSH, LIPID #### [facility] [address] [place] [address] Dr. Juan M Soria Cholesterol.total/ Cholesterol in HDL [Mass ratio] 1.9 {ratio} Normal [facility] Comment on above: Performed By: #### T 4, CMP, FT3, TSH, LIPID #### [facility] [address] [place] [address] Dr. Juan M Soria HDL NORMAL > or = 60 mg/dl - LO W CARDIOVASCULAR RISK <40 mg/dl - HIGH CARDIOVASCULAR RISK Normal [facility] Comment on above: Performed By: #### T 4, CMP, FT3, TSH, LIPID #### [facility] [address] [place] [address] Dr. Juan M Soria LDL CALC NORMAL SEE BELOW Normal [facility] Comment on above: Result Comment: <100 mg/dl OPTIMAL 100 - 129 mg/dl NEAR OR ABOVE OPTIMAL 130 - 159 mg/dl BORDERLINE HIGH 160 - 189 mg/dl HIGH >190 mg/dl VERY HIGH Performed By: #### T 4, CMP, FT3, TSH, LIPID #### [facility] [address] [place] [address] Dr. Juan M Soria Triglyceride [Mass/Vol] 43 mg/dL Normal <=150 [facility] Comment on above: Performed By: #### T 4, CMP, FT3, TSH, LIPID #### [facility] [address] [place] [address] Dr. Juan M Soria VLDL CALC 8.6 mg/dL Normal [facility] Comment on above: Performed By: #### T 4, CMP, FT3, TSH, LIPID #### [facility] [address] [place] [address] Dr. Juan M Soria PROF 14(COMP METB)on 022 Albumin [Mass/Vol] 3.6 g/dL Normal 3.4-5.0 [facility] Comment on above: Performed By: #### T 4, CMP, FT3, TSH, LIPID #### [facility] [address] [place] [address] Dr. Juan M Soria Albumin/Globulin [Mass ratio] 0.9 {ratio} Normal [facility] Comment on above: Performed By: #### T 4, CMP, FT3, TSH, LIPID #### [facility] [address] [place] [address] Dr. Juan M Soria ALP [Catalytic activity/Vol] 106 U/L Normal 46-116 [facility] Comment on above: Performed By: #### T 4, CMP, FT3, TSH, LIPID #### [facility] [address] [place] [address] Dr. Juan M Soria ALT [Catalytic activity/Vol] 24 U/L Normal 14-59 [facility] Comment on above: Performed By: #### T 4, CMP, FT3, TSH, LIPID #### [facility] [address] [place] [address] Dr. Juan M Soria Anion gap [Moles/Vol] 10.9 mmol/L Normal [facility] Comment on above: Performed By: #### T 4, CMP, FT3, TSH, LIPID #### [facility] [address] [place] [address] Dr. Juan M Soria AST [Catalytic activity/Vol] 18 U/L Normal 15-37 [facility] Comment on above: Performed By: #### T 4, CMP, FT3, TSH, LIPID #### [facility] [address] [place] [address] Dr. Juan M Soria Bilirubin [Mass/Vol] 0.2 mg/dL Normal 0.2-1.0 [facility] Comment on above: Performed By: #### T 4, CMP, FT3, TSH, LIPID #### [facility] [address] [place] [address] Dr. Juan M Soria Calcium [Mass/Vol] 8.7 mg/dL Normal 8.5-10.1 [facility] Comment on above: Performed By: #### T 4, CMP, FT3, TSH, LIPID #### [facility] [address] [place] [address] Dr. Juan M Soria Chloride [Moles/Vol] 101 mmol/L Normal 98-107 [facility] Comment on above: Performed By: #### T 4, CMP, FT3, TSH, LIPID #### [facility] [address] [place] [address] Dr. Juan M Soria CO2 [Moles/Vol] 25.9 mmol/L Normal 21.0-32.0 [facility] Comment on above: Performed By: #### T 4, CMP, FT3, TSH, LIPID #### [facility] [address] [place] [address] Dr. Juan M Soria Creatinine [Mass/Vol] 0.83 mg/dL Normal 0.55-1.02 [facility] Comment on above: Performed By: #### T 4, CMP, FT3, TSH, LIPID #### [facility] [address] [place] [address] Dr. Juan M Soria EGFR-AF ARMENIAN >60 Normal >=60 [facility] Comment on above: Performed By: #### T 4, CMP, FT3, TSH, LIPID #### [facility] [address] [place] [address] Dr. Juan M Soria EGFR-NON AF ARMENIAN >60 Normal >=60 [facility] Comment on above: Performed By: #### T 4, CMP, FT3, TSH, LIPID #### [facility] [address] [place] [address] Dr. Juan M Soria Globulin (S) [Mass/Vol] 4.2 g/dL Normal [facility] Comment on above: Performed By: #### T 4, CMP, FT3, TSH, LIPID #### [facility] [address] [place] [address] Dr. Juan M Soria Glucose [Mass/Vol] 92 mg/dL Normal 74-106 [facility] Comment on above: Performed By: #### T 4, CMP, FT3, TSH, LIPID #### [facility] [address] [place] [address] Dr. Juan M Soria Potassium [Moles/Vol] 3.8 mmol/L Normal 3.5-5.1 [facility] Comment on above: Performed By: #### T 4, CMP, FT3, TSH, LIPID #### [facility] [address] [place] [address] Dr. Juan M Soria Protein [Mass/Vol] 7.8 g/dL Normal 6.1-8.2 [facility] Comment on above: Performed By: #### T 4, CMP, FT3, TSH, LIPID #### [facility] [address] [place] [address] Dr. Juan M Soria Sodium [Moles/Vol] 134 mmol/L Critically low 136-145 [facility] Comment on above: Performed By: #### T 4, CMP, FT3, TSH, LIPID #### [facility] [address] [place] [address] Dr. Juan M Soria Urea nitrogen [Mass/Vol] 10.0 mg/dL Normal 7.0-18.0 [facility] Comment on above: Performed By: #### T 4, CMP, FT3, TSH, LIPID #### [facility] [address] [place] [address] Dr. Juan M Soria Urea nitrogen/Creatinin e [Mass ratio] 12.0 mg/mg Normal [facility] Comment on above: Performed By: #### T 4, CMP, FT3, TSH, LIPID #### [facility] [address] [place] [address] Dr. Juan M Soria T4on 06-13-2021 T4 [Mass/Vol] 10.10 ug/dL Normal 4.80-13.90 [facility] Comment on above: Performed By: #### T 4, CMP, FT3, TSH, LIPID #### [facility] [address] [address] [address] Juan M Soria TSHon 06-13-2021 TSH Qn m[IU]/L Critically low 0.470-4.680 [facility] Comment on above: Performed By: #### T 4, CMP, FT3, TSH, LIPID #### [facility] [address] [place] [address] Dr. Juan M Soria TSH RANGE SEE BELOW Normal [facility] Comment on above: Result Comment: <0.3 4 UIU/ml HYPERTHYROID 0.34-5.60 UIU/ml EUTHYROID >5.60 UIU/ml HYPOTHYROID Performed By: #### T 4, CMP, FT3, TSH, LIPID #### [facility] [address] [place] [address] Dr. Juan M Soria VITAMIN D 25 OHon 06-13-2021 VIT D 25-OH 42.1 ng/mL Normal [facility] Comment on above: Performed By: #### T 4, CMP, FT3, TSH, LIPID #### [facility] [address] [place] [address] Dr. Juan M Soria VIT D RANGES SEE BELOW Normal [facility] Comment on above: Result Comment: <20 ng/mL Vit D deficient 20 - <30 ng/mL Vit D insufficient 30 - 100 ng/mL Vit D sufficient >100 ng/mL Potential Toxicity Performed By: #### T 4, CMP, FT3, TSH, LIPID #### [facility] [address] [place] [address] Dr. Juan M Soria Vital Signs Date Time Vital Sign Value Performing Clinician Faci lity 06-21-2021 15:25-0400 Blood Pressure Location Joann MARK [facility] [place] 06-21-2021 15:25-0400 Diastolic blood pressure 66 mm[Hg] Joann MARK [facility] [place] 06-21-2021 15:25-0400 Heart rate 96 /min Joann [...] Start: 06-25-2023 End: 06-25-2023 ambulatory Joann MARK Facility:[facility] Start: 06-25-2023 End: 06-25-2023 Patient encounter procedure Joann MARK [facility] [place] [facility] Start: 06-12-2023 End: 06-12-2023 ambulatory Joann MARK Facility:[id number] Start: 04-23-2022 End: 04-23-[address] SUMANTH PEARCE . Facility: Start: 04-17-2022 End: 04-18-[address] SUMANTH PEARCE . Facility:[facility] Start: 10-31-2021 End: 11-01-[address] SUMANTH PEARCE . Facility: Start: 08-02-2021 End: 08-02-[address] JOANN MARK . Facility:[facility] Start: 06-21-2021 End: 06-21-2021 Patient encounter procedure Joann MARK [facility] [place] Start: 06-15-2021 End: 06-15-[address] SUMANTH PEARCE . Facility:[facility] Start: 06-13-2021 End: 06-14-[address] SUMANTH PEARCE . Facility:[facility] Procedures Date Procedure Procedure Detail Performing Clinician Start: 03-01-2024 ALL POTASSIUM Nery Estrada MD Work Phone: Start: 02-29-2024 [facility] CBC WITH PLATELET NO DIFFERENTIAL Nery Estrada MD Work Phone: Start: 06-13-2023 Esophagogastroduodenoscopy Joann BERUMENL Start: 08-02-2021 Colonoscopy Joann BEURMENL Start: 08-02-2021 Esophagogastroduodenoscopy Joann NILL Cholecystectomy Joann NILL Closed fracture of p halanx of left little finger (disorder) Joann NILL H/O: L cataract extraction M ichael NILL H/O: R cataract extraction M ichael NILL Kyphoplasty of fract ure of spine using fluoroscopic guidance Joann BERUMENL Payers Date Payer Category Payer Medicare [id number] 2023 Medicare [id number] 1959 Medicare [id number] 1959 Unknown [id number] 1950 Unknown [id number] 2.16.84 [id number] 1950 Unknown [id number] 2.16.84 [id number] 1950 Unknown [id number] 2.16.84 [id number] 1950 Unknown [id number] 2.16.84 [id number] 1950 Unknown [id number] 2.16.84 [id number] 1950 Unknown [id number] 2.16.84 [id number] 1950 Unknown [id number] 2.16.8 [id number] 1950 Unknown [id number] 2.16.8 [id number] Social History Date Type Detail Facility Start: 06-21-2021 End: 06-25-2023 Tobacco smoking status Ex-smoker (finding) [facility] [place] Tobacco smoking status Smokeless tobacco user within last 30 days [facility] [place] Sex Assigned At Female [facility] [place] Tobacco smoking status [facility] Tobacco smoking consumption unknown [facility] Healthcare Start: 1950 Sex assigned at Not on file N [facility] Healthcare Functional Status Date Assessment Result Facility 06-25-2023 Functional Status N/A [facility] [place] History and physical note 06-14-2023 Note Date & Type Note Facility 06-14-2023 Note [id number] #[id number] [facility] Clinical Note 08-02-2021 Note Date & [...] barium enema results. CC: Sumanth Pearce M.D. [facility] Signed and Approved by: DR JOANN MARK . 08/03/2021 14:01:00 [facility] Evaluation + Plan note Note Date & Type Note Facility Evaluation + Plan note No data available for this section [facility] [place] [facility] Discharge instructions Note Date & Type Note Facility Hospital Discharge instructions No data available for this section [facility] [place] Progress note Note Date & Type Note Facility Progress note No data available for this section [facility] [place] Summary Purpose Family History No Family History Records Found No data available for this section No Family History Records Found Advance Directives No Advanced Directives Records FoundNo Advanced Directives Records Found Additional Source Comments INFORMATION SOURCE (unrecogn ized section and content) DATE CREATED AUTHOR 04/23/2022 [facility] DATE CREATED AUTHOR AUTHOR'S ORGANIZ ATION 08/03/2023 [facility] Patient Care team informatio n (unrecognized section and content) Personnel Name: Sumanth Pearce MD Address: Address: [address] [place] [address] FOR RECORDS PERTAINING TO PATIENTS WHO ARE [...] BE BASED ON THE PRIMARY CLINICAL RECORDS. [facility]. provides no warranty or guarantee of the accuracy or completeness of information in this document.
== END 2024-10-19 08:51 | disposition home or self-care (01) ==
LOC: MAMMO 08:50
PROVIDERS: PCP Family Medicine; Visit Provider Family Medicine
DX: Z12.31 Encounter for screening mammogram for malignant neoplasm of breast (principal); Z80.41 Family history of malignant neoplasm of ovary
CPT/HCPCS: 77063; 77067

== ENCOUNTER 2024-10-26 09:11 | Outpatient (OUT) | payer MEDICARE, SELFPAY ==
--- OUTSIDE RECORDS SUMMARY | 2024-10-26 09:16 | XMS_ITS | CCD ---
Author Organization [facility] CliniSyoh Care Team Providers Care Concrete Curer Name Role Phone Sumanth Pearce Primary Care [...] Medication Allergies] Propensity to adverse reactions (disorder) [facility] Repository Medications Current Medications Medication [...] AVILA LPN BY Daisy Joseph at [address] [facility] CBC WITH PLATELET NO DI FFERENTIALon [...] [facility]ini c Noteon 06-27-2023 [...] Heart disease: Brother. Ovarian cancer: Mother. Normal [facility] Comment on above: Result Comment: Elec tronically Signed By: HERBERT CONKLIN, Joann Mittal\Date and Time Signed: 06/27/23 14:41 EDT Formson 06-26-2023 Forms [id number] Normal [facility] Ambulatory Visit Summaryon 0 06-25-2023 Ambulatory Visit [...] for choosing us for your care. Normal [facility] Operative Reporton Operative Report [id number] Normal [facility] CALCIUMon 04-23-2022 Calcium [Mass/Vol] 8.8 mg/dL Normal 8.5-10.1 [facility] Comment on above: Performed By: #### T 4, CMP, FT3, TSH, LIPID #### [facility] [address] [address] [address] Juan M Soria CREATININEon 04-23-2022 Creatinine [Mass/Vol] 0.77 mg/dL Normal 0.55-1.02 [facility] Comment on above: Performed By: #### T 4, CMP, FT3, TSH, LIPID #### [facility] [address] [address] [address] Juan M Soria EGFR-AF COSTA RICAN >60 Normal >=60 [facility] Comment on above: Performed By: #### T 4, CMP, FT3, TSH, LIPID #### [facility] [address] [address] [address] Juan M Soria EGFR-NON AF [place] R[place] >60 Normal >=60 [facility] Comment on above: Performed By: #### T 4, CMP, FT3, TSH, LIPID #### [facility] [address] [address] [address] Juan M Soria XR DEXA BONE [...] Normal [facility] CBC AUTO DIFFon 10-31-2021 BASO # 0.1 103/ul Normal 0.0-0.1 [facility] Comment on above: Performed By: #### C BC #### [facility] [address] [place] [address] Dr. Juan M Soria Basophils/100 WBC (Bld) 0.8 % Normal 0.2-2.0 [facility] Comment on above: Performed By: #### C BC #### [facility] [address] [place] [address] Dr. Juan M Soria EO # 0.2 103/ul Normal 0.0-0.7 [facility] Comment on above: Performed By: #### C BC #### [facility] [address] [place] [address] Dr. Juan M Soria Eosinophils/100 WBC (Bld) 3.6 % Normal 0.9-7.0 [facility] Comment on above: Performed By: #### C BC #### [facility] [address] [place] [address] Dr. Juan M Soria Erythrocyte distribution width (RBC) [Ratio] 14.9 % Normal 11.0-15.0 [facility] Comment on above: Performed By: #### C BC #### [facility] [address] [place] [address] Dr. Juan M Soria Hematocrit (Bld) [Volume fraction] 39.7 % Normal 36.0-48.0 [facility] Comment on above: Performed By: #### C BC #### [facility] [address] [place] [address] Dr. Juan M Soria Hemoglobin (Bld) [Mass/Vol] 12.7 g/dL Normal 12.0-16.0 [facility] Comment on above: Performed By: #### C BC #### [facility] [address] [place] [address] Dr. Juan M Soria IG # 0.01 10e3/ul Normal 0.00-0.03 [facility] Comment on above: Performed By: #### C BC #### [facility] [address] [place] [address] Dr. Juan M Soria IG % 0.2 % Normal 0.0-0.5 [facility] Comment on above: Performed By: #### C BC #### [facility] [address] [place] [address] Dr. Juan M Soria LYMPH # 1.2 103/ul Normal 1.2-3.8 [facility] Comment on above: Performed By: #### C BC #### [facility] [address] [place] [address] Dr. Juan M Soria Lymphocytes/100 WBC (Bld) 19.8 % Critically low 20.5-60.0 [facility] Comment on above: Performed By: #### C BC #### [facility] [address] [place] [address] Dr. Juan M Soria MANUAL DIFF REQ NO Normal [facility] Comment on above: Performed By: #### C BC #### [facility] [address] [place] [address] Dr. Juan M Soria MCH (RBC) [Entitic mass] 27.0 pg Normal 26.7-34.0 [facility] Comment on above: Performed By: #### C BC #### [facility] [address] [place] [address] Dr. Juan M Soria MCHC (RBC) [Mass/Vol] 32.0 g/dL Normal 29.9-35.2 [facility] Comment on above: Performed By: #### C BC #### [facility] [address] [place] [address] Dr. Juan M Soria MCV (RBC) [Entitic vol] 84.3 fL Normal 81.0-99.0 [facility] Comment on above: Performed By: #### C BC #### [facility] [address] [place] [address] Dr. Juan M Soria MONO # 0.5 103/ul Normal 0.3-0.8 [facility] Comment on above: Performed By: #### C BC #### [facility] [address] [place] [address] Dr. Juan M Soria Monocytes/100 WBC (Bld) 8.1 % Normal 1.7-12.0 [facility] Comment on above: Performed By: #### C BC #### [facility] [address] [place] [address] Dr. Juan M Soria NEUT # 4.0 103/ul Normal 1.4-6.5 [facility] Comment on above: Performed By: #### C BC #### [facility] [address] [place] [address] Dr. Juan M Soria Neutrophils/100 WBC (Bld) 67.5 % Normal 43.0-75.0 [facility] Comment on above: Performed By: #### C BC #### [facility] [address] [place] [address] Dr. Juan M Soria Platelet mean volume (Bld) [Entitic vol] 9.3 fL Critically low 9.5-13.5 [facility] Comment on above: Performed By: #### C BC #### [facility] [address] [place] [address] Dr. Juan M Soria PLT 245 103/ul Normal 150-450 [facility] Comment on above: Performed By: #### C BC #### [facility] [address] [place] [address] Dr. Juan M Soria RBC 4.71 106/ul Normal 4.20-5.40 [facility] Comment on above: Performed By: #### C BC #### [facility] [address] [place] [address] Dr. Juan M Soria WBC 5.9 103/ul Normal 4.0-11.0 [facility] Comment on above: Performed By: #### C BC #### [facility] [address] [address] [address] Juan M Soria FERRITINon 10-31-2021 Ferritin [Mass/Vol] 47.0 ng/mL Normal 8.0-252.0 [facility] Comment on above: Performed By: #### T 4, CMP, FT3, TSH, LIPID #### [facility] [address] [place] [address] Dr. Juan M Soria IRONon 10-31-2021 Iron [Mass/Vol] 81.0 ug/dL Normal 50.0-170.0 [facility] Comment on above: Performed By: #### I CORINA, FERR #### [facility] [address] [place] [address] Dr. Juan M Soria XR COLONon 08-02-2021 XR COLON EXAMINATION: XR COLO N AIR CONTR., XR COLON HISTORY: Iron deficiency anemia COMPARISON: No relevant comparison available. FLUOROSCOPY TIME: Fluoro time measures 3.9 minutes and 22 images were obtained. TECHNIQUE: An air contrast barium enema examination was performed in the usual manner. No wind site manager abdominal radiograph was performed. Standard level fluoroscopic [...] Normal [facility] OCC BLD IMMUNO SCREENon OCCULT BLOOD Negative Normal NEGATIVE [facility] Comment on above: Performed By: #### T 4, CMP, FT3, TSH, LIPID #### [facility] [address] [place] [address] Dr. Juan M Soria CBC AUTO DIFFon 06-13-2021 BASO # 0.0 103/ul Normal 0.0-0.1 [facility] Comment on above: Performed By: #### T 4, CMP, FT3, TSH, LIPID #### [facility] [address] [place] [address] Dr. Juan M Soria Basophils/100 WBC (Bld) 0.6 % Normal 0.2-2.0 [facility] Comment on above: Performed By: #### T 4, CMP, FT3, TSH, LIPID #### [facility] [address] [place] [address] Dr. Juan M Soria EO # 0.3 103/ul Normal 0.0-0.7 [facility] Comment on above: Performed By: #### T 4, CMP, FT3, TSH, LIPID #### [facility] [address] [place] [address] Dr. Juan M Soria Eosinophils/100 WBC (Bld) 3.8 % Normal 0.9-7.0 [facility] Comment on above: Performed By: #### T 4, CMP, FT3, TSH, LIPID #### [facility] [address] [place] [address] Dr. Juan M Soria Erythrocyte distribution width (RBC) [Ratio] 16.6 % Critically high 11.0-15.0 [facility] Comment on above: Performed By: #### T 4, CMP, FT3, TSH, LIPID #### [facility] [address] [place] [address] Dr. Juan M Soria Hematocrit (Bld) [Volume fraction] 30.7 % Critically low 36.0-48.0 [facility] Comment on above: Performed By: #### T 4, CMP, FT3, TSH, LIPID #### [facility] [address] [place] [address] Dr. Juan M Soria Hemoglobin (Bld) [Mass/Vol] 9.1 g/dL Critically low 12.0-16.0 [facility] Comment on above: Performed By: #### T 4, CMP, FT3, TSH, LIPID #### [facility] [address] [place] [address] Dr. Juan M Soria IG # 0.03 10e3/ul Normal 0.00-0.03 [facility] Comment on above: Performed By: #### T 4, CMP, FT3, TSH, LIPID #### [facility] [address] [address] [address] Juan M Soria IG % 0.5 % Normal 0.0-0.5 [facility] Comment on above: Performed By: #### T 4, CMP, FT3, TSH, LIPID #### [facility] [address] [place] [address] Dr. Juan M Soria LYMPH # 1.1 103/ul Critically low 1.2-3.8 [facility] Comment on above: Performed By: #### T 4, CMP, FT3, TSH, LIPID #### [facility] [address] [place] [address] Dr. Juan M Soria Lymphocytes/100 WBC (Bld) 16.8 % Critically low 20.5-60.0 [facility] Comment on above: Performed By: #### T 4, CMP, FT3, TSH, LIPID #### [facility] [address] [place] [address] Dr. Juan M Soria MANUAL DIFF REQ NO Normal [facility] Comment on above: Performed By: #### T 4, CMP, FT3, TSH, LIPID #### [facility] [address] [place] [address] Dr. Juan M Soria MCH (RBC) [Entitic mass] 22.4 pg Critically low 26.7-34.0 [facility] Comment on above: Performed By: #### T 4, CMP, FT3, TSH, LIPID #### [facility] [address] [place] [address] Dr. Juan M Sroia MCHC (RBC) [Mass/Vol] 29.6 g/dL Critically low 29.9-35.2 [facility] Comment on above: Performed By: #### T 4, CMP, FT3, TSH, LIPID #### [facility] [address] [place] [address] Dr. Juan M Soria MCV (RBC) [Entitic vol] 75.4 fL Critically low 81.0-99.0 [facility] Comment on above: Performed By: #### T 4, CMP, FT3, TSH, LIPID #### [facility] [address] [place] [address] Dr. Juan M Soria MONO # 0.4 103/ul Normal 0.3-0.8 [facility] Comment on above: Performed By: #### T 4, CMP, FT3, TSH, LIPID #### [facility] [address] [place] [address] Dr. Juan M Soria Monocytes/100 WBC (Bld) 5.9 % Normal 1.7-12.0 [facility] Comment on above: Performed By: #### T 4, CMP, FT3, TSH, LIPID #### [facility] [address] [place] [address] Dr. Juan M Soria NEUT # 4.8 103/ul Normal 1.4-6.5 [facility] Comment on above: Performed By: #### T 4, CMP, FT3, TSH, LIPID #### [facility] [address] [place] [address] Dr. Juan M Soria Neutrophils/100 WBC (Bld) 72.4 % Normal 43.0-75.0 [facility] Comment on above: Performed By: #### T 4, CMP, FT3, TSH, LIPID #### [facility] [address] [place] [address] Dr. Juan M Soria Platelet mean volume (Bld) [Entitic vol] 9.1 fL Critically low 9.5-13.5 [facility] Comment on above: Performed By: #### T 4, CMP, FT3, TSH, LIPID #### [facility] [address] [place] [address] Dr. Juan M Soria PLT 289 103/ul Normal 150-450 [facility] Comment on above: Performed By: #### T 4, CMP, FT3, TSH, LIPID #### [facility] [address] [place] [address] Dr. Juan M Soria RBC 4.07 106/ul Critically low 4.20-5.40 [facility] Comment on above: Performed By: #### T 4, CMP, FT3, TSH, LIPID #### [facility] [address] [place] [address] Dr. Juan M Soria WBC 6.7 103/ul Normal 4.0-11.0 [facility] Comment on above: Performed By: #### T 4, CMP, FT3, TSH, LIPID #### [facility] [address] [address] [address] Juan M Soria FREE T3on 06-13-2021 FREE T3 2.54 pg/mlL Normal 2.18-3.98 [facility] Comment on above: Performed By: #### T 4, CMP, FT3, TSH, LIPID #### [facility] [address] [place] [address] Dr. Juan M Soria GLYCOHEMOGLOBIN A1Con 2021 ADA RECOMMENDATION SEE BELOW Normal [facility] Comment on above: Result Comment: ADA RECOMMENDED LIMIT 4.0 - 6.0 ADA THERAPEUTIC TARGET < 7.0 ACTION SUGGESTED > 7.0 Performed By: #### T 4, CMP, FT3, TSH, LIPID #### [facility] [address] [place] [address] Dr. Juan M Soria Glucose [Mass/Vol] 123 mg/dL Normal [facility] Comment on above: Performed By: #### T 4, CMP, FT3, TSH, LIPID #### [facility] [address] [place] [address] Dr. Juan M Soria HbA1c (Bld) [Mass fraction] 5.9 % Normal 4.5-6.2 [facility] Comment on above: Performed By: #### T 4, CMP, FT3, TSH, LIPID #### [facility] [address] [place] [address] Dr. Juan M Soria LIPID PROFILEon 06-13-2021 CHOL-HDL RATIO NORM SEE BELOW Normal [facility] Comment on above: Result Comment: 3.3 - 4.4 LOW RISK 4.4 - 7.1 AVERAGE RISK 7.1 - 11.0 MODERATE RISK >11.0 HIGH RISK Performed By: #### T 4, CMP, FT3, TSH, LIPID #### [facility] [address] [place] [address] Dr. Juan M Soria Cholesterol [Mass/Vol] 249 mg/dL Critically high <=200 [facility] Comment on above: Performed By: #### T 4, CMP, FT3, TSH, LIPID #### [facility] [address] [address] [address] Juan M Soria Cholesterol in HDL [Mass/Vol] 132 mg/dL Critically high 40-60 [facility] Comment on above: Performed By: #### T 4, CMP, FT3, TSH, LIPID #### [facility] [address] [address] [address] Juan M Soria Cholesterol in LDL [Mass/Vol] 108.4 mg/dL Normal [facility] Comment on above: Performed By: #### T 4, CMP, FT3, TSH, LIPID #### [facility] [address] [place] [address] Dr. Juan M Soria Cholesterol.total/ Cholesterol in HDL [Mass ratio] 1.9 {ratio} Normal [facility] Comment on above: Performed By: #### T 4, CMP, FT3, TSH, LIPID #### [facility] [address] [place] [address] Dr. Juan M Soria HDL NORMAL > or = 60 mg/dl - LO W CARDIOVASCULAR RISK <40 mg/dl - HIGH CARDIOVASCULAR RISK Normal [facility] Comment on above: Performed By: #### T 4, CMP, FT3, TSH, LIPID #### [facility] [address] [place] [address] Dr. Juan M Soria LDL CALC NORMAL SEE BELOW Normal [facility] Comment on above: Result Comment: <100 mg/dl OPTIMAL 100 - 129 mg/dl NEAR OR ABOVE OPTIMAL 130 - 159 mg/dl BORDERLINE HIGH 160 - 189 mg/dl HIGH >190 mg/dl VERY HIGH Performed By: #### T 4, CMP, FT3, TSH, LIPID #### [facility] [address] [place] [address] Dr. Juan M Soria Triglyceride [Mass/Vol] 43 mg/dL Normal <=150 [facility] Comment on above: Performed By: #### T 4, CMP, FT3, TSH, LIPID #### [facility] [address] [place] [address] Dr. Juan M Soria VLDL CALC 8.6 mg/dL Normal [facility] Comment on above: Performed By: #### T 4, CMP, FT3, TSH, LIPID #### [facility] [address] [place] [address] Dr. Juan M Sorai PROF 14(COMP METB)on 022 Albumin [Mass/Vol] 3.6 g/dL Normal 3.4-5.0 [facility] Comment on above: Performed By: #### T 4, CMP, FT3, TSH, LIPID #### [facility] [address] [place] [address] Dr. Juan M Soria Albumin/Globulin [Mass ratio] 0.9 {ratio} Normal [facility] Comment on above: Performed By: #### T 4, CMP, FT3, TSH, LIPID #### [facility] [address] [place] [address] Dr. Jua nM Soria ALP [Catalytic activity/Vol] 106 U/L Normal 46-116 [facility] Comment on above: Performed By: #### T 4, CMP, FT3, TSH, LIPID #### [facility] [address] [place] [address] Dr. Juan M Soria ALT [Catalytic activity/Vol] 24 U/L Normal 14-59 [facility] Comment on above: Performed By: #### T 4, CMP, FT3, TSH, LIPID #### [facility] [address] [place] [address] Dr. Juan M Soria Anion gap [Moles/Vol] 10.9 mmol/L Normal [facility] Comment on above: Performed By: #### T 4, CMP, FT3, TSH, LIPID #### [facility] [address] [place] [address] Dr. Juan M Soria AST [Catalytic activity/Vol] 18 U/L Normal 15-37 [facility] Comment on above: Performed By: #### T 4, CMP, FT3, TSH, LIPID #### [facility] [address] [place] [address] Dr. Juan M Soria Bilirubin [Mass/Vol] 0.2 mg/dL Normal 0.2-1.0 [facility] Comment on above: Performed By: #### T 4, CMP, FT3, TSH, LIPID #### [facility] [address] [place] [address] Dr. Juan M Soria Calcium [Mass/Vol] 8.7 mg/dL Normal 8.5-10.1 [facility] Comment on above: Performed By: #### T 4, CMP, FT3, TSH, LIPID #### [facility] [address] [place] [address] Dr. Juan M Soria Chloride [Moles/Vol] 101 mmol/L Normal 98-107 [facility] Comment on above: Performed By: #### T 4, CMP, FT3, TSH, LIPID #### [facility] [address] [place] [address] Dr. Juan M Soria CO2 [Moles/Vol] 25.9 mmol/L Normal 21.0-32.0 The [facility] Comment on above: Performed By: #### T 4, CMP, FT3, TSH, LIPID #### [facility] [address] [place] [address] Dr. Juan M Soria Creatinine [Mass/Vol] 0.83 mg/dL Normal 0.55-1.02 [facility] Comment on above: Performed By: #### T 4, CMP, FT3, TSH, LIPID #### [facility] [address] [place] [address] Dr. Juan M Soria EGFR-AF [place] >60 Normal >=60 The [facility] Comment on above: Performed By: #### T 4, CMP, FT3, TSH, LIPID #### [facility] [address] [place] [address] Dr. Juan M Soria EGFR-NON AF [place] >60 Normal >=60 [facility] Comment on above: Performed By: #### T 4, CMP, FT3, TSH, LIPID #### [facility] [address] [place] [address] Dr. Juan M Soria Globulin (S) [Mass/Vol] 4.2 g/dL Normal [facility] Comment on above: Performed By: #### T 4, CMP, FT3, TSH, LIPID #### [facility] [address] [place] [address] Dr. Juan M Soria Glucose [Mass/Vol] 92 mg/dL Normal 74-106 [facility] Comment on above: Performed By: #### T 4, CMP, FT3, TSH, LIPID #### [facility] [address] [place] [address] Dr. Juan M Soria Potassium [Moles/Vol] 3.8 mmol/L Normal 3.5-5.1 [facility] Comment on above: Performed By: #### T 4, CMP, FT3, TSH, LIPID #### [facility] [address] [place] [address] Dr. Juan M Soria Protein [Mass/Vol] 7.8 g/dL Normal 6.1-8.2 [facility] Comment on above: Performed By: #### T 4, CMP, FT3, TSH, LIPID #### [facility] [address] [place] [address] Dr. Jua nM Soria Sodium [Moles/Vol] 134 mmol/L Critically low 136-145 [facility] Comment on above: Performed By: #### T 4, CMP, FT3, TSH, LIPID #### [facility] [address] [place] [address] Dr. Juan M Soria Urea nitrogen [Mass/Vol] 10.0 mg/dL Normal 7.0-18.0 [facility] Comment on above: Performed By: #### T 4, CMP, FT3, TSH, LIPID #### [facility] [address] [place] [address] Dr. Juan M Soria Urea nitrogen/Creatinin e [Mass ratio] 12.0 mg/mg Normal [facility] Comment on above: Performed By: #### T 4, CMP, FT3, TSH, LIPID #### [facility] [address] [place] [address] Dr. Juan M Soria T4on 06-13-2021 T4 [Mass/Vol] 10.10 ug/dL Normal 4.80-13.90 [facility] Comment on above: Performed By: #### T 4, CMP, FT3, TSH, LIPID #### [facility] [address] [address] [address] Jua nM Soria TSHon 06-13-2021 TSH Qn m[IU]/L Critically low 0.470-4.680 [facility] Comment on above: Performed By: #### T 4, CMP, FT3, TSH, LIPID #### [facility] [address] [place] [address] Dr. Juan M Soria TSH RANGE SEE BELOW Normal [facility] Comment on above: Result Comment: <0.3 4 UIU/ml HYPERTHYROID 0.34-5.60 UIU/ml EUTHYROID >5.60 UIU/ml HYPOTHYROID Performed By: #### T 4, CMP, FT3, TSH, LIPID #### [facility] [address] [place] [address] Dr. Juan M Soria VITAMIN D 25 OHon 06-13-2021 VIT D 25-OH 42.1 ng/mL Normal [facility] Comment on above: Performed By: #### T 4, CMP, FT3, TSH, LIPID #### [facility] [address] [place] [address] Dr. Juan M Soria VIT D RANGES SEE BELOW Normal [facility] Comment on above: Result Comment: <20 ng/mL Vit D deficient 20 - <30 ng/mL Vit D insufficient 30 - 100 ng/mL Vit D sufficient >100 ng/mL Potential Toxicity Performed By: #### T 4, CMP, FT3, TSH, LIPID #### [facility] [address] [place] [address] Dr. Juan M Soria Vital Signs Date Time Vital Sign Value Performing Clinician Faci lity 06-21-2021 15:25-0400 Blood Pressure Location Joann MARK [facility] [place] 06-21-2021 15:25-0400 Diastolic blood pressure 66 mm[Hg] Joann MARK [facility] [place] 06-21-2021 15:25-0400 Heart rate 96 /min Joann MARK [facility] 06-21-2021 15:25-0400 Respiratory rate 16 /min Joann BERUMENL [facility] [place] 06-21-2021 15:25-0400 Systolic blood pressure 120 mm[Hg] Joann MARK [facility] [place] Encounters Encounter Date Encounter Type Care Provider [...] Start: 06-25-2023 End: 06-25-2023 ambulatory Joann MARK Facility:[facility] Start: 06-25-2023 End: 06-25-2023 Patient encounter procedure Joann MARK [facility] Start: 06-12-2023 End: 06-12-2023 ambulatory Joann MARK Facility:[id number] Start: 04-23-2022 End: 04-23-[address] [...] Medicare [id number] 2023 Medicare [id number] 1959 Medicare [id number] 1959 Unknown [id number] 1950 Unknown [id number] 2.16.84 [id number] 1950 Unknown [id number] 2.16.84 [id number] 1950 Unknown [id number] 2.16.84 [id number] 1950 Unknown [id number] 2.16.84 [id number] 1950 Unknown [id number] 2.16.84 [id number] 1950 Unknown [id number] 2.16.84 0.1.577783.3.579.2.593 1950 Unknown [id number] 2.16.8 [id number] 1950 Unknown [id number] 2.16.8 [id number] Social History Date Type Detail Facility Start: 06-21-2021 End: 06-25-2023 Tobacco smoking status Ex-smoker (finding) [facility] [place] Tobacco smoking status Smokeless tobacco user within last 30 days [facility] [place] Sex Assigned At Female [facility] Tobacco smoking status [facility] Tobacco smoking consumption unknown [facility] Healthcare Start: 1950 Sex assigned at Not on file N [facility] Healthcare Functional Status Date Assessment Result Facility 06-25-2023 Functional Status N/A [facility] History and physical note 06-14-2023 Note Date & Type Note Facility 06-14-2023 Note [id number] [facility] Clinical Note 08-02-2021 Note Date [...] barium enema results. CC: Sumanth Pearce M.D. [facility] Signed and Approved by: DR JOANN MARK . 08/03/2021 14:01:00 [facility] Evaluation + Plan note Note Date & Type Note Facility Evaluation + Plan note No data available for this section [facility] Discharge instructions Note Date & Type Note Facility Hospital Discharge instructions No data available for this section [facility] Progress note Note Date & Type Note Facility Progress note No data available for this section [facility] [place] Summary Purpose Family History No Family History Records Found No data available for this section No Family History Records Found Advance Directives No Advanced Directives Records FoundNo Advanced Directives Records Found Additional Source Comments INFORMATION SOURCE (unrecogn ized section and content) DATE CREATED AUTHOR 04/23/2022 [facility] DATE CREATED AUTHOR AUTHOR'S ORGANIZ ATION 08/03/2023 [facility] Patient Care team informatio n (unrecognized section and content) Personnel Name: Sumanth Pearce MD Address: Address: [address] [place] [address] FOR RECORDS PERTAINING TO PATIENTS WHO ARE [...] BE BASED ON THE PRIMARY CLINICAL RECORDS. [facility] [employer] [facility]. provides no warranty or guarantee of the accuracy or completeness of information in this document.
[2024-10-26 09:43] LABS: Hematocrit 37.1 % (36.0-48.0); Hemoglobin 11.5 g/dL (12.0-16.0); Immature Granulocytes Abs Auto 0.02 10^3/uL (0.00-0.03); Immature Granulocytes Pct Auto 0.3 % (0.0-0.5); Lymphocytes Absolute Auto 0.9 10^3/uL (1.2-3.8); Mean Corpuscular HGB Conc 31.0 g/dL (29.9-35.2); Mean Corpuscular Hemoglobin 25.7 pg (26.7-34.0); Mean Corpuscular Volume 82.8 fL (81.0-99.0); Platelet Count 294 10^3/uL (150-450); Red Blood Count 4.48 10^6/uL (4.20-5.40); White Blood Count 7.6 10^3/uL (4.0-11.0)
[2024-10-26 10:21] LABS: Free T3 3.13 pg/mL (2.18-3.98); Thyroid Stimulating Hormone 0.011 uIU/mL (0.358-3.740)
== END 2024-10-26 09:12 | disposition home or self-care (01) ==
LOC: LAB 09:12
PROVIDERS: PCP Family Medicine; Visit Provider Family Medicine
DX: E03.9 Hypothyroidism, unspecified (principal); E61.1 Iron deficiency
CPT/HCPCS: 36415; 84436; 84443; 84481; 85025